=== PATIENT | female | born 1930 | race Caucasian/White ===

== ENCOUNTER 2019-05-14 11:50 | Inpatient (IN) ==
--- OUTSIDE RECORDS SUMMARY | 2019-05-14 11:54 | External Medical Summary | Continuity of Care Document ---
:1930 Author Name Mary Padilla Address Unavailable Unavailable , Care Team Providers Name Role Phone Unavailable Unavailable Unavailable Seema MORRIS Unavailable [email or web address] Unavailable Unavailable Unavailable Unavailable Unavailable Problems Multiple sclerosis (340) (G35) Postmenopausal bleeding (627.1) (N95.0) Folliculitis (704.8) (L73.9) Allergies and Adverse Reactions Penicillins (Allergy) Medications Vitamin D TABS , M.D. Refills: 0 Azithromycin 250 MG Oral Tablet; TAKE 2 TABLETS ON DAY 1 THEN TAKE 1 TABLET A DAY FOR 4 DAYS. ALEXANDRA Stephenson Start: 25-Jan-2013 Quantity: 1 6 EA Disp Pack Refills: 0 Multi-Vitamin TABS , M.D. Refills: 0 Baclofen 20 MG Oral Tablet; Take 1 tablet twice daily , M.D. Refills: 0 Amantadine HCl - 100 MG Oral Capsule; TAKE 1 CAPSULE DAILY. , M.D. Quantity: 90 Refills: 3 CeleBREX 50 MG Oral Capsule , M.D. Refills: 0 Procedures History of Tubal Ligation Status: Comple ana laura History of Cataract Surgery Status: Comp leted History of Oral Surgery Tooth Extraction Status: Completed Immunizations Influenza On: 18-May-2003 0:00 Pneumo On: 30-Jun-2011 Social History - Smoking Status Never smoker Plan of Treatment Planned Observations Planned Goals not documented Results No Known Results Results not documented
[2019-05-14 12:49] LABS: Basophils # (auto) 0.05 K/uL (0-0.2); Basophils % (auto) 0.4 %; Eosinophils # (auto) 1.29 K/uL (0-0.5); Eosinophils % (auto) 9.7 %; Hematocrit (blood only) 37.3 % (37-47); Hemoglobin 11.8 g/dL (12.0-16.0); Immature Granulocytes # (auto) 0.04 K/uL (0.00-0.02); Immature Granulocytes % (auto) 0.3 %; Lymphocytes # (auto) 4.13 K/uL (1.2-3.4); Lymphocytes % (auto) 31.1 %; Mean Corpuscular Hemoglobin 27.8 pg (25-34); Mean Corpuscular Hgb Conc 31.6 g/dL (32-36); Mean Corpuscular Volume 87.8 fL (80-100); Mean Platelet Volume 10.3 fL (7.4-10.4); Monocytes % (auto) 7.5 %; Neutrophils # (auto) 6.77 K/uL (1.4-6.5); Platelet Count 234 K/uL (130-400); RDW Standard Deviation 51.6 fL (36.4-46.3); Red Blood Count 4.25 M/uL (4.2-5.4); White Blood Count 13.28 K/uL (4.8-10.8)
[2019-05-14 13:02] LABS: Partial Thromboplastin Ratio 0.9; Partial Thromboplastin Time 23.9 Seconds (21.0-31.0); Prothrombin Time 10.5 Seconds (9.0-12.0)
[2019-05-14 13:07] LABS: Albumin Level 2.8 gm/dl (3.4-5.0); BUN Creatinine Ratio 35.2 (10-20); Calcium 8.8 mg/dl (8.5-10.1); Creatinine Clr Calc Pharmacy 62.2 ml/min; Est GFR (African American) 94.5; Est GFR (Non-African American) 81.5; Potassium 3.8 mmol/L (3.5-5.1)
[2019-05-14 13:09] LABS: Albumin Globulin Ratio 0.8 (0.9-2); Bilirubin,Total 0.3 mg/dl (0.2-1); Globulin 3.7 gm/dl (2.5-4.0); Total Protein 6.5 gm/dl (6.4-8.2)
[2019-05-14] MEDS ORDERED: IOVERSOL 100ml IV PRN (13:59)
--- NOTE | 2019-05-14 14:13 | CT Scan Report ---
CT SCAN OF THE ABDOMEN AND PELVIS WITH IV CONTRAST CLINICAL HISTORY: Right lower quadrant abdominal pain. Rectal bleeding. COMPARISON STUDY: Chest CT dated 08/05/2012. Renal ultrasound dated 11/30/2013. TECHNIQUE: Following the IV administration of 93 cc of Optiray 320, CT scan of the abdomen and pelvi s is performed from the lung bases to the proximal femora. Images are reviewed in the axial, sagittal , and coronal planes. IV contrast was administered without complication. A dose lowering technique wa s utilized adhering to the principles of ALARA. The examination is degraded by motion artifact. CT DOSE: 468.29 mGy.cm FINDINGS: Lung bases: The heart is enlarged and without pericardial effusion. The coronary arteries are densely calcified. There is bibasilar scarring/atelectasis. No airspace consolidation or pleural effusion is seen at the lung bases. A left paramediastinal mass lesion is partially visualized along the left he art border. This was also seen in 2011. Liver: The contrast-enhanced liver is normal in size, contour, and attenuation. There is no intrahepa tic biliary ductal dilatation. The hepatic veins and portal veins are patent. Gallbladder: Unremarkable. Spleen: Normal in size and attenuation. Pancreas: Moderately atrophic and grossly unremarkable. Adrenal glands: Unremarkable. Kidneys: The contrast enhanced kidneys demonstrate cortical atrophy and are without hydronephrosis. T he kidneys enhance symmetrically. A 1.7 cm cyst is noted in the right kidney. Additional subcentimete r cortical hypodensities also likely represent cysts but are too small for definitive characterizatio n. Abdominal vasculature: The abdominal aorta is normal in course and caliber noting moderate to advance d atherosclerotic calcification. Bowel: There is advanced colonic diverticulosis without CT evidence of acute diverticulitis. No bowel obstruction is seen. Moderate constipation is observed. There are duodenal diverticula. The appendix is not visualized. The rectal wall appears mildly thickened and hyperemic and there is perirectal s tranding. Peritoneum: There is no intraperitoneal free air or abdominal ascites. There is a small fat-containin g umbilical hernia. Lymphadenopathy: None. Pelvic viscera: The bladder wall is mildly thickened and trabeculated. Numerous bladder diverticula a re identified. The uterus is normal as imaged. No adnexal lesion is seen. Skeletal structures: The skeletal structures are osteopenic. Moderate to advanced lumbosacral spondyl osis is observed. A moderate compression deformity is noted in L2. Advanced arthritic change is seen in the hips. Sclerotic change is noted in the sacroiliac joints. No lytic or blastic lesions are seen . IMPRESSION: 1. Findings suggest a mild proctitis. Clinical correlation will be required. 2. Advanced colonic diverticulosis without clear CT evidence of acute diverticulitis. 3. 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 This has been prese nt dating back to at least 2011 and remains pathologically indeterminant. 4. Cardiomegaly. 5. Moderate constipation. No bowel obstruction is seen. 6. There are numerous bladder diverticula. 7. Additional findings as above. Electronically signed by: Ramón Villareal M.D. 05/14/2019 2:12 PM
--- NOTE | 2019-05-14 16:41 | Emergency Department Note ---
Entered by Jeannine Kohler acting as a scribe for History of Present Illness General Chief complaint: Rectal Bleed Stated complaint: RECTAL BLEEDING Source: patient and family ( ) History of Present Illness Onset (ago): day(s) 3 Location: abdomen Pain Consistency: + intermittent Quality: + other (rectal bleeding) Associated symptoms: + other (negative abdominal pain; negative lighthead edness); no shortness of breath The patient is a 88 year old female with a PMHx of multiple sclerosis, TIA, CVA, and Afib with RVR who presents to the Emergency Room with complaints of intermittent rectal bleeding that began about 3 days prior to arrival, per the patient's . The patient's states that this has been bright red blood, but states that he does not know if the patient has had any black stool. The patient's reports that they have been performing tests on the patient at [facility], and states that these have shown the patient's hemoglobin decreasing and her white blood cell count increasing. The patient denies abdominal pain, shortness of breath, and lightheadedness. Per the patient's , the patient is on aspirin, but states that this was stopped after the patient's first episode of bloody stool. The patient's reports that the patient has a history of dementia, and has left-sided weakness from a previous stroke. Home Medications Home Medications Medication Instructions Recorded Confirmed Type amiodarone [Pacerone] 200 mg PO DAILY 05/14/19 05/14/19 History atorvastatin [Lipitor] 40 mg PO DAILY 05/14/19 05/14/19 History clobetasol-emollient 1 applic TOPICAL BID 05/14/19 05/14/19 History levetiracetam [Keppra] 750 mg PO BID 05/14/19 05/14/19 History levothyroxine [Synthroid] 125 mcg PO DAILY 05/14/19 05/14/19 History metoprolol tartrate 12.5 mg PO BID 05/14/19 05/14/19 History omeprazole 40 mg PO BID 05/14/19 05/14/19 History sennosides-docusate sodium 2 tab PO BID 05/14/19 05/14/19 History [Senna-S] Allergies Allergy/AdvReac Type Severity Reaction Status Date / Time Penicillins Allergy Mild RASH Verified 05/14/19 13:59 Past Med/Surg History Medical History Multiple sclerosis (Chronic) TIA (transient ischemic attack) (Chronic) Cerebral vascular disease (Chronic) Chest mass (Chronic) CVA (cerebral vascular accident) (Acute) Atrial fibrillation with RVR (Acute 11/25/13) CVA (cerebral vascular accident) (Acute) Surgical History History of dilation and curettage (Resolved) History of hysterectomy (Resolved) History of tubal ligation (Resolved) Family History Other No pertinent family history in first degree relatives Social History Preferred Language: Romanian marital status: Current Living Situation: [facility] Feels Safe at Home: Yes Smoking Status: Never smoker Review of Systems See HPI for pertinent positives & negatives. and A total of 10 systems reviewed and were otherwise negative Physical Exam Vital Signs Vital Signs - 24 hr 05/14/19 11:50 05/14/19 13:47 05/14/19 15:52 Temperature 36.4 C L Temperature Source Axillary Sepsis Recent Fever Within 48 Hours No Sepsis New/Unexplained Change in Mental Status No Sepsis Action Taken by Nursing No Action Required Pulse Rate 58 L Pulse Rate [Radial] 61 64 Pulse Rhythm [Radial] Regular Regular Respiratory Rate 18 20 20 Respiratory Effort / Characteristics Non-Labored Non-Labored Respiratory Depth Normal Normal Normal Respiratory Pattern Regular Regular Blood Pressure 150/90 H Blood Pressure [Right Arm] 168/82 H 181/82 H Blood Pressure Mean 110 Blood Pressure Mean [Right Arm] 110 115 Pulse Oximetry 96 93 95 Oxygen Delivery Method Room Air Room Air Room Air Constitutional: Vital signs reviewed. Eyes: Pupils are equal round reactive to light. Conjunctiva are noninjected. ENT: Pharynx is clear without erythema or exudate. Mucous membranes are moist. Neck supple without meningeal signs. Respiratory: Clear to auscultation bilaterally. Breath sounds are equal bilaterally. Cardiovascular: Regular rate and rhythm. No rubs or gallops. GI: Soft, nondistended and nontender. Bowel sounds are present. Rectal: Maroon colored stool. Guaiac positive. Musculoskeletal: No peripheral edema. No lower extremity tenderness. Integumentary: No cyanosis. Neurological: The patient is awake and alert. Left-sided weakness. Psychiatric: Normal affect. Course 1202: Past medical records reviewed. The patient was evaluated in room C12B. A complete history and physical exam was performed. Per the patient's [facility] records, three days ago the patient had two bloody soft bowel movements, had no blood bowel movements yesterday, and then had two bloody bowel movements today. Per the patient's records, the patient's stools are finesse in color and clotted blood was noted. The patient's records state that her hemoglobin was 12.3 two days ago, but was found to be 11.4 today. 1432: I talked to the patient and her about the test results. [facility] evaluation. Consultations Consultation #1: I [facility] for further evaluation. Time: 14:32 Administered Medications Ioversol (Optiray 320 100ml) 93 ml IV ONCE PRN PRN Reason: Interaction Checking Stop: 05/18/19 13:58 Last Admin: 05/14/19 14:00 Dose: 93 ml Documented by: [id number] Medical Decision Making Differential Diagnosis Differential diagnoses include GI bleed, external hemorrhoid, internal hemorrhoid, AV fistula, diverticulosis, anemia, and others were considered. Medical Records Attestation: I reviewed the patient's medical records. I did perform a limited focused review of portions of the patient's old chart on the electronic medical record. The patient has had no recent pertinent visits to this hospital. Home Medications Current Medication List: was personally reviewed by me Laboratory Data Attestation: I reviewed the patient's lab results. Result diagrams: 05/14/19 12:29 05/14/19 12:29 Lab Results 05/14/19 05/14/19 05/14/19 Range/Units 12:29 12:29 12:29 WBC 13.28 H (4.8-10.8) K/uL RBC 4.25 (4.2-5.4) M/uL Hgb 11.8 L (12.0-16.0) g/dL Hct 37.3 (37-47) % MCV 87.8 (80-100) fL MCH 27.8 (25-34) pg MCHC 31.6 L (32-36) g/dL RDW Std Deviation 51.6 H (36.4-46.3) fL RDW Coeff of Jessy 16.0 H (11.5-14.5) % Plt Count 234 (130-400) K/uL MPV 10.3 (7.4-10.4) fL Immature Gran % (Auto) 0.3 % Neut % (Auto) 51.0 % Lymph % (Auto) 31.1 % [place] % (Auto) 7.5 % Eos % (Auto) 9.7 % Baso % (Auto) 0.4 % Immature Gran # (Auto) 0.04 H (0.00-0.02) K/uL Neut # (Auto) 6.77 H (1.4-6.5) K/uL Lymph # (Auto) 4.13 H (1.2-3.4) K/uL [place] # (Auto) 1.00 H (0.11-0.59) K/uL Eos # (Auto) 1.29 H (0-0.5) K/uL Baso # (Auto) 0.05 (0-0.2) K/uL PT 10.5 (9.0-12.0) Seconds INR 1.0 (0.9-1.1) APTT 23.9 (21.0-31.0) Seconds PTT Ratio 0.9 Sodium 145 (136-145) mmol/L Potassium 3.8 (3.5-5.1) mmol/L Chloride 113 H (98-107) mmol/L Carbon Dioxide 25 (21-32) mmol/L Anion Gap 7.0 (3-11) BUN 21 H (7-18) mg/dl Creatinine 0.61 (0.6-1.2) mg/dl Est Cr Clr Drug Dosing 62.2 ml/min Est GFR ( Amer) 94.5 Est GFR (Non-Af Amer) 81.5 BUN/Creatinine Ratio 35.2 H (10-20) Glucose 88 (70-99) mg/dl Calcium 8.8 (8.5-10.1) mg/dl Total Bilirubin 0.3 (0.2-1) mg/dl AST 11 L (15-37) U/L ALT 13 (12-78) U/L Alkaline Phosphatase 146 H (45-117) U/L Total Protein 6.5 (6.4-8.2) gm/dl Albumin 2.8 L (3.4-5.0) gm/dl Globulin 3.7 (2.5-4.0) gm/dl Albumin/Globulin Ratio 0.8 L (0.9-2) Blood Type Antibody Screen 05/14/19 Range/Units 12:29 WBC (4.8-10.8) K/uL RBC (4.2-5.4) M/uL Hgb (12.0-16.0) g/dL Hct (37-47) % MCV (80-100) fL MCH (25-34) pg MCHC (32-36) g/dL RDW Std Deviation (36.4-46.3) fL RDW Coeff of Jessy (11.5-14.5) % Plt Count (130-400) K/uL MPV (7.4-10.4) fL Immature Gran % (Auto) % Neut % (Auto) % Lymph % (Auto) % [place] % (Auto) % Eos % (Auto) % Baso % (Auto) % Immature Gran # (Auto) (0.00-0.02) K/uL Neut # (Auto) (1.4-6.5) K/uL Lymph # (Auto) (1.2-3.4) K/uL [place] # (Auto) (0.11-0.59) K/uL Eos # (Auto) (0-0.5) K/uL Baso # (Auto) (0-0.2) K/uL PT (9.0-12.0) Seconds INR (0.9-1.1) APTT (21.0-31.0) Seconds PTT Ratio Sodium (136-145) mmol/L Potassium (3.5-5.1) mmol/L Chloride (98-107) mmol/L Carbon Dioxide (21-32) mmol/L Anion Gap (3-11) BUN (7-18) mg/dl Creatinine (0.6-1.2) mg/dl Est Cr Clr Drug Dosing ml/min Est GFR ( Amer) Est GFR (Non-Af Amer) BUN/Creatinine Ratio (10-20) Glucose (70-99) mg/dl Calcium (8.5-10.1) mg/dl Total Bilirubin (0.2-1) mg/dl AST (15-37) U/L ALT (12-78) U/L Alkaline Phosphatase (45-117) U/L Total Protein (6.4-8.2) gm/dl Albumin (3.4-5.0) gm/dl Globulin (2.5-4.0) gm/dl Albumin/Globulin Ratio (0.9-2) Blood Type O Negative Antibody Screen NEGATIVE Imaging Data Radiologist's Impression: Radiology results as stated below per my review and the radiologist's interpretation: CT SCAN OF THE ABDOMEN AND PELVIS WITH IV CONTRAST CLINICAL HISTORY: Right lower quadrant abdominal pain. Rectal bleeding. COMPARISON STUDY: Chest CT dated 08/05/2012. Renal ultrasound dated 11/30/2013. TECHNIQUE: Following the IV administration of 93 cc of Optiray 320, CT scan of the abdomen and pelvis is performed from the lung bases to the proximal femora. Images are reviewed in the axial, sagittal, and coronal planes. IV contrast was administered without complication. A dose lowering technique was utilized adhering to the principles of ALARA. The examination is degraded by motion artifact. CT DOSE: 468.29 mGy.cm FINDINGS: Lung bases: The heart is enlarged and without pericardial effusion. The coronary arteries are densely calcified. There is bibasilar scarring/atelectasis. No airspace consolidation or pleural effusion is seen at the lung bases. A left paramediastinal mass lesion is partially visualized along the left heart border. This was also seen in 2012. Liver: The contrast-enhanced liver is normal in size, contour, and attenuation. There is no intrahepatic biliary ductal dilatation. The hepatic veins and portal veins are patent. Gallbladder: Unremarkable. Spleen: Normal in size and attenuation. Pancreas: Moderately atrophic and grossly unremarkable. Adrenal glands: Unremarkable. Kidneys: The contrast enhanced kidneys demonstrate cortical atrophy and are without hydronephrosis. The kidneys enhance symmetrically. A 1.7 cm cyst is noted in the right kidney. Additional subcentimeter cortical hypodensities also likely represent cysts but are too small for definitive characterization. Abdominal vasculature: The abdominal aorta is normal in course and caliber not ing moderate to advanced atherosclerotic calcification. Bowel: There is advanced colonic diverticulosis without CT evidence of acute diverticulitis. No bowel obstruction is seen. Moderate constipation is observed. There are duodenal diverticula. The appendix is not visualized. The rectal wall appears mildly thickened and hyperemic and there is perirectal stranding. Peritoneum: There is no intraperitoneal free air or abdominal ascites. There is a small fat-containing umbilical hernia. Lymphadenopathy: None. Pelvic viscera: The bladder wall is mildly thickened and trabeculated. Numerous bladder diverticula are identified. The uterus is normal as imaged. No adnexal lesion is seen. Skeletal structures: The skeletal structures are osteopenic. Moderate to advanced lumbosacral spondylosis is observed. A moderate compression deformity is noted in L2. Advanced arthritic change is seen in the hips. Sclerotic change is noted in the sacroiliac joints. No lytic or blastic lesions are seen. IMPRESSION: 1. Findings suggest a mild proctitis. Clinical correlation will be required. 2. Advanced colonic diverticulosis without clear CT evidence of acute diverticulitis. 3. 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 This has been present dating back to at least 2011 and remains pathologically indeterminant. 4. Cardiomegaly. 5. Moderate constipation. No bowel obstruction is seen. 6. There are numerous bladder diverticula. 7. Additional findings as above. Electronically signed by: Ramón Villareal M.D. 05/14/2019 2:12 PM Blood Pressure Blood Pressure Findings: Elevated blood pressure Blood Pressure Disposition: further management by hospitalist [facility] Narrative I did evaluate the patient as noted above. Patient is presenting with rectal bleeding. I did examine the patient and she does have maroon stool which is strongly guaiac positive. She denies any abdominal pain but the detention staff stated that she did complain of right-sided pain earlier. IV access was established. The patient was placed on a continuous shelter monitor. She is hemodynamically stable. I did order and review the patient's blood work as noted in the electronic medical record. She is anemic with a hemoglobin of 11.8. Her white count is 13.28. I did order a CT of the abdomen and pelvis. I did review the images myself as well as the radiology report as described above. He has mild proctitis and diverticulosis without diverticulitis. I did discuss the test results with the patient and her . I did recommend hosp italization for further care and evaluation. I did discuss case with the hospitalist and case folder. Impression & Plan Lower GI bleed, Anemia, Diverticulosis, Proctitis Discharge Plan Visit Data Chief Complaint: Rectal Bleed Stated Complaint: RECTAL BLEEDING ED Provider: Kt Tracy Discharge Problem: Lower GI bleed, Anemia, Diverticulosis, Proctitis Patient Disposition: Being Evaluated by Hospitalist Forms Stand Alone Forms: My [facility] Prescriptions Prescriptions: No Action atorvastatin [Lipitor] 40 mg Tablet 40 mg PO DAILY RF: 0 amiodarone [Pacerone] 200 mg Tablet 200 mg PO DAILY RF: 0 sennosides-docusate sodium [Senna-S] 8.6-50 mg Tablet 2 tab PO BID RF: 0 omeprazole 40 mg Capsule,Delayed Release(Dr/Ec) 40 mg PO BID RF: 0 levothyroxine [Synthroid] 125 mcg Tablet 125 mcg PO DAILY RF: 0 clobetasol-emollient 0.05 % cream 1 applic topical BID RF: 0 levetiracetam [Keppra] 100 mg/mL Solution 750 mg PO BID RF: 0 metoprolol tartrate 25 mg Tablet 12.5 mg PO BID RF: 0 Referrals Referrals: Medina Morse [place] [Primary Care Provider] - Discharge Problem: Anemia Qualifiers: Anemia type: unspecified type Qualified Code(s): D64.9 - Anemia, unspecified The scribe's documentation has been prepared under my direction and personally reviewed by me in its entirety. I confirm that the note above accurately reflects all work, treatment, procedures, and medical decision making performed by me.
--- NOTE | 2019-05-14 16:57 | History & Physical Report ---
Date of Service May 14, 2019 Assessment & Plan (1) GI bleed: Admit to PCU on telemetry Vital signs every 4 hours Keep n.p.o. for the procedure EGD Consulted GI Dr. Sinha CBC every 6 hours Monitor CBC CMP Fluid hydration with normal saline 80 cc/h DVT prophylaxis SCDs and LOULOU devinantonieta DNR/DNI Present on Admission?: Yes (2) Diverticulosis: Patient has numerous diverticulosis without diverticulitis and proctitis. We will start empiric therapy for proctitis Cipro and Flagyl until GI give us new recommendations. Present on Admission?: Yes (3) Anemia: At this point is not clear if this is acute or chronic anemia. Will do iron studies and start patient on iron sulfate. Present on Admission?: Yes (4) CVA (cerebral vascular accident): Continue monitoring. EKG pending. 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 Present on Admission?: Yes History of Present Illness Chief Complaint: Blood in the stool Primary Care Provider: Mini [facility] Patient is a 88 years old female with past medical history of hypothyroidism, high hyperlipidemia, constipation, GERD, coronary artery disease, stroke, bedbound states that Mini who was brought to this morning with a concern that she has melena in her diaper for couple of days. Patient is in her usual state of health. 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 In the review of system has been said that patient had a dark stool for several days and that has been ongoing. He said that he did not see it himself but that was reported as small to moderate amount of stool on her diaper. Patient also complains of intermittent itch and lesions that he she has all over her body more on the right side. It does not appear to be in the dermatome distribution. Patient also has some lesions located on her left side and per her it migrates and it was first on her lower extremities and now is pretty much spread all over. Other than that patient denies fever, headache, chest pain, shortness of breath, abdominal pain, frequency, urgency, hemoptysis, hematuria, dysuria. Urine analysis pending. BNP pending. Labs are reviewed: WBC 13.28, hemoglobin 11.8, hematocrit 37.3, platelets 234, PT 10.5, INR 1 APTT 23.9. Sodium 145 potassium 3.8, chloride 113, BUN 21 creatinine 0.61, GFR 81.5, AST 11, ALT 13, alkaline phosphatase 146. CT of the abdomen and pelvis shows a mild proctitis. Advanced colonic diverticulosis without clear CT evidence of acute diverticulitis. A code and test clerk he has no mass lesion in the left upper chest is partially visualized. This was dating back in 2011 and remains pathologically indeterminant. Cardiomegaly. Moderate constipation no bowel obstruction is seen. There are numerous bladder diverticula. Decision was made to admit patient to PCU on telemetry for GI bleed Dr. Sinha lodging facilities manager is going to see the patient in the morning. Allergies Allergy/AdvReac Type Severity Reaction Status Date / Time Penicillins Allergy Mild RASH Verified 05/14/19 13:59 Home Medications Home Medications Medication Instructions Recorded Confirmed Type amiodarone [Pacerone] 200 mg PO DAILY 05/14/19 05/14/19 History atorvastatin [Lipitor] 40 mg PO DAILY 05/14/19 05/14/19 History clobetasol-emollient 1 applic TOPICAL BID 05/14/19 05/14/19 History levetiracetam [Keppra] 750 mg PO BID 05/14/19 05/14/19 History levothyroxine [Synthroid] 125 mcg PO DAILY 05/14/19 05/14/19 History metoprolol tartrate 12.5 mg PO BID 05/14/19 05/14/19 History omeprazole 40 mg PO BID 05/14/19 05/14/19 History sennosides-docusate sodium 2 tab PO BID 05/14/19 05/14/19 History [Senna-S] Past Med/Surg History Medical History Multiple sclerosis (Chronic) TIA (transient ischemic attack) (Chronic) Cerebral vascular disease (Chronic) Chest mass (Chronic) CVA (cerebral vascular accident) (Acute) Atrial fibrillation with RVR (Acute 11/25/13) CVA (cerebral vascular accident) (Acute) Surgical History History of dilation and curettage (Resolved) History of hysterectomy (Resolved) History of tubal ligation (Resolved) Family History Other No pertinent family history in first degree relatives Social History Preferred Language: Luxembourgish marital status: Current Living Situation: Long-Term Feels Safe at Home: Yes Smoking Status: Never smoker Review of Systems Review of Systems: All systems reviewed & are unremarkable except as noted in HPI & below Physical Exam Constitutional: WD/WN, vitals as above well developed and + frail appearing Eyes: PERRL, conjunctivae normal, anicteric sclerae ENMT: external ear and nose normal, oropharynx normal Neck: trachea midline, no thyromegaly Respiratory: normal respiratory effort, lungs clear to auscultation Cardiovascular: RRR, no murmur, no edema Vessels: dorsalis pedis pulses present Extremities: + pedal edema Gastrointestinal (Abdomen): normal bowel sounds, soft, nontender, no hepato splenomegaly Musculoskeletal: no cyanosis or clubbing, extremities motor strength 5/5 Left-sided weakness and face droop. Skin: Numerous skin lesions, papule as in different stages of healing very itchy. It could be either insect bite or scabies, fleabites. Neurologic: Left-sided weakness due to the stroke and paralysis Psychiatric: A+Ox3, euthymic affect Lymphatic: no cervical or axillary lymphadenopathy Results & Data Vital Signs (Past 12 Hours) Vital Signs Temp Pulse Pulse Resp BP BP Pulse Ox 05/14/19 15:52 64 20 181/82 H 95 05/14/19 13:47 61 20 168/82 H 93 05/14/19 11:50 36.4 C L 58 L 18 150/90 H 96 Code Status & VTE Plan Code Status DNR/DNI per her POA. Patient is dysarthric poor historian. VTE Prophylaxis Plan VTE Prophylaxis will be ordered: No PG Care Time/CCT Total # of Minutes Spent Total Time Spent with Patient: Total time spent is greater than 50% in coordination of care (as documented) at patient's floor/unit and/or counseling patient: (1) Anemia Anemia type: unspecified type Qualified Code(s): D64.9 - Anemia, unspecified
[2019-05-14] MEDS ORDERED: HydrALAZINE 10 MG TAB PO PRN (18:37)
[2019-05-14] MEDS ORDERED: hydrOXYzine HCl 10 MG TAB PO PRN (18:37)
[2019-05-14] MEDS ORDERED: PERMETHRIN 5% CR 60 GM TUBE EXT ONE ×2 (18:37→20:00)
[2019-05-14] MEDS ORDERED: ACETAMINOPHEN 325 MG TAB PO PRN (18:37)
[2019-05-14] MEDS ORDERED: LAVAGE SOLUTION 4000ML PO SCH (18:37)
[2019-05-14] MEDS ORDERED: ALUMINUM/MAGNESIUM SUSP 30 ML UDC PO PRN (18:37)
[2019-05-14] MEDS ORDERED: MAGNESIUM HYDROXIDE SUSP 30 ML UDC PO PRN (18:37)
[2019-05-14] MEDS ORDERED: ZOLPIDEM TARTRATE 5 MG TAB PO PRN (18:37)
[2019-05-14 19:01] LABS: Hematocrit (blood only) 39.7 % (37-47); Hemoglobin 12.4 g/dL (12.0-16.0); Mean Corpuscular Hemoglobin 27.4 pg (25-34); Mean Corpuscular Hgb Conc 31.2 g/dL (32-36); Mean Corpuscular Volume 87.6 fL (80-100); Mean Platelet Volume 9.3 fL (7.4-10.4); Platelet Count 235 K/uL (130-400); RDW Coefficient of Variation 15.8 % (11.5-14.5); RDW Standard Deviation 50.6 fL (36.4-46.3); Red Blood Count 4.53 M/uL (4.2-5.4); White Blood Count 11.97 K/uL (4.8-10.8)
[2019-05-14] MEDS: SODIUM CHLORIDE 0.9% 1000ML 1,000 ML IV SCH (20:19)
[2019-05-14] MEDS: levETIRAcetam ORAL SOLN 100MG/ML PO SCH (20:23)
[2019-05-14] MEDS: METOPROLOL TARTRATE 25 MG TAB PO SCH (20:25)
[2019-05-14] MEDS: PANTOprazole 40 MG TAB PO SCH (20:26)
[2019-05-14] MEDS: DOCUSATE SODIUM/SENNA 50/8.6MG TAB PO SCH (20:27)
[2019-05-14] MEDS: metroNIDAZOLE 500 MG/100 ML BAG IV SCH (20:28)
[2019-05-14] MEDS ORDERED: NON-FORMULARY MEDICATION (Omeprazole 40 MG) PO SCH (21:00)
[2019-05-14] MEDS: POLYETHYLENE (MIRALAX) 17 GM PACK PO SCH (21:53)
[2019-05-14] MEDS: cefTRIAXone SODIUM 1,000 MG in DEXTROSE 5% 50 ML IV SCH (21:54)
[2019-05-14] MEDS: EMBELINE E CREAM 0.05% 15 GM EXT SCH (21:55)
[2019-05-15 02:46] LABS: Appearance Urine Cloudy (Clear); Bacteria Urine Automated 3+ (Negative); Bilirubin Urine Negative (Negative); Blood Urine Trace (Negative); Color Urine Yellow; Epithelial Cell Urine Auto >30 /lpf (0-5); Glucose Urine UA Negative (Negative); Ketones Urine Negative (Negative); Leukocyte Esterase Urine 2+ (Negative); Nitrite Urine Negative (Negative); Protein Urine Negative (Negative); Specific Gravity Urine > 1.045 (1.000-1.030); Urobilinogen Urine Negative (Negative); WBC Urine Automated >30 /hpf (0-5)
[2019-05-15] MEDS: metroNIDAZOLE 500 MG/100 ML BAG IV SCH ×2 (04:01→11:39)
[2019-05-15] MEDS: LEVOTHYROXINE SODIUM 125 MCG TABLET PO SCH (05:31)
[2019-05-15 06:27] LABS: Basophils # (auto) 0.03 K/uL (0-0.2); Basophils % (auto) 0.3 %; Eosinophils # (auto) 1.14 K/uL (0-0.5); Eosinophils % (auto) 9.6 %; Hematocrit (blood only) 37.2 % (37-47); Hemoglobin 11.6 g/dL (12.0-16.0); Immature Granulocytes # (auto) 0.03 K/uL (0.00-0.02); Immature Granulocytes % (auto) 0.3 %; Lymphocytes % (auto) 26.9 %; Mean Corpuscular Hemoglobin 27.2 pg (25-34); Mean Corpuscular Hgb Conc 31.2 g/dL (32-36); Mean Corpuscular Volume 87.1 fL (80-100); Mean Platelet Volume 9.3 fL (7.4-10.4); Monocytes # (auto) 0.71 K/uL (0.11-0.59); Neutrophils # (auto) 6.79 K/uL (1.4-6.5); Neutrophils % (auto) 56.9 %; Platelet Count 223 K/uL (130-400); RDW Coefficient of Variation 15.7 % (11.5-14.5); RDW Standard Deviation 50.2 fL (36.4-46.3); Red Blood Count 4.27 M/uL (4.2-5.4); Reticulocyte % 2.3 % (0.5-2.0)
[2019-05-15 07:04] LABS: Calcium 8.6 mg/dl (8.5-10.1); Creatinine Clr Calc Pharmacy 67.1 ml/min; Est GFR (African American) 98.3; Est GFR (Non-African American) 84.8; Potassium 3.5 mmol/L (3.5-5.1)
[2019-05-15 07:07] LABS: Albumin Globulin Ratio 0.8 (0.9-2); Bilirubin,Total 0.5 mg/dl (0.2-1); Globulin 3.6 gm/dl (2.5-4.0); Total Protein 6.6 gm/dl (6.4-8.2)
[2019-05-15 07:33] LABS: Estimated Average Glucose 108 mg/dl; Hemoglobin A1C 5.4 % (4.5-5.6)
[2019-05-15 09:00] LABS: Folate (Folic Acid) 16.59 ng/ml (>5.38)
[2019-05-15] MEDS: SODIUM CHLORIDE 0.9% 1000ML 1,000 ML IV SCH (09:32)
[2019-05-15] MEDS: cefTRIAXone SODIUM 1,000 MG in DEXTROSE 5% 50 ML IV SCH ×2 (09:32→20:54)
[2019-05-15] MEDS: ATORVASTATIN 40 MG TAB PO SCH (11:40)
[2019-05-15] MEDS: PANTOprazole 40 MG TAB PO SCH (11:40)
[2019-05-15] MEDS: levETIRAcetam ORAL SOLN 100MG/ML PO SCH ×2 (11:40→20:55)
[2019-05-15] MEDS: AMIODARONE 200 MG TAB PO SCH (11:40)
[2019-05-15] MEDS: METOPROLOL TARTRATE 25 MG TAB PO SCH ×2 (11:40→20:52)
[2019-05-15] MEDS: POLYETHYLENE (MIRALAX) 17 GM PACK PO SCH (11:40)
[2019-05-15] MEDS: EMBELINE E CREAM 0.05% 15 GM EXT SCH (11:41)
[2019-05-15] MEDS: DOCUSATE SODIUM/SENNA 50/8.6MG TAB PO SCH ×2 (11:41→20:53)
--- NOTE | 2019-05-15 14:17 | Hospitalist Progress Note ---
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 no new findings (4) Proctitis: seen on CT continue on Flagyl, Rocephin (5) UTI (urinary tract infection): possible UTI with > 30 WBC on UA will continue on Rocephin follow up urine culture Subjective patient is pleasantly demented, cannot answer any questions at the bedside he says that she has had some dark stools in diaper past few days no abdominal pain, no vomiting to his knowledge, she has not appeared to be in distress Hb has been stable, 11.8 on admission, 11.6 today in the morning BMP at baseline UA showed possible UTI with > [address] with some proctitis, no diverticulitis, no other acute findings patient was NPO after midnight, will allow her to eat as there is no need for emergent scope Review of Systems Review of Systems: Unobtainable due to cognitive status (dementia) Physical Exam Constitutional: WD/WN, vitals as above Eyes: PERRL, conjunctivae normal, anicteric sclerae ENMT: external ear and nose normal, oropharynx normal Neck: trachea midline, no thyromegaly Respiratory: normal respiratory effort, lungs clear to auscultation Cardiovascular: RRR, no murmur, no edema Gastrointestinal (Abdomen): normal bowel sounds, soft, nontender, no hepatosplenomegaly Musculoskeletal: no cyanosis or clubbing, extremities motor strength 5/5 Skin: no rashes, warm and dry Neurologic: patellar DTR's 2+ bilat, sensation intact and PERRL, EOMI, acco mmodation nl, no face palsy, no dysarthria Psychiatric: Orientation: alert, oriented to person and cooperative; + not oriented to place and + not oriented to time Lymphatic: no cervical or axillary lymphadenopathy Results & Data Vital Signs (Past 12 Hours) Vital Signs Temp Pulse Pulse Resp BP BP Pulse Ox 05/15/19 12:15 65 05/15/19 12:01 36.6 C 79 18 162/71 H 94 05/15/19 07:03 36.5 C 68 18 140/95 93 05/15/19 03:05 36.4 C L 70 18 170/87 H 93 Laboratory Results Laboratory Results - last 24 hr 05/14/19 05/14/19 05/14/19 18:47 18:47 20:27 WBC 11.97 H RBC 4.53 Hgb 12.4 Hct 39.7 MCV 87.6 MCH 27.4 MCHC 31.2 L RDW Std Deviation 50.6 H RDW Coeff of Jessy 15.8 H Plt Count 235 MPV 9.3 Immature Gran % (Auto) Neut % (Auto) Lymph % (Auto) [place] % (Auto) Eos % (Auto) Baso % (Auto) Reticulocyte % (Auto) Immature Gran # (Auto) Neut # (Auto) Lymph # (Auto) [place] # (Auto) Eos # (Auto) Baso # (Auto) Reticulocyte # Sodium Potassium Chloride Carbon Dioxide Anion Gap BUN Creatinine Est Cr Clr Drug Dosing Est GFR ( Amer) Est GFR (Non-Af Amer) BUN/Creatinine Ratio Glucose Estimat Average Glucose Hemoglobin A1c Calcium Iron TIBC Total Bilirubin AST ALT Alkaline Phosphatase NT-Pro-B Natriuret Pep 461 Total Protein Albumin Globulin Albumin/Globulin Ratio Triglycerides Cholesterol LDL Cholesterol, Calc VLDL Cholesterol, Calc HDL Cholesterol Cholesterol/HDL Ratio Vitamin B12 Folate Urine Color Urine Appearance Urine pH Ur Specific [place] Urine Protein Urine Glucose (UA) Urine Ketones Urine Blood Urine Nitrite Urine Bilirubin Urine Urobilinogen Ur Leukocyte Esterase Urine WBC (Auto) Urine RBC (Auto) U Hyaline Cast (Auto) U Epithel Cells (Auto) Urine Bacteria (Auto) Nasal Screen MRSA (PCR) Negative 05/15/19 05/15/19 05/15/19 02:40 06:09 06:09 WBC 11.90 H RBC 4.27 Hgb 11.6 L Hct 37.2 MCV 87.1 MCH 27.2 MCHC 31.2 L RDW Std Deviation 50.2 H RDW Coeff of Jessy 15.7 H Plt Count 223 MPV 9.3 Immature Gran % (Auto) 0.3 Neut % (Auto) 56.9 Lymph % (Auto) 26.9 [place] % (Auto) 6.0 Eos % (Auto) 9.6 Baso % (Auto) 0.3 Reticulocyte % (Auto) 2.3 H Immature Gran # (Auto) 0.03 H Neut # (Auto) 6.79 H Lymph # (Auto) 3.20 Canyon # (Auto) 0.71 H Eos # (Auto) 1.14 H Baso # (Auto) 0.03 Reticulocyte # 0.10 Sodium 143 Potassium 3.5 Chloride 113 H Carbon Dioxide 22 Anion Gap 8.0 BUN 15 Creatinine 0.54 L Est Cr Clr Drug Dosing 67.1 Est GFR ( Amer) 98.3 Est GFR (Non-Af Amer) 84.8 BUN/Creatinine Ratio 27.0 H Glucose 83 Estimat Average Glucose Hemoglobin A1c Calcium 8.6 Iron 45 TIBC 285 Total Bilirubin 0.5 AST 12 L ALT 11 L Alkaline Phosphatase 144 H NT-Pro-B Natriuret Pep Total Protein 6.6 Albumin 3.0 L Globulin 3.6 Albumin/Globulin Ratio 0.8 L Triglycerides 78 Cholesterol 130 LDL Cholesterol, Calc 68 VLDL Cholesterol, Calc 16 HDL Cholesterol 46 Cholesterol/HDL Ratio 3 Vitamin B12 Folate Urine Color Yellow Urine Appearance Cloudy A Urine pH 6.0 Ur Specific [place] > 1.045 H Urine Protein Negative Urine Glucose (UA) Negative Urine Ketones Negative Urine Blood Trace H Urine Nitrite Negative Urine Bilirubin Negative Urine Urobilinogen Negative Ur Leukocyte Esterase 2+ H Urine WBC (Auto) >30 H Urine RBC (Auto) 5-10 H U Hyaline Cast (Auto) 1-5 U Epithel Cells (Auto) >30 H Urine Bacteria (Auto) 3+ H Nasal Screen MRSA (PCR) 05/15/19 05/15/19 06:09 06:09 WBC RBC Hgb Hct MCV MCH MCHC RDW Std Deviation RDW Coeff of Jessy Plt Count MPV Immature Gran % (Auto) Neut % (Auto) Lymph % (Auto) Canyon % (Auto) Eos % (Auto) Baso % (Auto) Reticulocyte % (Auto) Immature Gran # (Auto) Neut # (Auto) Lymph # (Auto) [place] # (Auto) Eos # (Auto) Baso # (Auto) Reticulocyte # Sodium Potassium Chloride Carbon Dioxide Anion Gap BUN Creatinine Est Cr Clr Drug Dosing Est GFR ( Amer) Est GFR (Non-Af Amer) BUN/Creatinine Ratio Glucose Estimat Average Glucose 108 Hemoglobin A1c 5.4 Calcium Iron TIBC Total Bilirubin AST ALT Alkaline Phosphatase NT-Pro-B Natriuret Pep Total Protein Albumin Globulin Albumin/Globulin Ratio Triglycerides Cholesterol LDL Cholesterol, Calc VLDL Cholesterol, Calc HDL Cholesterol Cholesterol/HDL Ratio Vitamin B12 320 Folate 16.59 Urine Color Urine Appearance Urine pH Ur Specific [place] Urine Protein Urine Glucose (UA) Urine Ketones Urine Blood Urine Nitrite Urine Bilirubin Urine Urobilinogen Ur Leukocyte Esterase Urine WBC (Auto) Urine RBC (Auto) U Hyaline Cast (Auto) U Epithel Cells (Auto) Urine Bacteria (Auto) Nasal Screen MRSA (PCR) Diagnostic Findings CT abdomen/pelvis IMPRESSION: 1. Findings suggest a mild proctitis. Clinical correlation will be required. 2. Advanced colonic diverticulosis without clear CT evidence of acute diverti culitis. 3. 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 This has been present dating back to at least 2011 and remains pathologically indeterminant. 4. Cardiomegaly. 5. Moderate constipation. No bowel obstruction is seen. 6. There are numerous bladder diverticula. 7. Additional findings as above. Medications Administered Current Inpatient Medications Acetaminophen (Tylenol) 650 mg PO Q4H PRN PRN Reason: Pain or Fever Stop: 06/13/19 18:36 Al Hydrox/Mg Hydrox/Simethicone (Maalox) 15 ml PO Q4H PRN PRN Reason: Dyspepsia Stop: 06/13/19 18:36 Amiodarone HCl (Cordarone) 200 mg PO DAILY [facility] Stop: 06/14/19 08:59 Last Admin: 05/15/19 11:40 Dose: 200 mg Documented by: Atorvastatin Calcium (Lipitor) 40 mg PO DAILY [facility] Stop: 06/14/19 08:59 Last Admin: 05/15/19 11:40 Dose: 40 mg Documented by: Clobetasol Propionate (Embeline E 0.05%) 1 appln EXT BID [facility] Stop: 06/13/19 20:59 Last Admin: 05/15/19 11:41 Dose: Not Given Documented by: Hydralazine HCl (Apresoline) 10 mg PO TID PRN PRN Reason: Blood Pressure - High Stop: 06/13/19 18:36 Last Admin: 05/15/19 11:40 Dose: 10 mg Documented by: Ceftriaxone Sodium 1,000 mg/ (Dextrose) 60 mls @ 120 mls/hr IV Q12H [facility]; Protocol Stop: 05/24/19 20:59 Last Infusion: 05/15/19 10:02 Dose: Infused Documented by: Metronidazole (Flagyl) 500 mg in 100 mls @ 100 mls/hr IV Q8H [facility]; Protocol Stop: 05/24/19 19:59 Last Infusion: 05/15/19 12:39 Dose: Infused Documented by: Levetiracetam (Keppra) 750 mg PO BID [facility] Stop: 06/13/19 20:59 Last Admin: 05/15/19 11:40 Dose: 750 mg Documented by: Levothyroxine Sodium (Synthroid) 125 mcg PO DAILYBB [facility] Stop: 06/14/19 06:29 Last Admin: 05/15/19 05:31 Dose: Not Given Documented by: Magnesium Hydroxide (Milk Of Magnesia) 30 ml PO Q12H PRN PRN Reason: Constipation Stop: 06/13/19 18:36 Metoprolol Tartrate (Lopressor) 12.5 mg PO BID [facility] Stop: 06/13/19 20:59 Last Admin: 05/15/19 11:40 Dose: 12.5 mg Documented by: Pantoprazole Sodium (Protonix) 40 mg PO BID [facility] Stop: 06/13/19 20:59 Last Admin: 05/15/19 11:40 Dose: 40 mg Documented by: Polyethylene Glycol (Miralax Powder Packet) 17 gm PO DAILY [facility]; Protocol Stop: 06/13/19 20:59 Last Admin: 05/15/19 11:40 Dose: 17 gm Documented by: Senna/Docusate Sodium (Senokot S) 2 tab PO BID [facility] Stop: 06/13/19 20:59 Last Admin: 05/15/19 11:41 Dose: 2 tab Documented by: Zolpidem Tartrate (Ambien) 2.5 mg PO HS PRN PRN Reason: Sleep Stop: 06/13/19 18:36 Last Admin: 05/14/19 23:43 Dose: 2.5 mg Documented by: PG Care Time/CCT Total # of Minutes Spent Total Time Spent with Patient: Total time spent is greater than 50% in coordination of care (as documented) at patient's floor/unit and/or counseling patient: (1) Anemia Anemia type: unspecified type Qualified Code(s): D64.9 - Anemia, unspecified
--- NOTE | 2019-05-15 17:25 | Gastrointestinal Consultation ---
Date of Consultation May 15, 2019 History of Present Illness Attending Physician: Randal Meraz DO HPI : 88 yo female with h/o CVA NH resident, needs assistace with ADL's now admit after having been found to have blood staining diaper for 3 days. On presentation to hospital, BP stable, hgb stable, no rise in BUN. Underwent CT which showed proctitis. Currently without symptoms, maria PO. PE: BP normal. HEENT: OC clear CV: RRR Abd: soft A/P: LGIB, CT suggestive of stercoral colitis. - No evidence of clin sig GIB. Would defer endoscopy/colonoscopy per pt preference. Diet as tolerated. Please begin bowel regimen. No need for BID PPI or Flagyl. OK for d/c home in am if hgb stable. Please call with questions. Allergies Allergy/AdvReac Type Severity Reaction Status Date / Time Penicillins Allergy Mild RASH Verified 05/14/19 13:59 Home Medications Home Medications Medication Instructions Recorded Confirmed Type amiodarone [Pacerone] 200 mg PO DAILY 05/14/19 05/14/19 History atorvastatin [Lipitor] 40 mg PO DAILY 05/14/19 05/14/19 History clobetasol-emollient 1 applic TOPICAL BID 05/14/19 05/14/19 History levetiracetam [Keppra] 750 mg PO BID 05/14/19 05/14/19 History levothyroxine [Synthroid] 125 mcg PO DAILY 05/14/19 05/14/19 History metoprolol tartrate 12.5 mg PO BID 05/14/19 05/14/19 History omeprazole 40 mg PO BID 05/14/19 05/14/19 History sennosides-docusate sodium 2 tab PO BID 05/14/19 05/14/19 History [Senna-S] Patient History Medical History Multiple sclerosis (Chronic) TIA (transient ischemic attack) (Chronic) Cerebral vascular disease (Chronic) Chest mass (Chronic) CVA (cerebral vascular accident) (Acute) Atrial fibrillation with RVR (Acute 11/25/13) CVA (cerebral vascular accident) (Acute) Surgical History History of dilation and curettage (Resolved) History of hysterectomy (Resolved) History of tubal ligation (Resolved) Family History Other No pertinent family history in first degree relatives Social History Preferred Language: [place] Communication Ability: Effective Hospital Housekeeper Required: No Beliefs That Will Affect Care: None marital status: Current Living Situation: Snf Feels Safe at Home: Yes Smoking Status: Never smoker Second Hand Exposure: No ; Hx Alcohol Use: No Hx Substance Use: No Results & Data Vital Signs (Past 12 Hours) Vital Signs Temp Pulse Pulse Resp BP BP Pulse Ox 05/15/19 16:32 36.4 C L 64 18 148/78 H 96 05/15/19 15:08 36.5 C 68 18 140/92 91 05/15/19 12:15 65 05/15/19 12:01 36.6 C 79 18 162/71 H 94 05/15/19 07:03 36.5 C 68 18 140/95 93
[2019-05-16 05:45] LABS: Basophils # (auto) 0.04 K/uL (0-0.2); Basophils % (auto) 0.3 %; Eosinophils % (auto) 9.7 %; Hematocrit (blood only) 37.7 % (37-47); Hemoglobin 12.2 g/dL (12.0-16.0); Immature Granulocytes # (auto) 0.03 K/uL (0.00-0.02); Immature Granulocytes % (auto) 0.2 %; Lymphocytes # (auto) 3.34 K/uL (1.2-3.4); Lymphocytes % (auto) 26.9 %; Mean Corpuscular Hemoglobin 27.9 pg (25-34); Mean Corpuscular Hgb Conc 32.4 g/dL (32-36); Mean Corpuscular Volume 86.1 fL (80-100); Mean Platelet Volume 9.3 fL (7.4-10.4); Monocytes # (auto) 0.84 K/uL (0.11-0.59); Monocytes % (auto) 6.8 %; Neutrophils # (auto) 6.95 K/uL (1.4-6.5); Neutrophils % (auto) 56.1 %; Platelet Count 237 K/uL (130-400); RDW Coefficient of Variation 15.8 % (11.5-14.5); RDW Standard Deviation 50.2 fL (36.4-46.3); Red Blood Count 4.38 M/uL (4.2-5.4)
[2019-05-16] MEDS: LEVOTHYROXINE SODIUM 125 MCG TABLET PO SCH (05:54)
[2019-05-16 06:20] LABS: Albumin Level 2.9 gm/dl (3.4-5.0); BUN Creatinine Ratio 19.2 (10-20); Calcium 8.5 mg/dl (8.5-10.1); Creatinine Clr Calc Pharmacy 54.9 ml/min; Est GFR (African American) 92.1; Est GFR (Non-African American) 79.4; Potassium 3.6 mmol/L (3.5-5.1)
[2019-05-16 06:23] LABS: Albumin Globulin Ratio 0.8 (0.9-2); Bilirubin,Total 0.5 mg/dl (0.2-1); Globulin 3.7 gm/dl (2.5-4.0); Total Protein 6.6 gm/dl (6.4-8.2)
[2019-05-16] MEDS: DOCUSATE SODIUM/SENNA 50/8.6MG TAB PO SCH ×2 (08:03→22:02)
[2019-05-16] MEDS: METOPROLOL TARTRATE 25 MG TAB PO SCH ×2 (08:04→21:49)
[2019-05-16] MEDS: ATORVASTATIN 40 MG TAB PO SCH (08:06)
[2019-05-16] MEDS: AMIODARONE 200 MG TAB PO SCH (08:08)
[2019-05-16] MEDS: levETIRAcetam ORAL SOLN 100MG/ML PO SCH ×2 (08:08→21:48)
[2019-05-16] MEDS: PANTOprazole 40 MG TAB PO SCH (08:09)
[2019-05-16] MEDS: POLYETHYLENE (MIRALAX) 17 GM PACK PO SCH (08:10)
[2019-05-16] MEDS: cefTRIAXone SODIUM 1,000 MG in DEXTROSE 5% 50 ML IV SCH (08:21)
[2019-05-16] MEDS ORDERED: EMBELINE E CREAM 0.05% 15 GM EXT SCH (09:00)
--- NOTE | 2019-05-16 11:51 | Hospitalist Progress Note ---
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 no new findings (4) Proctitis: seen on CT no need for flagyl at this time, stopped plan for flex sigmoidoscopy tomorrow (5) UTI (urinary tract infection): > 30 WBC on UA urine culture growing enterococcus will continue on Rocephin for time being, follow up on sensitivities tomorrow Subjective patient stable today, she is sleepy, won't take her medications did not want to eat this morning at the bedside, he says that she often refuses food and medications at [facility] reviewed labs, Hb stable, actually up to 12 WBC is 12, urine culture growing Enterococcus, sensitivities pending reviewed GI note, plan for flex sigmoidoscopy tomorrow will likely not tolerate PO prep, may just need an enema updated family at the bedside Review of Systems Review of Systems: Unobtainable due to cognitive status Physical Exam Constitutional: WD/WN, vitals as above Eyes: PERRL, conjunctivae normal, anicteric sclerae ENMT: external ear and nose normal, oropharynx normal Neck: trachea midline, no thyromegaly Respiratory: normal respiratory effort, lungs clear to auscultation Cardiovascular: RRR, no murmur, no edema Gastrointestinal (Abdomen): normal bowel sounds, soft, nontender, no hepatosplenomegaly Musculoskeletal: no cyanosis or clubbing, extremities motor strength 5/5 Skin: no rashes, warm and dry Neurologic: patellar DTR's 2+ bilat, sensation intact and PERRL, EOMI, accommodation nl, no face palsy, no dysarthria Psychiatric: Orientation: alert, oriented to person and cooperative; + not oriented to place and + not oriented to time Lymphatic: no cervical or axillary lymphadenopathy Results & Data Vital Signs (Past 12 Hours) Vital Signs Temp Pulse Resp BP BP Pulse Ox 05/16/19 06:53 36.4 C L 68 18 128/73 91 05/16/19 05:00 72 169/73 H Laboratory Results Laboratory Results - last 24 hr 05/16/19 05/16/19 05:31 05:31 WBC 12.40 H RBC 4.38 Hgb 12.2 Hct 37.7 MCV 86.1 MCH 27.9 MCHC 32.4 RDW Std Deviation 50.2 H RDW Coeff of Jessy 15.8 H Plt Count 237 MPV 9.3 Immature Gran % (Auto) 0.2 Neut % (Auto) 56.1 Lymph % (Auto) 26.9 [place] % (Auto) 6.8 Eos % (Auto) 9.7 Baso % (Auto) 0.3 Immature Gran # (Auto) 0.03 H Neut # (Auto) 6.95 H Lymph # (Auto) 3.34 [place] # (Auto) 0.84 H Eos # (Auto) 1.20 H Baso # (Auto) 0.04 Sodium 142 Potassium 3.6 Chloride 112 H Carbon Dioxide 22 Anion Gap 8.0 BUN 13 Creatinine 0.66 Est Cr Clr Drug Dosing 54.9 Est GFR ( Amer) 92.1 Est GFR (Non-Af Amer) 79.4 BUN/Creatinine Ratio 19.2 Glucose 87 Calcium 8.5 Total Bilirubin 0.5 AST 20 ALT 15 Alkaline Phosphatase 141 H Total Protein 6.6 Albumin 2.9 L Globulin 3.7 Albumin/Globulin Ratio 0.8 L Microbiology 05/15/19 02:40 Urine,Clean Catch Urine Culture - Preliminary Enterococcus species Medications Administered Current Inpatient Medications Acetaminophen (Tylenol) 650 mg PO Q4H PRN PRN Reason: Pain or Fever Stop: 06/13/19 18:36 Al Hydrox/Mg Hydrox/Simethicone (Maalox) 15 ml PO Q4H PRN PRN Reason: Dyspepsia Stop: 06/13/19 18:36 Amiodarone HCl (Cordarone) 200 mg PO DAILY [facility] Stop: 06/14/19 08:59 Last Admin: 05/16/19 08:08 Dose: 200 mg Documented by: Atorvastatin Calcium (Lipitor) 40 mg PO DAILY [facility] Stop: 06/14/19 08:59 Last Admin: 05/16/19 08:06 Dose: 40 mg Documented by: Clobetasol Propionate (Clobetasol Propionate Oint) 1 appln EXT BID [facility] Stop: 06/15/19 08:59 Ceftriaxone Sodium 1,000 mg/ (Dextrose) 60 mls @ 120 mls/hr IV Q12H [facility]; Protocol Stop: 05/24/19 20:59 Last Infusion: 05/16/19 10:18 Dose: Infused Documented by: Levetiracetam (Keppra) 750 mg PO BID [facility] Stop: 06/13/19 20:59 Last Admin: 05/16/19 08:08 Dose: 750 mg Documented by: Levothyroxine Sodium (Synthroid) 125 mcg PO DAILYBB [facility] Stop: 06/14/19 06:29 Last Admin: 05/16/19 05:54 Dose: 125 mcg Documented by: Magnesium Hydroxide (Milk Of Magnesia) 30 ml PO Q12H PRN PRN Reason: Constipation Stop: 06/13/19 18:36 Metoprolol Tartrate (Lopressor) 12.5 mg PO BID [facility] Stop: 06/13/19 20:59 Last Admin: 05/16/19 08:04 Dose: 12.5 mg Documented by: Pantoprazole Sodium (Protonix) 40 mg PO QAM [facility] Stop: 06/15/19 08:59 Last Admin: 05/16/19 08:09 Dose: 40 mg Documented by: Polyethylene Glycol (Miralax Powder Packet) 17 gm PO DAILY [facility]; Protocol Stop: 06/13/19 20:59 Last Admin: 05/16/19 08:10 Dose: 17 gm Documented by: Senna/Docusate Sodium (Senokot S) 2 tab PO BID [facility] Stop: 06/13/19 20:59 Last Admin: 05/16/19 08:03 Dose: 2 tab Documented by: PG Care Time/CCT Total # of Minutes Spent Total Time Spent with Patient: Total time spent is greater than 50% in coordination of care (as documented) at patient's floor/unit and/or counseling patient: (1) Anemia Anemia type: unspecified type Qualified Code(s): D64.9 - Anemia, unspecified
[2019-05-16] MEDS: CLOBETASOL PROPIONATE 0.05% OINT 15 GM TUBE EXT SCH ×2 (12:53→21:47)
--- NOTE | 2019-05-16 12:58 | Gastroenterology Progress Note ---
Date of Service May 16, 2019 Subjective Events noted - pt without further bleeding, refusing meds. Sleeping, appears comfortable Abd: soft Labs show stable hgb A/P: Rectal bleeding, proctitis on CT - DDX = stercoral colitis, outlet bleeding, neoplasia. I had long d/w pt and son yesterday regarding the likelihood that bleeding will be self limited and possible causes of bleeding. wishes to proceed with sigmoidoscopy if possible to try to r/o neoplasia. and son understand that prep may be difficult and poor, that visualization may be incomplete, and that treatment options may be limited if advanced neoplasia is found; however, requests that an attempt be made. Will plan sigmoidoscopy tomorrow. As Dr. Meraz mentioned, pt not likely to tolerate oral prep; will have pt remain on clears today, give dulcolax x1 this afternoon, tap water enema this evening and again in am. If this is not successful, then would not pursue further attempts at csocpy. Results & Data Vital Signs (Past 12 Hours) Vital Signs Temp Pulse Resp BP BP Pulse Ox 05/16/19 06:53 36.4 C L 68 18 128/73 91 05/16/19 05:00 72 169/73 H
[2019-05-16] MEDS ORDERED: bisacodyL 5 MG TABEC PO ONE (13:01)
[2019-05-16] MEDS: NITROFURANTOIN MONOHYDRATE 100 MG CAP PO SCH ×2 (14:21→22:03)
[2019-05-16] MEDS: EMBELINE E CREAM 0.05% 15 GM EXT SCH (22:38)
[2019-05-17] MEDS: LEVOTHYROXINE SODIUM 125 MCG TABLET PO SCH (05:53)
[2019-05-17 06:34] LABS: Basophils # (auto) 0.02 K/uL (0-0.2); Basophils % (auto) 0.2 %; Eosinophils # (auto) 1.21 K/uL (0-0.5); Eosinophils % (auto) 10.6 %; Hemoglobin 12.6 g/dL (12.0-16.0); Immature Granulocytes # (auto) 0.04 K/uL (0.00-0.02); Immature Granulocytes % (auto) 0.4 %; Lymphocytes # (auto) 3.11 K/uL (1.2-3.4); Lymphocytes % (auto) 27.3 %; Mean Corpuscular Hemoglobin 27.6 pg (25-34); Mean Corpuscular Hgb Conc 31.5 g/dL (32-36); Mean Corpuscular Volume 87.5 fL (80-100); Mean Platelet Volume 9.4 fL (7.4-10.4); Monocytes # (auto) 0.81 K/uL (0.11-0.59); Monocytes % (auto) 7.1 %; Neutrophils # (auto) 6.21 K/uL (1.4-6.5); Neutrophils % (auto) 54.4 %; Platelet Count 242 K/uL (130-400); RDW Coefficient of Variation 16.2 % (11.5-14.5); RDW Standard Deviation 51.6 fL (36.4-46.3); Red Blood Count 4.57 M/uL (4.2-5.4)
[2019-05-17 07:09] LABS: BUN Creatinine Ratio 21.6 (10-20); Calcium 8.8 mg/dl (8.5-10.1); Creatinine Clr Calc Pharmacy 59.4 ml/min; Est GFR (African American) 94.5; Est GFR (Non-African American) 81.5; Potassium 3.6 mmol/L (3.5-5.1)
[2019-05-17 07:12] LABS: Albumin Globulin Ratio 0.8 (0.9-2); Bilirubin,Total 0.4 mg/dl (0.2-1); Globulin 3.7 gm/dl (2.5-4.0); Total Protein 6.7 gm/dl (6.4-8.2)
[2019-05-17] MEDS: levETIRAcetam ORAL SOLN 100MG/ML PO SCH ×2 (08:05→20:22)
[2019-05-17] MEDS: CLOBETASOL PROPIONATE 0.05% OINT 15 GM TUBE EXT SCH ×2 (08:05→20:24)
[2019-05-17] MEDS: METOPROLOL TARTRATE 25 MG TAB PO SCH ×2 (08:05→20:20)
--- NOTE | 2019-05-17 08:09 | Gastroenterology Progress Note ---
Date of Service May 17, 2019 Assessment & Plan (1) GI bleed: 88 year old female w/ history of dyslipidemia, constipation, GERD, CAD, prior stroke, bedbound at baseline who presents w/ concern for lower GI bleed from home w/ proctitis on CT, NPO for flex-sig this AM NPO Flex-Sig Thank you for allowing us to participate in the care of this patient. Please call with any acute changes, questions or concerns. Please see addendum below with additional recommendation from my supervising physician. Present on Admission?: Yes Subjective Pt was seen and evaluated, chart reviewed. Nursing at bedside No family at bedside She has just received enema this AM Return was liquid, brown stool. No abd pain No CP, SOB Review of Systems Constitutional: no fever and no chills Respiratory: no dyspnea Cardiovascular: no chest pain Gastrointestinal: + change in bowel habits and + diarrhea/loose stools; no abdominal pain and no vomiting Physical Exam Constitutional: no acute distress Respiratory: normal respiratory effort Cardiovascular: Rate/Rhythm: regular rate Gastrointestinal (Abdomen): Inspection/Auscultation: normal bowel sounds Percussion/Palpation: abdomen soft Results & Data Vital Signs (Past 12 Hours) Vital Signs Temp Pulse Resp BP Pulse Ox 05/17/19 07:26 36.9 C 71 18 197/63 H 96 05/16/19 22:57 36.3 C L 81 94 05/16/19 21:56 70 153/82 H
[2019-05-17] MEDS ORDERED: LIDOCAINE HCL 2% 2 ML VIAL/AMP(20MG/ML) INFIL ONE (09:53)
[2019-05-17] MEDS ORDERED: PROPOFOL IV EMULSION 10 MG/ML 20 ML VIAL IV ONE (09:53)
--- NOTE | 2019-05-17 10:25 | Anesthesiology Consultation ---
Date of Service May 17, 2019 Assessment & Plan (1) Encounter for pre-operative examination: Chart Review Chart Review: Acceptable Risk for Surgery and Patient NOT seen in Pre Admission Testing Consults Requested none ASA ASA3 Proposed Anesthesia Anesthesia Type: MAC History Surgery Operation Date: 05/17/19 08:30 Proposed Procedures p Colonoscopy Dr. Evonne Douglass M.D. Height/Weight Height: 5 ft 3 in Weight: 66.1 kg Allergies Allergy/AdvReac Type Severity Reaction Status Date / Time Penicillins Allergy Mild RASH Verified 05/14/19 13:59 Medications Home Medications Medication Instructions Recorded Confirmed Last Taken amiodarone [Pacerone] 200 mg PO DAILY 05/14/19 05/14/19 Unknown atorvastatin [Lipitor] 40 mg PO DAILY 05/14/19 05/14/19 Unknown clobetasol-emollient 1 applic TOPICAL BID 05/14/19 05/14/19 Unknown levetiracetam [Keppra] 750 mg PO BID 05/14/19 05/14/19 Unknown levothyroxine [Synthroid] 125 mcg PO DAILY 05/14/19 05/14/19 Unknown metoprolol tartrate 12.5 mg PO BID 05/14/19 05/14/19 Unknown omeprazole 40 mg PO BID 05/14/19 05/14/19 Unknown sennosides-docusate sodium 2 tab PO BID 05/14/19 05/14/19 Unknown [Senna-S] Active Medications Generic Name Dose Route Start Last Admin Trade Name Freq PRN Reason Stop Dose Admin Amiodarone HCl 200 mg 05/15/19 09:00 05/16/19 08:08 Cordarone PO 06/14/19 08:59 200 mg DAILY JAMEL Administration Atorvastatin Calcium 40 mg 05/15/19 09:00 05/16/19 08:06 Lipitor PO 06/14/19 08:59 40 mg DAILY JAMEL Administration Clobetasol Propionate 1 appln 05/16/19 11:00 05/17/19 08:05 Clobetasol Propionate Oint EXT 06/15/19 08:59 1 appln BID JAMEL Administration Levetiracetam 750 mg 05/14/19 21:00 05/17/19 08:05 Keppra PO 06/13/19 20:59 750 mg BID JAMEL Administration Levothyroxine Sodium 125 mcg 05/15/19 06:30 05/17/19 05:53 Synthroid PO 06/14/19 06:29 125 mcg DAILYBB JAMEL Administration Metoprolol Tartrate 12.5 mg 05/14/19 21:00 05/17/19 08:05 Lopressor PO 06/13/19 20:59 12.5 mg BID JAMEL Administration Nitrofurantoin Macrocrystals 100 mg 05/16/19 12:30 05/16/19 22:03 Macrobid PO 05/21/19 12:29 100 mg BID JAMEL Administration Protocol Pantoprazole Sodium 40 mg 05/16/19 09:00 05/16/19 08:09 Protonix PO 06/15/19 08:59 40 mg QAM JAMEL Administration Polyethylene Glycol 17 gm 05/14/19 21:00 05/16/19 08:10 Miralax Powder Packet PO 06/13/19 20:59 17 gm DAILY JAMEL Administration Protocol Senna/Docusate Sodium 2 tab 05/14/19 21:00 05/16/19 22:02 Senokot S PO 06/13/19 20:59 2 tab BID JAMEL Administration NPO Date Last Intake of Fluids: 05/17/19 Time Last Intake of Fluids: 00:00 Last Intake of Fluids Comment: NPO at midnight Last Intake of Solids Comment: Unknown, per floor nurse pt has been NPO Past Medical History Medical History Multiple sclerosis (Chronic) TIA (transient ischemic attack) (Chronic) Cerebral vascular disease (Chronic) Chest mass (Chronic) CVA (cerebral vascular accident) (Acute) Atrial fibrillation with RVR (Acute 11/25/13) CVA (cerebral vascular accident) (Acute) Past Family History Family History Other No pertinent family history in first degree relatives Past Surgical History Surgical History History of dilation and curettage (Resolved) History of hysterectomy (Resolved) History of tubal ligation (Resolved) Social History Smoking Status: Never smoker Do You Dip or Chew Tobacco: No Hx Alcohol Use: No Hx Substance Use: No Physical Exam Vital Signs Last Vital Signs Temp 36.4 C L 05/17/19 09:56 Pulse 59 L 05/17/19 09:56 Resp 16 05/17/19 09:56 BP 165/69 H 05/17/19 09:56 Pulse Ox 99 05/17/19 09:56 Testing Laboratory Results 05/17/19 06:13 05/17/19 06:13 PT 10.5 Seconds (9.0-12.0) 05/14/19 12:29 INR 1.0 (0.9-1.1) 05/14/19 12:29 APTT 23.9 Seconds (21.0-31.0) 05/14/19 12:29 Hemoglobin A1c 5.4 % (4.5-5.6) 05/15/19 06:09 Urine Color Yellow 05/15/19 02:40 Urine Appearance Cloudy (Clear) A 05/15/19 02:40 Urine pH 6.0 (4.5-7.5) 05/15/19 02:40 Ur Specific [place] > 1.045 (1.000-1.030) H 05/15/19 02:40 Urine Protein Negative (Negative) 05/15/19 02:40 Urine Glucose (UA) Negative (Negative) 05/15/19 02:40 Urine Ketones Negative (Negative) 05/15/19 02:40 Urine Nitrite Negative (Negative) 05/15/19 02:40 Ur Leukocyte Esterase 2+ (Negative) H 05/15/19 02:40 Urine WBC (Auto) >30 /hpf (0-5) H 05/15/19 02:40 Urine RBC (Auto) 5-10 /hpf (0-4) H 05/15/19 02:40 U Hyaline Cast (Auto) 1-5 /lpf (0-5) 05/15/19 02:40 U Epithel Cells (Auto) >30 /lpf (0-5) H 05/15/19 02:40 Urine Bacteria (Auto) 3+ (Negative) H 05/15/19 02:40 Blood Type O Negative 05/14/19 12:29 Antibody Screen NEGATIVE 05/14/19 12:29 05/15/19 02:40 Urine Culture - Preliminary Urine,Clean Catch Enterococcus faecalis
--- NOTE | 2019-05-17 10:38 | GI REPORT ---
Patient Name: Kirtsin Schmid Procedure Date: 05/17/2019 10:17 AM Date of : 1930 Admit Type: Inpatient Age: 88 Gender: Female Attending MD: Pascale Douglass M.d. Procedure: Flexible Sigmoidoscopy Providers: Pascale Douglass M.d. Referring MD: Garret Ansari M.d. Indications: Hematochezia Medicines: Medications per anesthesia record Complications: No immediate complications. Estimated Blood Loss: Estimated blood loss was minimal. Procedure: Pre-Anesthesia Assessment: - Patient identification and proposed procedure were verified prior to the procedure by the physician, the nurse and the anesthesiologist. The procedure was verified in the pre-procedure area. - Prior to the procedure, a History and Physical was performed, and patient medications, allergies and sensitivities were reviewed. The patient's tolerance of previous anesthesia was reviewed. - The risks and benefits of the procedure and the sedation options and risks were discussed with the patient. All questions were answered and informed consent was obtained. After obtaining informed consent, the endoscope was passed under direct vision. Throughout the procedure, the patient's blood pressure, pulse, and oxygen saturations were monitored continuously. The Endoscope was introduced through the anus and advanced to the descending colon. The flexible sigmoidoscopy was accomplished without difficulty. The patient tolerated the procedure well. The quality of the bowel preparation was poor. Findings: The perianal and digital rectal examinations were normal. The examined colon appeared normal - this was to the distal descending colon. Impression: - Preparation of the colon was poor - solid stool was noted. - The examined colon appeared normal to the distal descending colon. Recommendation: - Return to floor when ready. Valerie Aguilar M.d. 05/17/2019 10:37:52 AM This report has been signed electronically. Note Initiated On: 05/17/2019 10:17 AM Number of Addenda: 0 I attest to the content of the Intraoperative Record and orders documented therein, exceptions below {[id number]}
[2019-05-17] MEDS ORDERED: ePHEDrine sulfate 50 MG/ML SYR ONE (10:39)
[2019-05-17] MEDS: POLYETHYLENE (MIRALAX) 17 GM PACK PO SCH (11:21)
[2019-05-17] MEDS: DOCUSATE SODIUM/SENNA 50/8.6MG TAB PO SCH ×2 (11:21→20:27)
[2019-05-17] MEDS ORDERED: hydrOXYzine HCl 10 MG TAB PO PRN (12:06)
[2019-05-17] MEDS: AMIODARONE 200 MG TAB PO SCH (12:43)
[2019-05-17] MEDS: PANTOprazole 40 MG TAB PO SCH (12:44)
[2019-05-17] MEDS: NITROFURANTOIN MONOHYDRATE 100 MG CAP PO SCH ×2 (12:44→20:21)
[2019-05-17] MEDS: ATORVASTATIN 40 MG TAB PO SCH (12:44)
--- NOTE | 2019-05-17 12:59 | Hospitalist Progress Note ---
Date of Service May 17, 2019 Assessment & Plan (1) GI bleed: - Concern for GI bleed in setting of hematochezia. - H/H has remained stable, will monitor daily. - GI consulted, appreciate input. S/p flex sig today, has sigmoid diverticulitis and proctitis noted. - CLD, advance as tolerated. - Pt. is not a candidate for colonoscopy due to multiple co-morbidities. (2) Anemia: - H/H has remained stable. - Monitor daily. (3) Proctitis: - Noted on CT scan and flex sigmoidoscopy. - No indication for abx coverage at this time. - Senna S BID with Miralax daily scheduled. (4) Rash: - Has had erythematous maculopapular rash under both breasts, on both arms (R>L) -- is very pruritic, possibly related to scabies. No evidence of secondary bacterial cellulitis on exam. - Did not respond to topical steroid treatment at [facility]. - S/p Permethrin on 05/14; likely has post scabies pruritus, may last up to 2-4 weeks. - Symptomatic treatment: Nafisa 60 mg BID; Vistaril 10 mg q6hr prn. - Clobetasol ointment BID scheduled. - Contact precautions in setting of presumed scabies. (5) UTI (urinary tract infection): - UC positive for E. faecalis and Gamma strep. - Started Macrobid per sensitivities. (6) Atrial fibrillation with RVR: - Paroxysmal; in sinus rhythm on admission EKG. - Continue Amiodarone 200 mg daily and Metoprolol 12.5 mg BID. - Not currently on anticoagulation therapy. (7) CVA (cerebral vascular accident): - Residual left sided weakness; is bed bound. - Continue statin as prescribed. (8) HLD (hyperlipidemia): - Continue statin as prescribed. (9) CAD (coronary artery disease): - Continue beta vanessa, statin as prescribed. - No cardiac symptoms present at this time. (10) Hypothyroidism: - Continue Levothyroxine 125 mcg daily. - Will order TSH in the morning. (11) GERD (gastroesophageal reflux disease): - PPI daily. Dispo: Med/surg; discharge to [facility] on 05/18 pending improvement in pruritus. Subjective Pt. is at baseline -- she was lethargic this morning but woke up following flex sig procedure. Her was present at bedside, updated with plan of care and procedure results. Pt. has a rash under both breasts, on right arm/under arm and inner left arm. Rash has been very itchy, persisted over last few weeks. Did not respond to topical steroids at [facility]. Pt. did receive Permethrin treatment on 05/14/19 following admission, has not had any improvement in itching -- may be persistent symptoms following treatment. Plan for discharge tomorrow pending improvement in itching/symptoms. Had brown stool this morning, did have slight amount of blood noted but improving overall. Review of Systems Review of Systems: All systems reviewed & are unremarkable except as noted in HPI & below Constitutional: + fatigue and + weakness; no fever, no chills and no anorexia Respiratory: no cough, no dyspnea and no dyspnea on exertion Cardiovascular: no chest pain, no palpitations and no edema Gastrointestinal: no abdominal pain, no nausea, no constipation, no blood in stools and no melena Genitourinary: no difficulty urinating Musculoskeletal: no back pain and no joint pain Integumentary: + rash and + pruritus Physical Exam Physical Exam: General: Resting comfortably HEENT: NC/AT; PERRLA with EOMI; [place] conjunctiva, MMM. No erythema of posterior pharynx Neck: Supple and nontender Cardiac: RRR Lungs: CTA bilaterally Abdomen: Bowel normoactive X 4; Nontender to palpation Extremities: Warm. No edema present Neuro: No focal weakness; baseline dementia, is not alert and oriented to person or place. Skin: Erythematous maculopapular rash noted underneath breasts, inner left arm and right arm -- excorations noted from pruritus. Results & Data Vital Signs (Past 12 Hours) Vital Signs Temp Pulse Resp BP Pulse Ox 05/17/19 11:02 61 16 150/63 H 96 05/17/19 10:52 62 18 135/66 95 05/17/19 10:37 59 L 18 112/83 99 05/17/19 09:56 36.4 C L 59 L 16 165/69 H 99 05/17/19 07:26 36.9 C 71 18 197/63 H 96 Laboratory Results 05/17/19 05/17/19 Range/Units 06:13 06:13 WBC 11.40 H (4.8-10.8) K/uL RBC 4.57 (4.2-5.4) M/uL Hgb 12.6 (12.0-16.0) g/dL Hct 40.0 (37-47) % MCV 87.5 (80-100) fL MCH 27.6 (25-34) pg MCHC 31.5 L (32-36) g/dL RDW Std Deviation 51.6 H (36.4-46.3) fL RDW Coeff of Jessy 16.2 H (11.5-14.5) % Plt Count 242 (130-400) K/uL MPV 9.4 (7.4-10.4) fL Immature Gran % (Auto) 0.4 % Neut % (Auto) 54.4 % Lymph % (Auto) 27.3 % [place] % (Auto) 7.1 % Eos % (Auto) 10.6 % Baso % (Auto) 0.2 % Immature Gran # (Auto) 0.04 H (0.00-0.02) K/uL Neut # (Auto) 6.21 (1.4-6.5) K/uL Lymph # (Auto) 3.11 (1.2-3.4) K/uL [place] # (Auto) 0.81 H (0.11-0.59) K/uL Eos # (Auto) 1.21 H (0-0.5) K/uL Baso # (Auto) 0.02 (0-0.2) K/uL Sodium 145 (136-145) mmol/L Potassium 3.6 (3.5-5.1) mmol/L Chloride 113 H (98-107) mmol/L Carbon Dioxide 25 (21-32) mmol/L Anion Gap 7.0 (3-11) BUN 13 (7-18) mg/dl Creatinine 0.61 (0.6-1.2) mg/dl Est Cr Clr Drug Dosing 59.4 ml/min Est GFR ( Amer) 94.5 Est GFR (Non-Af Amer) 81.5 BUN/Creatinine Ratio 21.6 H (10-20) Glucose 77 (70-99) mg/dl Calcium 8.8 (8.5-10.1) mg/dl Total Bilirubin 0.4 (0.2-1) mg/dl AST 31 (15-37) U/L ALT 22 (12-78) U/L Alkaline Phosphatase 140 H (45-117) U/L Total Protein 6.7 (6.4-8.2) gm/dl Albumin 3.0 L (3.4-5.0) gm/dl Globulin 3.7 (2.5-4.0) gm/dl Albumin/Globulin Ratio 0.8 L (0.9-2) PG Care Time/CCT Total # of Minutes Spent Total Time Spent with Patient: Total time spent is greater than 50% in coordination of care (as documented) at patient's floor/unit and/or counseling patient: (1) Anemia Anemia type: unspecified type Qualified Code(s): D64.9 - Anemia, unspecified
[2019-05-17] MEDS ORDERED: DOCUSATE SODIUM/SENNA 50/8.6MG TAB PO SCH (13:20)
--- NOTE | 2019-05-17 13:58 | Anesthesiology Progress Note ---
Date of Service May 17, 2019 Anesthesia Post Procedure Vital Signs Vital Signs: Temp Pulse Resp BP BP Pulse Ox 05/17/19 11:02 61 16 150/63 H 96 05/17/19 10:52 62 18 135/66 95 05/17/19 10:37 59 L 18 112/83 99 05/17/19 09:56 36.4 C L 59 L 16 165/69 H 99 05/17/19 07:26 36.9 C 71 18 197/63 H 96 05/16/19 22:57 36.3 C L 81 94 05/16/19 21:56 70 153/82 H 05/16/19 15:12 36.9 C 67 20 112/79 93 Transfer of Care Handoff Completed per policy Notes Mental Status: alert / awake / arousable Patient Amnestic to Procedure: Yes Nausea / Vomiting: adequately controlled Pain: adequately controlled Airway Patency, RR, SpO2: stable & adequate BP & HR: stable & adequate Hydration State: stable & adequate Anesthetic Complications: no major complications apparent and Pt Satisfied with anesthetic care
[2019-05-17] MEDS: FEXOFENADINE 60 MG TAB PO SCH ×2 (15:10→20:22)
[2019-05-18 06:34] LABS: Hematocrit (blood only) 37.4 % (37-47); Hemoglobin 11.9 g/dL (12.0-16.0); Mean Corpuscular Hemoglobin 27.9 pg (25-34); Mean Corpuscular Hgb Conc 31.8 g/dL (32-36); Mean Corpuscular Volume 87.8 fL (80-100); Mean Platelet Volume 9.2 fL (7.4-10.4); Platelet Count 225 K/uL (130-400); RDW Coefficient of Variation 16.1 % (11.5-14.5); RDW Standard Deviation 51.6 fL (36.4-46.3); Red Blood Count 4.26 M/uL (4.2-5.4); White Blood Count 10.65 K/uL (4.8-10.8)
[2019-05-18] MEDS: LEVOTHYROXINE SODIUM 125 MCG TABLET PO SCH (06:49)
[2019-05-18 07:04] LABS: BUN Creatinine Ratio 27.2 (10-20); Calcium 9.1 mg/dl (8.5-10.1); Creatinine Clr Calc Pharmacy 54.9 ml/min; Est GFR (African American) 92.1; Est GFR (Non-African American) 79.4; Potassium 3.3 mmol/L (3.5-5.1)
[2019-05-18 07:15] LABS: Thyroid Stimulating Hormone 2.59 uIu/ml (0.300-4.500)
[2019-05-18] MEDS: FEXOFENADINE 60 MG TAB PO SCH (07:59)
[2019-05-18] MEDS: AMIODARONE 200 MG TAB PO SCH (07:59)
[2019-05-18] MEDS: CLOBETASOL PROPIONATE 0.05% OINT 15 GM TUBE EXT SCH (07:59)
[2019-05-18] MEDS ORDERED: POTASSIUM CHLORIDE 20 MEQ TABCR PO ONE ×2 (08:00→08:30)
[2019-05-18] MEDS: levETIRAcetam ORAL SOLN 100MG/ML PO SCH (08:00)
[2019-05-18] MEDS: ATORVASTATIN 40 MG TAB PO SCH (08:00)
[2019-05-18] MEDS: METOPROLOL TARTRATE 25 MG TAB PO SCH (08:00)
[2019-05-18] MEDS: PANTOprazole 40 MG TAB PO SCH (08:01)
[2019-05-18] MEDS: NITROFURANTOIN MONOHYDRATE 100 MG CAP PO SCH (08:01)
[2019-05-18] MEDS: POLYETHYLENE (MIRALAX) 17 GM PACK PO SCH (08:02)
[2019-05-18] MEDS: DOCUSATE SODIUM/SENNA 50/8.6MG TAB PO SCH (11:37)
--- NOTE | 2019-05-18 13:48 | Discharge Summary ---
Date of Service May 18, 2019 Admission HPI Per Admitting Provider Patient is a 88 years old female with past medical history of hypothyroidism, high hyperlipidemia, constipation, GERD, coronary artery disease, stroke, bedbound states that Mini who was brought to this morning with a concern that she has melena in her diaper for couple of days. Patient is in her usual state of health. 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 In the review of system has been said that patient had a dark stool for several days and that has been ongoing. He said that he did not see it himself but that was reported as small to moderate amount of stool on her diaper. Patient also complains of intermittent itch and lesions that he she has all over her body more on the right side. It does not appear to be in the dermatome distribution. Patient also has some lesions located on her left side and per her it migrates and it was first on her lower extremities and now is pretty much spread all over. Other than that patient denies fever, headache, chest pain, shortness of breath, abdominal pain, frequency, urgency, hemoptysis, hematuria, dysuria. Urine analysis pending. BNP pending. Labs are reviewed: WBC 13.28, hemoglobin 11.8, hematocrit 37.3, platelets 234, PT 10.5, INR 1 APTT 23.9. Sodium 145 potassium 3.8, chloride 113, BUN 21 creatinine 0.61, GFR 81.5, AST 11, ALT 13, alkaline phosphatase 146. CT of the abdomen and pelvis shows a mild proctitis. Advanced colonic diverticulosis without clear CT evidence of acute diverticulitis. 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 This was dating back in 2011 and remains pathologically indeterminant. Cardiomegaly. Moderate constipation no bowel obstruction is seen. There are numerous bladder diverticula. Decision was made to admit patient to PCU on telemetry for GI bleed Dr. Sinha it consultant is going to see the patient in the morning. Admission Exam Per Admitting Provider Constitutional: WD/WN, vitals as above well developed and + frail appearing Eyes: PERRL, conjunctivae normal, anicteric sclerae ENMT: external ear and nose normal, oropharynx normal Neck: trachea midline, no thyromegaly Respiratory: normal respiratory effort, lungs clear to auscultation Cardiovascular: RRR, no murmur, no edema Vessels: dorsalis pedis pulses present Extremities: + pedal edema Gastrointestinal (Abdomen): normal bowel sounds, soft, nontender, no hepatosplenomegaly Musculoskeletal: no cyanosis or clubbing, extremities motor strength 5/5 Left-sided weakness and face droop. Skin: Numerous skin lesions, papule as in different stages of healing very itchy. It could be either insect bite or scabies, fleabites. Neurologic: Left-sided weakness due to the stroke and paralysis Psychiatric: A+Ox3, euthymic affect Lymphatic: no cervical or axillary lymphadenopathy Principal Diagnosis Melena, Rash, UTI Discharge Exam General: Resting comfortably HEENT: NC/AT; PERRLA with EOMI; [place] conjunctiva, MMM. No erythema of posterior pharynx Neck: Supple and nontender Cardiac: RRR Lungs: CTA bilaterally Abdomen: Bowel normoactive X 4; Nontender to palpation Extremities: Warm. No edema present Neuro: No focal weakness; baseline dementia. Skin: Erythematous maculopapular rash noted underneath breasts, inner left arm and right arm - less erythematous on exam, is not pruritic. Discharge Data Allergies Allergy/AdvReac Type Severity Reaction Status Date / Time Penicillins Allergy Mild RASH Verified 05/14/19 13:59 Consultations 05/14/19 14:31 ED Decision to Admit Stat 05/14/19 18:37 Consult Gastroenterology Routine 05/17/19 12:06 Consult Case Management - Discharge Planning Routine Procedures Performed Operation Date: 05/17/19 08:30 Actual Procedures p Flexible Sigmoidoscopy - Pascale Douglass M.D. Ordered Studies 05/14/19 13:07 CT abd pelvis IV con only Stat Hospital Course (1) GI bleed: Concern for GI bleed in setting of hematochezia. H/H has remained stable. GI consulted, appreciate input. S/p flex sig on 05/17, has sigmoid diverticulitis and proctitis noted. Tolerating regular diet prior to discharge. Pt. is not a candidate for colonoscopy due to multiple co-morbidities. (2) Anemia: H/H has remained stable. (3) Proctitis: Noted on CT scan and flex sigmoidoscopy. No indication for abx coverage at this time. Senna S BID with Miralax daily scheduled. (4) Rash: Has erythematous maculopapular rash under both breasts, on both arms (R>L) -- was very pruritic, possibly related to scabies. No evidence of secondary bacterial cellulitis on exam. Did not respond to topical steroid treatment at [facility]. S/p Permethrin on 05/14; likely has post scabies pruritus, may last up to 2-4 weeks. Symptomatic treatment: Nafisa 60 mg BID; Vistaril 10 mg q6hr prn - did have improvement in symptoms after starting Nafisa BID. Recommend continuing this medication. Clobetasol ointment BID scheduled. Contact precautions in setting of presumed scabies. (5) UTI (urinary tract infection): UC positive for E. faecalis and Gamma strep. Will need to complete 5 day course of Macrobid per sensitivities. (6) Atrial fibrillation with RVR: Paroxysmal. Continued Amiodarone 200 mg daily and Metoprolol 12.5 mg BID. Not currently on anticoagulation therapy. 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 Continued statin as prescribed. (8) HLD (hyperlipidemia): Continued statin as prescribed. (9) CAD (coronary artery disease): Continued beta vanessa, statin as prescribed. No cardiac symptoms present at this time. (10) Hypothyroidism: Continued Levothyroxine 125 mcg daily. TSH was 2.59. (11) GERD (gastroesophageal reflux disease): PPI daily. Discharged to [facility] on 05/18/19. Total Time Total Time Spent Total Time Spent (In Minutes): >30 minutes Total Time Includes: Examination of the Patient, Discharge Planning, Medication Reconciliation, Communication With Other Providers and Other Discharge Plan Discharge Items Patient Disposition: Transfer Longterm Fac Reason For Visit: GI BLEED Discharge Diagnosis: Melena, Rash, UTI Activity: As commented below Non-emergency contact: Primary Care Provider Call non-emergency contact if: you have any medication questions, your symptoms worsen, your pain is not controlled, your pain is worsening, your pain is unusual for you, your pain is concerning for you and you have a fever Follow-up/Referrals: Medina Morse at [facility] [Primary Care Provider] - Diet: Heart Healthy Diet Texture: Dental soft (bite-sized) Addtl Attending Provider Instructions: 1. Blood in stools * Flexible sigmoidoscopy was negative for acute bleeding. * Pt. is not a candidate for colonoscopy due to multiple medical co-morbidities. * Please take Protonix 40 mg daily to prevent upper GI bleed. * Please monitor for worsening symptoms; consider hemoglobin/hematocrit if necessary. 2. Urinary Tract Infection * Please continue Macrobid twice daily to complete a 5 day course (end date: 05/21/19 in the morning) 3. Rash * Pt. was treated for scabies on 05/13 with topical permethrin cream. * She continues to have persistent itching post scabies treatment. * Please continue Nafisa twice daily scheduled with Hydroxyzine 10 mg every 6 hours as needed. * Consider repeat treatment for scabies if she does not have improvement in symptoms over the next 1-2 weeks. 4. Please schedule appointment with PCP in 1-2 weeks. Pending Studies at Discharge: No Stand-Alone Forms: My [facility] Medications and DC Order Prescriptions: Continued atorvastatin [Lipitor] 40 mg Tablet 40 mg PO DAILY RF: 0 amiodarone [Pacerone] 200 mg Tablet 200 mg PO DAILY RF: 0 sennosides-docusate sodium [Senna-S] 8.6-50 mg Tablet 2 tab PO BID RF: 0 omeprazole 40 mg Capsule,Delayed Release(Dr/Ec) 40 mg PO BID RF: 0 levothyroxine [Synthroid] 125 mcg Tablet 125 mcg PO DAILY RF: 0 clobetasol-emollient 0.05 % cream 1 applic topical BID RF: 0 levetiracetam [Keppra] 100 mg/mL Solution 750 mg PO BID RF: 0 metoprolol tartrate 25 mg Tablet 12.5 mg PO BID RF: 0 Discharge Orders: Discharge Order (Routine); Ordered 05/18/19 Ordered By: Danisha Hayward Admission Data Admit Date/Time: 05/17/19 09:59 Attending Provider: Garret Ansari Admit Provider: Jeannie Romo Primary Care Provider: Medina Morse [facility] Other Providers: Jeannie Romo ; Omari Sinha Other Interventions: Discharge Summary Assessment (RN) Last Done: 05/18/19 10:49 DC Date/Time DO NOT enter until pt leaves facility: 05/18/19 14:13 Supervising Physician Co-Signing Physician Notes During my face to face encounter, I performed a physical examination and obtained a history of her hospital course. I discussed discharge plan and answered any questions the patient had. I reviewed above note and agree with it. WILL RECOMMEND PATIENT FOLLOWUP WITH PCP And recommend that patient rechecks her hemoglobin at next visit.
--- NOTE | 2019-05-20 16:16 | Coding Query ---
CODING QUERY To promote full compliance with coding requirements relating to patient care, provider participation is requested in all cases of online retailer uncertainty. Please assist us with the question(s) below: Coding Question(s): Patient admitted with melena. Flexible sigmoidoscopy revealed sigmoid diverticulosis and proctitis. Please document, if known or suspected, the etiology of the GI bleed. Thanks for your help! Mp Johnson [facility] Physician's Response(s): Unknown etiology of lower GI bleed. Principal Diagnosis: "that condition established after study, to be chiefly responsible for occasioning the admission of the patient to the hospital for care." Co-Existing Principal Diagnosis: "when two or more diagnoses equally meet the criteria for principal diagnosis as determined by the circumstances of admission, diagnostic work up, and/or therapy provided, and the Alphabetic Index, Tabular List, or another coding guideline does not provide sequencing direction, any one of the diagnoses may be sequenced first." "When the physician has documented what appears to be a current diagnosis in the body of the record, but has not included the diagnosis in the final diagnostic statement, the physician should be asked whether the diagnosis should be added." (Source Coding [facility] 2 QTR90. p3-4) RUMA
== END 2019-05-18 14:13 | DRG 378 ==
LOC: ED 11:50 → 2E 11:50 → SUATTDRO 16:46 → 2E 17:34 → 4W 05-15 14:34

== ENCOUNTER 2020-07-07 12:00 | Inpatient (IN) ==
--- NOTE | 2020-07-07 12:07 | Emergency Department Note ---
Impression & Plan Abscess of buttock, right, Acute UTI, Dehydration ED Provider Note NAME: CLAUDIO NELSON AGE: 89 SEX: F : 1930 ARRIVES VIA: Ambulance INFORMANT: Patient, ED PROVIDER(S): Thiago Blevins MD Chief Complaint: Referral for possible buttock abscess HPI: History is limited due to the patient's nonverbal state. Patient does present from [facility] due to concern for a wound of the right buttock. History is otherwise limited as the patient is nonverbal at baseline. No reported fevers or chills with the patient does have a pending Covid test currently. No other additional reports per the outpatient facility at this time. ROS: Unobtainable secondary to patient's nonverbal state. Past medical history: See below Surgical history: See below Social history: See below Physical Exam: GENERAL: NAD, non-toxic. EYE EXAM: Normal conjunctiva. PERRL, no anisocoria and EOM's grossly intact w/o pain. NECK: Supple, no nuchal rigidity, no adenopathy, non-tender. No signs of meningismus. LUNGS: Clear to auscultation. Normal chest wall mechanics. HEART: NSR, no MRG. ABDOMEN: Abdomen soft, non-tender, normo-active bowel sounds, no masses, no rebound or guarding. BACK: No CVA TTP. SKIN: 5 x 5 area of erythema over the inferior medial portion of right buttock with centralized area of slight fluctuance with purulent drainage. No obvious crepitus. UPPER EXTREMITIES: Upper extremities are grossly normal. LOWER EXTREMITIES: Grossly normal, no edema. NEURO EXAM: A&O x3, cranial nerves II-XII grossly intact, normal speech, moves all 4 extremities on command w/o issue. Differential diagnoses: Sepsis, UTI, pneumonia, metabolic, electrolyte abnormalities, cardiac sources, intracerebral event, toxicologic, neurologic, as well as other pathologies. Course: Patient was seen and evaluated the bedside. Full history physical exam was performed. EKG: Indication: Weakness Imaging Studies: Radiology results as stated below per my review in the radiologist's interpretation: CT pelvis w/IV con only HISTORY: 89 years-old Female R sided buttock abscess patient presents with reported gluteal abscess COMPARISON: CT abdomen and pelvis 05/14/2019 TECHNIQUE: Multiple axial CT images of the pelvis were obtained following the intravenous ministration of 94 mm Optiray 320 A dose lowering technique was used consistent with the principals of ROHINI. FINDINGS: Mixed plaque of the aorta and iliac arteries. No aneurysm. No adenopathy. Extensive colonic diverticulosis without acute diverticulitis. There is mild wall thickening of the rectum and anus with mild perirectal stranding. Unremarkable uterus. Numerous urinary bladder diverticula with urinary bladder trabeculation. There is induration of the perianal tissues and inferior gluteal cleft cyst. Within the left inferomedial gluteal cleft there is a peripherally enhancing 1.2 x 0.8 cm fluid collection, image 202 of series 3. Adjacent subcutaneous emphysema is noted tracking superiorly towards the 5:00 position of the anus. No supralevator extension identified. No drainable fluid collection. Degenerative changes of the spine, pelvis and hips. IMPRESSION: 1. Induration of the perianal tissues and left greater than right inferior glut eal folds with a 1.2 x 0.8 cm perianal abscess of the 5:00 position perianal tissues with minimal subcutaneous emphysema noted extending superiorly towards the anus, possibly reflective of a developing sinus tract. There is associated perirectal and perianal inflammatory changes without supralevator extension of a sinus tract or fluid collection. 2. Extensive colonic diverticulosis without acute diverticulitis. ACT 112: Negative or not required by law. The above report was generated using voice recognition software. It may contain grammatical, syntax or spelling errors. Electronically signed by: Sid Starkey M.D. 07/07/2020 2:25 PM Dictated: 07/07/20 1419Transcribed: 07/07/20 1419 XR chest 1V portable HISTORY: 89 years-old Female SEPSIS . Acute sepsis COMPARISON: CT abdomen pelvis 05/14/2019, chest radiographs 11/28/2013, chest CT 06/05/2012 TECHNIQUE: Portable AP view of the chest cardiac silhouette is mildly enlarged. 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 Calcified plaque the thoracic aorta. No pneumothorax, large pleural effusion or overt pulmonary edema. Mild left lung base linear opacities favor atelectasis/scarring. No airspace consolidation typical for pneumonia. Degenerative changes of the shoulders and spine. IMPRESSION: 1. Mild left lung base opacities favor atelectasis/scarring. 2. 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 This has mildly increased in size from 2014 and has been present dating back to at least 2011. ACT 112: Negative or not required by law. The above report was generated using voice recognition software. It may contain grammatical, syntax or spelling errors. Electronically signed by: Sid Starkey M.D. 07/07/2020 1:11 PM Dictated: 07/07/20 1308Transcribed: 07/07/20 130 Cardiac monitoring: An order was placed for continuous cardiac monitoring. The monitor shows a rate of 68 with sinus rhythm. Procedures: Incision & Drainage performed by Dr. Blevins Indication: Abscess Location: Inferior medial aspect of right buttock Verbal consent was obtained to the who was present at the bedside after the risks and benefits were explained, including but not limited to bleeding, scarring, infection, pain, and bone/joint/nerve damage. At this time, the risks of the procedure are less than the risks of NOT performing the procedure. A time out was taken and the correct patient and site identified. The skin was prepped with betadine and a sterile field set. The abscess cavity was entered with an 18-gauge needle and subsequent manual expression of approximately 5 cc of purul ent drainage with copious irrigation was performed using sterile saline. The wound was explored for foreign bodies and none found. Debridement was not performed. Detailed wound care instructions and signs and symptoms of worsening infection reviewed with the patient. No complications and the patient tolerated the procedure well. MDM: Patient did present with concern for right buttock wound. Blood was obtained along with a culture and additional medications were ordered along with IV fluids. CT of the pelvis with contrast was also ordered given the location of the abscess. Patient does have a white count of 22 with a normal H&H and platelet count. The patient's kidney function does show some prerenal azotemia. The patient did receive IV fluids. The patient does have elevation in liver function testing. Troponin is not detectable. Urinalysis does show the possibility of infection. Patient was already ordered broad-spectrum antibiotics to the concern for the abscess. Patient did have a CT of the pelvis ordered. This did show an abscess with some surrounding stranding but no evidence of a obvious fluid collection. I did express additional fluid with an 18-gauge and manual expression. I did speak the on-call hospitalist. The patient was admitted to the medicine service [facility] under Dr. Rios. Past Med/Surg History Medical History Atrial fibrillation CAD (coronary artery disease) Diverticulosis GERD (gastroesophageal reflux disease) History of CVA with residual deficit HLD (hyperlipidemia) Hypothyroidism Multiple sclerosis TIA (transient ischemic attack) Vascular dementia Surgical History History of dilation and curettage History of hysterectomy History of tubal ligation Family History Mother Stroke Social History Smoking Status: Never smoker Second Hand Exposure: No; Do You Dip or Chew Tobacco: No; Tobacco Cessation Education Requested by Patient: No Hx Alcohol Use: No Hx Substance Use: No ( unknown.) Preferred Language: Luxembourger Communication Ability: Impaired Communication Ability Comment: dementia 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 Allergies Allergies Allergy/AdvReac Type Severity Reaction Status Date / Time Penicillins Allergy Mild RASH Verified 07/07/20 13:46 Home Meds Home Medications Medication Instructions Recorded Confirmed amiodarone [Pacerone] 200 mg PO QAM 05/14/19 07/07/20 atorvastatin [Lipitor] 40 mg PO HS 05/14/19 07/07/20 clobetasol-emollient 1 applic TOPICAL BID 05/14/19 07/07/20 levetiracetam [Keppra] 750 mg PO BID 05/14/19 07/07/20 levothyroxine [Synthroid] 125 mcg PO HS 05/14/19 07/07/20 metoprolol tartrate 12.5 mg PO BID 05/14/19 07/07/20 sennosides-docusate sodium 2 tab PO BID 05/14/19 07/07/20 [Senna-S] acetaminophen [Tylenol] 650 mg PO Q6H PRN 07/07/20 07/07/20 aspirin 162 mg PO QAM 07/07/20 07/07/20 nystatin 1 applic TOPICAL Q12 PRN 07/07/20 07/07/20 pantoprazole 40 mg PO QAM 07/07/20 07/07/20 sulfamethoxazole-trimethoprim 1 tab PO BID 07/07/20 07/07/20 Results & Data (ED) Vital Signs Vital Signs - 24 hr 07/07/20 12:13 07/07/20 12:15 07/07/20 12:45 Temperature 36.9 C Temperature Source Oral Pulse Rate 68 Pulse Rate from SpO2 Sensor Respiratory Rate 16 Respiratory Effort / Characteristics Non-Labored Spontaneous Non-Labored Spontaneous Blood Pressure 140/59 L Blood Pressure Mean 86 Pulse Oximetry 95 Oxygen Delivery Method Room Air Room Air Room Air Sepsis Recent Fever Within 48 Hours No Sepsis New/Unexplained Change in Mental Status No Sepsis Action Taken by Nursing No Action Required 07/07/20 12:53 07/07/20 13:15 07/07/20 13:45 Temperature Temperature Source Pulse Rate Pulse Rate from SpO2 Sensor Respiratory Rate Respiratory Effort / Characteristics Non-Labored Spontaneous Non-Labored Spontaneous Blood Pressure Blood Pressure Mean Pulse Oximetry 96 Oxygen Delivery Method Room Air Room Air Room Air Sepsis Recent Fever Within 48 Hours Sepsis New/Unexplained Change in Mental Status Sepsis Action Taken by Nursing 07/07/20 13:50 07/07/20 14:09 07/07/20 14:15 Temperature Temperature Source Pulse Rate 71 68 63 Pulse Rate from SpO2 Sensor 69 69 73 Respiratory Rate 18 16 21 Respiratory Effort / Characteristics Non-Labored Spontaneous Blood Pressure 137/99 106/60 Blood Pressure Mean 111 77 Pulse Oximetry 94 95 95 Oxygen Delivery Method Room Air Room Air Room Air Sepsis Recent Fever Within 48 Hours Sepsis New/Unexplained Change in Mental Status Sepsis Action Taken by Nursing 07/07/20 14:30 07/07/20 14:45 07/07/20 15:00 Temperature Temperature Source Pulse Rate 74 71 Pulse Rate from SpO2 Sensor 74 72 74 Respiratory Rate 17 12 18 Respiratory Effort / Characteristics Non-Labored Spontaneous Non-Labored Spontaneous Blood Pressure Blood Pressure Mean Pulse Oximetry 94 95 94 Oxygen Delivery Method Room Air Room Air Room Air Sepsis Recent Fever Within 48 Hours Sepsis New/Unexplained Change in Mental Status Sepsis Action Taken by Nursing 07/07/20 15:08 07/07/20 15:15 07/07/20 15:30 Temperature Temperature Source Pulse Rate 72 77 73 Pulse Rate from SpO2 Sensor 73 76 73 Respiratory Rate 21 14 14 Respiratory Effort / Characteristics Non-Labored Spontaneous Blood Pressure 132/62 Blood Pressure Mean 76 Pulse Oximetry 96 94 Oxygen Delivery Method Room Air Sepsis Recent Fever Within 48 Hours Sepsis New/Unexplained Change in Mental Status Sepsis Action Taken by Group Home Medications Current Medication List: was personally reviewed by me Laboratory Data Attestation: I reviewed the patient's lab results. Result diagrams: 07/07/20 12:31 07/07/20 12:31 Lab Results 07/07/20 07/07/20 07/07/20 Range/Units 12:31 12:31 12:31 WBC 22.62 H (4.8-10.8) K/uL RBC 4.51 (4.2-5.4) M/uL Hgb 13.3 (12.0-16.0) g/dL Hct 41.2 (37-47) % MCV 91.4 (80-100) fL MCH 29.5 (25-34) pg MCHC 32.3 (32-36) g/dL RDW Std Deviation 61.5 H (36.4-46.3) fL RDW Coeff of Jessy 18.5 H (11.5-14.5) % Plt Count 196 (130-400) K/uL MPV 9.9 (7.4-10.4) fL Immature Gran % (Auto) 0.4 % Neut % (Auto) 77.8 % Lymph % (Auto) 15.8 % Worth % (Auto) 5.6 % Eos % (Auto) 0.3 % Baso % (Auto) 0.1 % Neut # (Auto) 17.61 H (1.4-6.5) K/uL Lymph # (Auto) 3.58 H (1.2-3.4) K/uL Worth # (Auto) 1.26 H (0.11-0.59) K/uL Eos # (Auto) 0.07 (0-0.5) K/uL Baso # (Auto) 0.02 (0-0.2) K/uL Immature Gran # (Auto) 0.08 H (0.00-0.02) K/uL PT 11.7 (9.0-12.0) Seconds INR 1.1 (0.9-1.1) APTT 29.6 (21.0-31.0) Seconds PTT Ratio 1.1 Sodium (136-145) mmol/L Potassium (3.5-5.1) mmol/L Chloride (98-107) mmol/L Carbon Dioxide (21-32) mmol/L Anion Gap (3-11) BUN (7-18) mg/dl Creatinine (0.6-1.2) mg/dl Est Cr Clr Drug Dosing Est GFR ( Amer) Est GFR (Non-Af Amer) BUN/Creatinine Ratio (10-20) Glucose (70-99) mg/dl Lactate (0.4-2.0) mmol/L Calcium (8.5-10.1) mg/dl Magnesium (1.8-2.4) mg/dl Total Bilirubin (0.2-1) mg/dl AST (15-37) U/L ALT (12-78) U/L Alkaline Phosphatase (45-117) U/L Troponin I (0-0.045) ng/ml Total Protein (6.4-8.2) gm/dl Albumin (3.4-5.0) gm/dl Globulin (2.5-4.0) gm/dl Albumin/Globulin Ratio (0.9-2) Procalcitonin 0.27 (0-0.5) ng/ml Urine Color Urine Appearance (Clear) Urine pH (4.5-7.5) Ur Specific [place] (1.000-1.030) Urine Protein (Negative) Urine Glucose (UA) (Negative) Urine Ketones (Negative) Urine Blood (Negative) Urine Nitrite (Negative) Urine Bilirubin (Negative) Urine Urobilinogen (Negative) Ur Leukocyte Esterase (Negative) Urine WBC (Auto) (0-5) /hpf Urine RBC (Auto) (0-4) /hpf U Hyaline Cast (Auto) (0-5) /lpf U Epithel Cells (Auto) (0-5) /lpf Urine Bacteria (Auto) (Negative) Urine Yeast 07/07/20 07/07/20 07/07/20 Range/Units 12:31 12:35 15:04 WBC (4.8-10.8) K/uL RBC (4.2-5.4) M/uL Hgb (12.0-16.0) g/dL Hct (37-47) % MCV (80-100) fL MCH (25-34) pg MCHC (32-36) g/dL RDW Std Deviation (36.4-46.3) fL RDW Coeff of Jessy (11.5-14.5) % Plt Count (130-400) K/uL MPV (7.4-10.4) fL Immature Gran % (Auto) % Neut % (Auto) % Lymph % (Auto) % Worth % (Auto) % Eos % (Auto) % Baso % (Auto) % Neut # (Auto) (1.4-6.5) K/uL Lymph # (Auto) (1.2-3.4) K/uL Worth # (Auto) (0.11-0.59) K/uL Eos # (Auto) (0-0.5) K/uL Baso # (Auto) (0-0.2) K/uL Immature Gran # (Auto) (0.00-0.02) K/uL PT (9.0-12.0) Seconds INR (0.9-1.1) APTT (21.0-31.0) Seconds PTT Ratio Sodium 146 H (136-145) mmol/L Potassium 3.6 (3.5-5.1) mmol/L Chloride 113 H (98-107) mmol/L Carbon Dioxide 30 (21-32) mmol/L Anion Gap 3.0 (3-11) BUN 26 H (7-18) mg/dl Creatinine 1.01 (0.6-1.2) mg/dl Est Cr Clr Drug Dosing Not Reportable Est GFR ( Amer) 57.6 Est GFR (Non-Af Amer) 49.7 BUN/Creatinine Ratio 25.4 H (10-20) Glucose 81 (70-99) mg/dl Lactate 1.9 (0.4-2.0) mmol/L Calcium 9.1 (8.5-10.1) mg/dl Magnesium 2.7 H (1.8-2.4) mg/dl Total Bilirubin 0.8 (0.2-1) mg/dl AST 144 H (15-37) U/L ALT 130 H (12-78) U/L Alkaline Phosphatase 217 H (45-117) U/L Troponin I < 0.015 (0-0.045) ng/ml Total Protein 6.4 (6.4-8.2) gm/dl Albumin 1.9 L (3.4-5.0) gm/dl Globulin 4.5 H (2.5-4.0) gm/dl Albumin/Globulin Ratio 0.4 L (0.9-2) Procalcitonin (0-0.5) ng/ml Urine Color Dark Yellow Urine Appearance Turbid A (Clear) Urine pH 5.0 (4.5-7.5) Ur Specific [place] 1.023 (1.000-1.030) Urine Protein Trace H (Negative) Urine Glucose (UA) Negative (Negative) Urine Ketones Negative (Negative) Urine Blood Negative (Negative) Urine Nitrite Negative (Negative) Urine Bilirubin Negative (Negative) Urine Urobilinogen Negative (Negative) Ur Leukocyte Esterase 2+ H (Negative) Urine WBC (Auto) >30 H (0-5) /hpf Urine RBC (Auto) 0-4 (0-4) /hpf U Hyaline Cast (Auto) 10-30 H (0-5) /lpf U Epithel Cells (Auto) 0-5 (0-5) /lpf Urine Bacteria (Auto) 4+ H (Negative) Urine Yeast Not Reportable Administered Medications Discontinued Medications Sodium Chloride (Nss 1000ml) 1,000 mls @ 999 mls/hr IV .[id number] JAMEL Stop: 07/07/20 13:15 Last Infusion: 07/07/20 14:42 Dose: 0 mls/hr Documented by: [id number] Admin: 07/07/20 13:41 Dose: 999 mls/hr Documented by: [id number] Vancomycin HCl 1,750 mg/ (Sodium Chloride) 535 mls @ 200 mls/hr IV NOW ONE Stop: 07/07/20 14:43 Last Infusion: 07/07/20 18:53 Dose: 0 mls/hr Documented by: [id number] Admin: 07/07/20 15:07 Dose: 200 mls/hr Documented by: [id number] Cefepime HCl (Maxipime) 2,000 mg in 20 mls @ 5 mls/min IV NOW STA; Protocol Stop: 07/07/20 12:19 Last Admin: 07/07/20 13:35 Dose: 5 mls/min Documented by: [id number] Metronidazole (Flagyl) 500 mg in 100 mls @ 100 mls/hr IV NOW STA Stop: 07/07/20 13:15 Last Infusion: 07/07/20 14:38 Dose: 0 mls/hr Documented by: [id number] Admin: 07/07/20 13:38 Dose: 100 mls/hr Documented by: [id number] Ioversol (Ioversol 100ml) 94 ml IV ONCE ONE Stop: 07/07/20 14:01 Last Admin: 07/07/20 14:01 Dose: 94 ml Documented by: [id number] Discharge Plan Visit Data Chief Complaint: Rectal Pain Stated Complaint: RECTAL ABCESS ED Provider: Thiago Blevins Discharge Problem: Abscess of buttock, right, Acute UTI, Dehydration Patient Disposition: Admitted As Inpatient Discharge Instructions Interventions: ED Discharge Assessment Last Done: 07/07/20 17:10
[2020-07-07] MEDS ORDERED: VANCOMYCIN HCL 1,750 MG in SODIUM CHLORIDE 0.9% 500 ML IV ONE (12:14)
[2020-07-07] MEDS ORDERED: VANCOMYCIN CONSULT ACTIVE PRN ×2 (12:14→17:39)
[2020-07-07] MEDS ORDERED: SODIUM CHLORIDE 0.9% 1000ML 1,000 ML IV SCH (12:15)
[2020-07-07] MEDS ORDERED: metroNIDAZOLE 500 MG/100 ML BAG IV STA (12:16)
[2020-07-07] MEDS ORDERED: CEFEPIME 2,000 MG/20 ML VIAL IV STA (12:16)
[2020-07-07 12:53] LABS: Basophils # (auto) 0.02 K/uL (0-0.2); Basophils % (auto) 0.1 %; Eosinophils # (auto) 0.07 K/uL (0-0.5); Eosinophils % (auto) 0.3 %; Hematocrit (blood only) 41.2 % (37-47); Hemoglobin 13.3 g/dL (12.0-16.0); Immature Granulocytes # (auto) 0.08 K/uL (0.00-0.02); Immature Granulocytes % (auto) 0.4 %; Lymphocytes # (auto) 3.58 K/uL (1.2-3.4); Lymphocytes % (auto) 15.8 %; Mean Corpuscular Hemoglobin 29.5 pg (25-34); Mean Corpuscular Hgb Conc 32.3 g/dL (32-36); Mean Corpuscular Volume 91.4 fL (80-100); Mean Platelet Volume 9.9 fL (7.4-10.4); Monocytes # (auto) 1.26 K/uL (0.11-0.59); Monocytes % (auto) 5.6 %; Neutrophils # (auto) 17.61 K/uL (1.4-6.5); Neutrophils % (auto) 77.8 %; Platelet Count 196 K/uL (130-400); RDW Coefficient of Variation 18.5 % (11.5-14.5); RDW Standard Deviation 61.5 fL (36.4-46.3); Red Blood Count 4.51 M/uL (4.2-5.4); White Blood Count 22.62 K/uL (4.8-10.8)
[2020-07-07 13:02] LABS: INR 1.1 (0.9-1.1); Partial Thromboplastin Ratio 1.1; Partial Thromboplastin Time 29.6 Seconds (21.0-31.0); Prothrombin Time 11.7 Seconds (9.0-12.0)
[2020-07-07 13:09] LABS: Alanine Aminotransferase 130 U/L (12-78); Albumin Level 1.9 gm/dl (3.4-5.0); Aspartate Aminotransferase 144 U/L (15-37); BUN Creatinine Ratio 25.4 (10-20); Blood Urea Nitrogen 26 mg/dl (7-18); Calcium 9.1 mg/dl (8.5-10.1); Carbon Dioxide 30 mmol/L (21-32); Chloride 113 mmol/L (98-107); Est GFR (African American) 57.6; Est GFR (Non-African American) 49.7; Glucose 81 mg/dl (70-99); Magnesium 2.7 mg/dl (1.8-2.4); Potassium 3.6 mmol/L (3.5-5.1); Sodium 146 mmol/L (136-145)
--- NOTE | 2020-07-07 13:13 | XRay Report ---
XR chest 1V portable HISTORY: 89 years-old Female SEPSIS . Acute sepsis COMPARISON: CT abdomen pelvis 05/14/2019, chest radiographs 11/28/2013, chest CT 06/05/2012 TECHNIQUE: Portable AP view of the chest cardiac silhouette is mildly enlarged. 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 Calcified plaque the thoracic aorta. No pneumothorax, large pleural effusion or overt pulmonary edema. Mild left lung base linear opacities favor atelectasis/scarring. No airspac e consolidation typical for pneumonia. Degenerative changes of the shoulders and spine. IMPRESSION: 1. Mild left lung base opacities favor atelectasis/scarring. 2. 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 This has mildly increased i n size from 2013 and has been present dating back to at least 2011. ACT 112: Negative or not required by law. The above report was generated using voice recognition software. It may contain grammatical, syntax o r spelling errors. Electronically signed by: Sid Starkey M.D. 07/07/2020 1:11 PM
[2020-07-07 13:14] LABS: Albumin Globulin Ratio 0.4 (0.9-2); Alkaline Phosphatase 217 U/L (45-117); Bilirubin,Total 0.8 mg/dl (0.2-1); Globulin 4.5 gm/dl (2.5-4.0); Total Protein 6.4 gm/dl (6.4-8.2); Troponin I < 0.015 ng/ml (0-0.045)
[2020-07-07] MEDS ORDERED: IOVERSOL 100ml IV ONE (14:00)
--- NOTE | 2020-07-07 14:26 | CT Scan Report ---
CT pelvis w/IV con only HISTORY: 89 years-old Female R sided buttock abscess patient presents with reported gluteal abscess COMPARISON: CT abdomen and pelvis 05/14/2019 TECHNIQUE: Multiple axial CT images of the pelvis were obtained following the intravenous ministratio n of 94 mm Optiray 320 A dose lowering technique was used consistent with the principals of ROHINI. FINDINGS: Mixed plaque of the aorta and iliac arteries. No aneurysm. No adenopathy. Extensive colonic diverticu losis without acute diverticulitis. There is mild wall thickening of the rectum and anus with mild pe rirectal stranding. Unremarkable uterus. Numerous urinary bladder diverticula with urinary bladder tr abeculation. There is induration of the perianal tissues and inferior gluteal cleft cyst. Within the left inferome dial gluteal cleft there is a peripherally enhancing 1.2 x 0.8 cm fluid collection, image 202 of seri es 3. Adjacent subcutaneous emphysema is noted tracking superiorly towards the 5:00 position of the a nus. No supralevator extension identified. No drainable fluid collection. Degenerative changes of the spine, pelvis and hips. IMPRESSION: 1. Induration of the perianal tissues and left greater than right inferior gluteal folds with a 1.2 x 0.8 cm perianal abscess of the 5:00 position perianal tissues with minimal subcutaneous emphysema no ana laura extending superiorly towards the anus, possibly reflective of a developing sinus tract. There is associated perirectal and perianal inflammatory changes without supralevator extension of a sinus tra ct or fluid collection. 2. Extensive colonic diverticulosis without acute diverticulitis. ACT 112: Negative or not required by law. The above report was generated using voice recognition software. It may contain grammatical, syntax o r spelling errors. Electronically signed by: Sid Starkey M.D. 07/07/2020 2:25 PM
--- NOTE | 2020-07-07 14:57 | History & Physical Report ---
Date of Service July 07, 2020 Assessment & Plan (1) Perianal abscess: This is a 89-year-old female who has significant past medical history of atrial fibrillation, history of right MCA CVA with left hemiparesis, multiple sclerosis, vascular dementia, history of seizure disorder, hypothyroidism, GERD who presents to ED secondary to buttock abscess x3 days. admit to med tele continue IV antibiotics vanco and meropenem wound culture and blood culture pending wound nurse consult turn/position Gen surg consulted monitor labs and renal function (2) Elevated transaminase level: AST 144, ALT 130, ALP 217 T bili 0.8, no abd pain prior LFTS in 04/2020 wnl hold statin, pt also on amiodarone repeat in a.m, consider US abd if no improvement or worsens (3) Acute worsening of stage 3 chronic kidney disease: baseline cr 0.6-0.7 received 1L of IVF in ED along with fluid from antibiotics will not give any further fluid this evening repeat in a.m. (4) Atrial fibrillation: rate and rhythm controlled on amiodarone and metoprolol not on anticoagulation (5) History of CVA with residual deficit: with Left hemiparesis on ASA/statin statin on hold 2/2 to elevated LFTS (6) Vascular dementia: mood stable no acute behavior pt mostly non verbal (7) Hypothyroidism: continue statin (8) HLD (hyperlipidemia): hold statin in setting of elevated LFTs (9) DVT prophylaxis: SQ Lovenox Disposition: admit to med tele Follow up: PCP at [facility], Dr. Harley Pt was seen and examined in collaboration with Dr. Rios, please see addendum History of Present Illness Chief Complaint: Buttock abscess x 3 days. Primary Care Provider: Mini Haney at [facility] This is a 89-year-old female who has significant past medical history of atrial fibrillation, history of right MCA CVA with left hemiparesis, multiple sclerosis, vascular dementia, history of seizure disorder, hypothyroidism, GERD who presents to ED secondary to buttock abscess x3 days. Patient does reside at [facility]. is at bedside. Patient was seen and evaluated on 07/04 [facility]. She was diagnosed with buttock cellulitis and started on Bactrim. Unfortunately abscess worsened in which she presented to ED today. She is nonverbal at baseline and denies most of history. Patient does not appear to complain of pain. He states he had something similar a couple years ago that required him to be hospitalized due to MRSA and he is wondering if she has the same thing. She is never anything like this in the past. He is not aware that she had fever or low blood pressure at jail. He is unsure how her oral intake has been over the last few days. In ED she was Covid screen and this was negative. Blood cultures and wound cultures were obtained. She was started on broad spectrum antibiotics and received IVF. History was obtained from ED provider and EPIC notes. Allergies Allergy/AdvReac Type Severity Reaction Status Date / Time Penicillins Allergy Mild RASH Verified 07/07/20 13:46 Home Medications Medication Instructions Recorded Confirmed Type amiodarone [Pacerone] 200 mg PO QAM 05/14/19 07/07/20 History atorvastatin [Lipitor] 40 mg PO HS 05/14/19 07/07/20 History clobetasol-emollient 1 applic TOPICAL BID 05/14/19 07/07/20 History levetiracetam [Keppra] 750 mg PO BID 05/14/19 07/07/20 History levothyroxine [Synthroid] 125 mcg PO HS 05/14/19 07/07/20 History metoprolol tartrate 12.5 mg PO BID 05/14/19 07/07/20 History sennosides-docusate sodium 2 tab PO BID 05/14/19 07/07/20 History [Senna-S] acetaminophen [Tylenol] 650 mg PO Q6H PRN 07/07/20 07/07/20 History aspirin 162 mg PO QAM 07/07/20 07/07/20 History nystatin 1 applic TOPICAL Q12 PRN 07/07/20 07/07/20 History pantoprazole 40 mg PO QAM 07/07/20 07/07/20 History sulfamethoxazole-trimethoprim 1 tab PO BID 07/07/20 07/07/20 History Past Med/Surg History Medical History Atrial fibrillation CAD (coronary artery disease) Diverticulosis GERD (gastroesophageal reflux disease) History of CVA with residual deficit HLD (hyperlipidemia) Hypothyroidism Multiple sclerosis TIA (transient ischemic attack) Vascular dementia Surgical History History of dilation and curettage History of hysterectomy History of tubal ligation Family History Mother Stroke Social History Smoking Status: Never smoker Second Hand Exposure: No; Do You Dip or Chew Tobacco: No; Tobacco Cessation Education Requested by Patient: No Hx Alcohol Use: No Hx Substance Use: No ( unknown.) Preferred Language: Malian Communication Ability: Impaired Communication Ability Comment: dementia 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 Review of Systems Review of Systems: Unobtainable due to cognitive status Physical Exam Physical Exam: Constitutional: Thin, Elderly F, lying in bed, responds to verbal stimuli, vitals as above, NAD, unable to communicate Head: Normocephalic, Atraumatic Eyes: PERRL, conjunctivae normal, anicteric sclerae ENMT: external ear and nose normal, oropharynx dry mucous membranes Neck: trachea midline, no thyromegaly normal visual inspection Respiratory: poor insp effort, lungs clear to auscultation, no wheeze, rales, rhonchi. no accessory muscle use Cardiovascular: RRR, no murmur, no edema Vessels: no JVD or carotid bruit Chest: normal inspection of chest Abdomen: normal bowel sounds, soft, nontender, no hepatosplenomegaly Musculoskeletal: no cyanosis or clubbing, extremities motor strength 5/5 Skin: no rashes, warm and dry normal turgor Neurologic: PERRL, EOMI, accommodation nl, no face palsy, no dysarthria CN's II-XI intact bilaterally and moves all extremities Psychiatric: A+Ox3, euthymic affect Lymphatic: no cervical or axillary lymphadenopathy :5x5 are of erythema l buttock with purulent foul smelling brown drainage Results & Data Results & Data ([facility]) Vital Signs (Past 12 Hours) Vital Signs Temp Pulse Resp BP Pulse Ox 07/07/20 14:45 71 12 95 07/07/20 14:30 74 17 94 07/07/20 14:15 63 21 95 07/07/20 14:09 68 16 106/60 95 07/07/20 13:50 71 18 137/99 94 07/07/20 12:53 96 07/07/20 12:13 36.9 C 68 16 140/59 L 95 Laboratory Results Short CBC 07/07/20 07/07/20 Range/Units 12:31 12:31 WBC 22.62 H (4.8-10.8) K/uL Hgb 13.3 (12.0-16.0) g/dL Hct 41.2 (37-47) % Plt Count 196 (130-400) K/uL Procalcitonin 0.27 (0-0.5) ng/ml BMP 07/07/20 12:31 Sodium 146 H Potassium 3.6 Chloride 113 H Carbon Dioxide 30 BUN 26 H Creatinine 1.01 Glucose 81 Calcium 9.1 Cardiac Enzymes 07/07/20 Range/Units 12:31 Troponin I < 0.015 (0-0.045) ng/ml Liver Function 07/07/20 Range/Units 12:31 Total Bilirubin 0.8 (0.2-1) mg/dl AST 144 H (15-37) U/L ALT 130 H (12-78) U/L Alkaline Phosphatase 217 H (45-117) U/L Albumin 1.9 L (3.4-5.0) gm/dl Urine 07/07/20 Range/Units 15:04 Urine Color Dark Yellow Urine Appearance Turbid A (Clear) Urine pH 5.0 (4.5-7.5) Ur Specific Ramsey 1.023 (1.000-1.030) Urine Protein Trace H (Negative) Urine Glucose (UA) Negative (Negative) Diagnostic Findings Pelvis CT: IMPRESSION: 1. Induration of the perianal tissues and left greater than right inferior gluteal folds with a 1.2 x 0.8 cm perianal abscess of the 5:00 position perianal tissues with minimal subcutaneous emphysema noted extending superiorly towards the anus, possibly reflective of a developing sinus tract. There is associated perirectal and perianal inflammatory changes without supralevator extension of a sinus tract or fluid collection. 2. Extensive colonic diverticulosis without acute diverticulitis. CXR: IMPRESSION: 1. Mild left lung base opacities favor atelectasis/scarring. 2. 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 This has mildly increased in size from 2013 and has been present dating back to at least 2011. Medications Administered Discontinued Medications Sodium Chloride (Nss 1000ml) 1,000 mls @ 999 mls/hr IV .Q1H1M JAMEL Stop: 07/07/20 13:15 Last Admin: 07/07/20 13:41 Dose: 999 mls/hr Documented by: [id number] Vancomycin HCl 1,750 mg/ (Sodium Chloride) 535 mls @ 200 mls/hr IV NOW ONE Stop: 07/07/20 14:43 Last Admin: 07/07/20 15:07 Dose: 200 mls/hr Documented by: [id number] Cefepime HCl (Maxipime) 2,000 mg in 20 mls @ 5 mls/min IV NOW STA; Protocol Stop: 07/07/20 12:19 Last Admin: 07/07/20 13:35 Dose: 5 mls/min Documented by: [id number] Metronidazole (Flagyl) 500 mg in 100 mls @ 100 mls/hr IV NOW STA Stop: 07/07/20 13:15 Last Infusion: 07/07/20 14:38 Dose: 0 mls/hr Documented by: [id number] Admin: 07/07/20 13:38 Dose: 100 mls/hr Documented by: [id number] Ioversol (Ioversol 100ml) 94 ml IV ONCE ONE Stop: 07/07/20 14:01 Last Admin: 07/07/20 14:01 Dose: 94 ml Documented by: [id number] ECG Rate (beats per minute): 64 Rhythm: normal sinus Code Status & VTE Plan Code Status DNR/DNI VTE Prophylaxis Plan VTE Prophylaxis will be ordered: Yes Supervising Physician Co-Signing Physician Notes HISTORY: Record reviewed. Patient interviewed and examined. Care coordinated with Arleen Yepez PA-C. Please refer to her documentation for complete history. Briefly, 89 YO F who resides at [facility]. History of cerebrovascular disease, dementia, multiple sclerosis, and other problems. Nonambulatory. Diagnosed with cellulitis of left buttock a few days ago and started on TMP/sulfa. Referred to ED due to worsening infection despite oral antibiotic therapy. EXAM: General- elderly female, somnolent, no distress Lungs- clear to auscultation; no respiratory distress Cardiovascular- RRR; ; no JVD; trace pretibial edema Abdomen- + bowel sounds, soft, nontender Rectum- left perirectal abscess with superficial ulceration and surrounding erythem Extremities- no cyanosis; no calf tenderness Neuro- somnolent Skin- warm & dry DATA: WBC 22,260. Na 146. BUN 26, creatinine 1.01. Lactate 1.9. Total BR 0.8, AST 144, ALT 130, alk phos 217. Other lab studies as noted. PORT CHEST X-RAY: FINDINGS: Large partially calcified mass of the mediastinum is redemonstrated measuring up to approximately 9.9 cm, previously 8.5 cm. Calcified plaque the thoracic aorta. No pneumothorax, large pleural effusion or overt pulmonary edema. Mild left lung base linear opacities favor atelectasis/scarring. No airspace consolidation typical for pneumonia. Degenerative changes of the shoulders and spine. IMPRESSION: 1. Mild left lung base opacities favor atelectasis/scarring. 2. 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 This has mildly increased in size from 2014 and has been present dating back to at least 2011. Electronically signed by: Sid Starkey M.D. 07/07/2020 1:[address] PELVIS: FINDINGS: Mixed plaque of the aorta and iliac arteries. No aneurysm. No adenopathy. Extensive colonic diverticulosis without acute diverticulitis. There is mild wall thickening of the rectum and anus with mild perirectal stranding. Unremarkable uterus. Numerous urinary bladder diverticula with urinary bladder trabeculation. There is induration of the perianal tissues and inferior gluteal cleft cyst. Within the left inferomedial gluteal cleft there is a peripherally enhancing 1.2 x 0.8 cm fluid collection, image 202 of series 3. Adjacent subcutaneous emphysema is noted tracking superiorly towards the 5:00 position of the anus. No supralevator extension identified. No drainable fluid collection. Degenerative changes of the spine, pelvis and hips. IMPRESSION: 1. Induration of the perianal tissues and left greater than right inferior gluteal folds with a 1.2 x 0.8 cm perianal abscess of the 5:00 position perianal tissues with minimal subcutaneous emphysema noted extending superiorly towards the anus, possibly reflective of a developing sinus tract. There is associated perirectal and perianal inflammatory changes without supralevator extension of a sinus tract or fluid collection. 2. Extensive colonic diverticulosis without acute diverticulitis. Electronically signed by: Sid Starkey M.D. 07/07/2020 2:25 PM ASSESSMENT AND PLAN: PERIRECTAL ABSCESS WITH CELLULITIS WBC elevated. Afebrile. Hemodynamically stable. Blood and wound cultures obtained. History of MRSA. Broad spectrum antibiotic coverage with vancomycin + meropenem. Consult General Surgery and Wound Care Nursing. DEMENTIA Monitor for delirium. ABNORMAL CHEST X-RAY Large left paramediastinal mass noted on chest x-ray. Previously noted, as far back as 2011. ? previous evaluation. Check old records. VTE PROPHYLAXIS SQ enoxaparin. Please refer to JASMEET Yepez's documentation for discussion of other issues.
[2020-07-07 15:35] LABS: Appearance Urine Turbid (Clear); Bacteria Urine Automated 4+ (Negative); Bilirubin Urine Negative (Negative); Blood Urine Negative (Negative); Color Urine Dark Yellow; Epithelial Cell Urine Auto 0-5 /lpf (0-5); Glucose Urine UA Negative (Negative); Ketones Urine Negative (Negative); Leukocyte Esterase Urine 2+ (Negative); Nitrite Urine Negative (Negative); Protein Urine Trace (Negative); RBC Urine Automated 0-4 /hpf (0-4); Specific Gravity Urine 1.023 (1.000-1.030); Urobilinogen Urine Negative (Negative); WBC Urine Automated >30 /hpf (0-5)
[2020-07-07] MEDS ORDERED: MEROPENEM CONSULT ACITVE PRN (17:39)
[2020-07-07] MEDS ORDERED: ALUMINUM/MAGNESIUM SUSP 30 ML UDC PO PRN (17:39)
[2020-07-07] MEDS ORDERED: ACETAMINOPHEN 325 MG TAB PO PRN (17:39)
[2020-07-07] MEDS ORDERED: POLYETHYLENE (MIRALAX) 17 GM PACK PO PRN (17:39)
[2020-07-07] MEDS ORDERED: ONDANSETRON INJ 2 MG/ML 2 ML VIAL IV PRN (17:39)
--- NOTE | 2020-07-07 19:49 | Pharmacy Report ---
Pharmacy Abx Dose Short Note - Date of Service July 07, 2020 - Assessment & Plan Assessment * 89 year old F receiving meropenem and vancomycin for treatment of perianal abscess (failed outpatient Bactrim therapy) * Per Dr. Rios - confirmed would like meropenem therefore no de-escalation at this time * Possible MARIPOSA - SCr currently 1.0 mg/dL with baseline 0.6 mg/dL * Will dose vancomycin by level Plan * Vancomycin already administered in ED - no additional for now * Random level with AM labs Pharmacy will continue to follow and will adjust dose/frequency as necessary. Thank you.
[2020-07-07] MEDS: DOCUSATE SODIUM/SENNA 50/8.6MG TAB PO SCH (20:24)
[2020-07-07] MEDS: LEVOTHYROXINE SODIUM 125 MCG TABLET PO SCH (20:25)
[2020-07-07] MEDS: METOPROLOL TARTRATE 25 MG TAB PO SCH (20:25)
[2020-07-07] MEDS ORDERED: levETIRAcetam ORAL SOLN 100MG/ML PO SCH (21:00)
[2020-07-07] MEDS: MEROPENEM 500 MG in SYRINGE 0 ML IV SCH (21:53)
[2020-07-07] MEDS ORDERED: ENOXAPARIN INJ 30 MG/0.3 ML SYR SQ SCH (22:00)
--- NOTE | 2020-07-07 22:21 | Surgery Consultation ---
Date of Consultation July 07, 2020 Assessment & Plan (1) Abscess of buttock, right: She has buttock abscess with necrotic tissue over the coccyx decubiti. We are planning for debridement and drainage of the abscess with cleaning of the cavity. I have discussed this with her and with her son and they both agree. Her has given verbal consent over the phone. History of Present Illness Reason for Consultation: Buttock abscess Requesting Physician: Isaiah Rios MD Attending Physician: Isaiah Rios MD History of Present Illness I have been asked to see this 89-year-old female who was admitted from [facility] for buttock cellulitis and an abscess. The patient could not provide a history and it was obtained from the chart. The cellulitis began about 3 days ago. She was not complaining of pain. She never had any previous history of th is. She did not have fever. She was started on oral antibiotics in the form of Bactrim however there was no improvement. Allergies Allergy/AdvReac Type Severity Reaction Status Date / Time Penicillins Allergy Mild RASH Verified 07/07/20 13:46 Home Medications Medication Instructions Recorded Confirmed Type amiodarone [Pacerone] 200 mg PO QAM 05/14/19 07/07/20 History atorvastatin [Lipitor] 40 mg PO HS 05/14/19 07/07/20 History clobetasol-emollient 1 applic TOPICAL BID 05/14/19 07/07/20 History levetiracetam [Keppra] 750 mg PO BID 05/14/19 07/07/20 History levothyroxine [Synthroid] 125 mcg PO HS 05/14/19 07/07/20 History metoprolol tartrate 12.5 mg PO BID 05/14/19 07/07/20 History sennosides-docusate sodium 2 tab PO BID 05/14/19 07/07/20 History [Senna-S] acetaminophen [Tylenol] 650 mg PO Q6H PRN 07/07/20 07/07/20 History aspirin 162 mg PO QAM 07/07/20 07/07/20 History nystatin 1 applic TOPICAL Q12 PRN 07/07/20 07/07/20 History pantoprazole 40 mg PO QAM 07/07/20 07/07/20 History sulfamethoxazole-trimethoprim 1 tab PO BID 07/07/20 07/07/20 History Patient History Medical History Atrial fibrillation CAD (coronary artery disease) Diverticulosis GERD (gastroesophageal reflux disease) History of CVA with residual deficit HLD (hyperlipidemia) Hypothyroidism Multiple sclerosis TIA (transient ischemic attack) Vascular dementia Surgical History History of dilation and curettage History of hysterectomy History of tubal ligation Family History Mother Stroke Social History Smoking Status: Never smoker Second Hand Exposure: No; Do You Dip or Chew Tobacco: No; Tobacco Cessation Education Requested by Patient: No Hx Alcohol Use: No Hx Substance Use: No ( unknown.) Preferred Language: Chinese Communication Ability: Impaired Communication Ability Comment: dementia 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 Physical Exam Physical Exam: Buttock has a decubiti over the coccyx that measures about 2 to 3 cm in diameter and has necrotic tissue and is draining purulent material. There is some induration extends down along the left side of her buttock. There is also some drainage from the site lower. Constitutional: She is not verbal but did not appear to be in any acute distress Gastrointestinal (Abdomen): Inspection/Auscultation: abdomen not distended Percussion/Palpation: abdomen soft; abdomen nontender Results & Data ([facility]) Vital Signs (Past 12 Hours) Vital Signs Temp Pulse Pulse Pulse Resp BP BP 07/07/20 19:41 35.5 C L 72 18 121/88 07/07/20 17:45 36.6 C 68 70 16 126/66 07/07/20 17:01 70 16 145/68 H 07/07/20 16:45 69 16 07/07/20 16:30 69 13 07/07/20 16:23 72 13 114/62 07/07/20 16:15 70 14 07/07/20 16:00 72 13 142/71 H 07/07/20 15:45 72 13 07/07/20 15:30 73 14 07/07/20 15:15 77 14 07/07/20 15:08 72 21 132/62 07/07/20 15:00 18 07/07/20 14:45 71 12 07/07/20 14:30 74 17 07/07/20 14:15 63 21 07/07/20 14:09 68 16 106/60 07/07/20 13:50 71 18 137/99 07/07/20 12:53 07/07/20 12:13 36.9 C 68 16 140/59 L Pulse Ox 07/07/20 19:41 93 07/07/20 17:45 95 07/07/20 17:01 94 07/07/20 16:45 92 07/07/20 16:30 95 07/07/20 16:23 94 07/07/20 16:15 96 07/07/20 16:00 94 07/07/20 15:45 94 07/07/20 15:30 94 07/07/20 15:15 07/07/20 15:08 96 07/07/20 15:00 94 07/07/20 14:45 95 07/07/20 14:30 94 07/07/20 14:15 95 07/07/20 14:09 95 07/07/20 13:50 94 07/07/20 12:53 96 07/07/20 12:13 95
[2020-07-07] MEDS ORDERED: LACTATED RINGER'S 1,000 ML IV SCH (22:30)
--- NOTE | 2020-07-07 23:19 | Electrocardiogram Report ---
Test Reason : Blood Pressure : / mmHG Vent. Rate : 064 BPM Atrial Rate : 064 BPM P-R Int : 256 ms QRS Dur : 098 ms QT Int : 464 ms P-R-T Axes : 071 -14 001 degrees QTc Int : 478 ms Sinus rhythm with 1st degree A-V block Low voltage QRS Inferior infarct (cited on or before 26-NOV-2013) Abnormal ECG When compared with ECG of 14-MAY-2019 17:24, Nonspecific T wave abnormality now evident in Inferior leads T wave inversion now evident in Anterior leads Confirmed by Ramiro Velez ([id number]) on 07/07/2020 11:18:39 PM Referred By: Medina garcia [facility] Confirmed By:Ramiro Velez
[2020-07-07] MEDS: levETIRAcetam 750 MG in 0.9 % SODIUM CHLORIDE 100 ML IV SCH (23:31)
[2020-07-07] MEDS: EMBELINE E CREAM 0.05% 15 GM EXT SCH (23:33)
[2020-07-08] MEDS: MEROPENEM 500 MG in SYRINGE 0 ML IV SCH ×3 (04:55→20:05)
[2020-07-08] MEDS ORDERED: ACETAMINOPHEN 325 MG TAB PO PRN (07:00)
[2020-07-08] MEDS ORDERED: LIDOCAINE HCL 2% 2 ML VIAL/AMP(20MG/ML) INFIL ONE (07:33)
[2020-07-08] MEDS ORDERED: fentaNYL citrate 100 MCG/2 ML VIAL ONE (07:33)
[2020-07-08] MEDS ORDERED: ROCURONIUM BROMIDE 10 MG/ML 5 ML VIAL IV ONE (07:33)
[2020-07-08] MEDS ORDERED: ONDANSETRON INJ 2 MG/ML 2 ML VIAL ONE (07:33)
[2020-07-08] MEDS ORDERED: PROPOFOL IV EMULSION 10 MG/ML 20 ML VIAL IV ONE (07:33)
[2020-07-08 08:28] LABS: Basophils # (auto) 0.01 K/uL (0-0.2); Basophils % (auto) 0.1 %; Eosinophils # (auto) 0.02 K/uL (0-0.5); Eosinophils % (auto) 0.1 %; Hematocrit (blood only) 37.8 % (37-47); Hemoglobin 12.1 g/dL (12.0-16.0); Immature Granulocytes # (auto) 0.04 K/uL (0.00-0.02); Immature Granulocytes % (auto) 0.2 %; Lymphocytes # (auto) 1.77 K/uL (1.2-3.4); Lymphocytes % (auto) 9.2 %; Mean Corpuscular Hemoglobin 29.5 pg (25-34); Mean Corpuscular Volume 92.2 fL (80-100); Mean Platelet Volume 10.2 fL (7.4-10.4); Monocytes # (auto) 0.86 K/uL (0.11-0.59); Monocytes % (auto) 4.5 %; Neutrophils # (auto) 16.53 K/uL (1.4-6.5); Neutrophils % (auto) 85.9 %; Platelet Count 182 K/uL (130-400); RDW Coefficient of Variation 18.3 % (11.5-14.5); RDW Standard Deviation 61.7 fL (36.4-46.3); White Blood Count 19.23 K/uL (4.8-10.8)
[2020-07-08 08:43] LABS: Albumin Level 1.6 gm/dl (3.4-5.0); BUN Creatinine Ratio 31.9 (10-20); Calcium 8.8 mg/dl (8.5-10.1); Creatinine Clr Calc Pharmacy 46.6 ml/min; Est GFR (African American) 86.7; Est GFR (Non-African American) 74.8; Magnesium 2.5 mg/dl (1.8-2.4); Potassium 3.4 mmol/L (3.5-5.1)
[2020-07-08 08:49] LABS: Albumin Globulin Ratio 0.4 (0.9-2); Bilirubin,Total 0.6 mg/dl (0.2-1); Globulin 3.6 gm/dl (2.5-4.0); Total Protein 5.2 gm/dl (6.4-8.2)
[2020-07-08] MEDS ORDERED: ATROPINE SULFATE 0.1 MG/ML 10ML SYR IV PRN (09:47)
[2020-07-08] MEDS ORDERED: ONDANSETRON INJ 2 MG/ML 2 ML VIAL IV PRN (09:47)
[2020-07-08] MEDS ORDERED: fentaNYL citrate 100 MCG/2 ML VIAL IV PRN (09:47)
[2020-07-08] MEDS ORDERED: ePHEDrine sulfate 50 MG/ML AMP IV PRN (09:47)
--- NOTE | 2020-07-08 09:47 | Anesthesiology Consultation ---
Date of Service July 08, 2020 Assessment & Plan (1) Encounter for pre-operative examination: Chart Review Chart Review: Acceptable Risk for Surgery and Patient NOT seen in Pre Admission Testing Consults Requested none ASA ASA4 Proposed Anesthesia Anesthesia Type: General Anesthesia Line Insertion: Arterial line Risk / Benefits Reviewed With: PT / POA / Parent / Guardian, Accepts Plan and Informed Consent Obtained Additional Notes Existence of mediastinal mass reviewed on CT scan with the assistance of radiologist. Mass does not appear to be compressing heart or any great vessels. There is some concern that the mass may apply pressure to the pulmonary artery when the patient is flipped prone for the procedure. Dr. Sharma is aware but really needs prone positioning for procedure. Risk discussed with the patient's . Plan to place arterial line preop and monitor patient closely after induction and flipping prone. History Surgery Operation Date: 07/08/20 09:00 Proposed Procedures p Incision and Drainage General(Not Applicable) - Bipin Sharma MD Height/Weight Height: 5 ft 4 in Weight: 54.7 kg Allergies Allergy/AdvReac Type Severity Reaction Status Date / Time Penicillins Allergy Mild RASH Verified 07/07/20 13:46 Medications Home Medications Medication Instructions Recorded Confirmed Last Taken amiodarone [Pacerone] 200 mg PO QAM 05/14/19 07/07/20 Unknown atorvastatin [Lipitor] 40 mg PO HS 05/14/19 07/07/20 Unknown clobetasol-emollient 1 applic TOPICAL BID 05/14/19 07/07/20 Unknown levetiracetam [Keppra] 750 mg PO BID 05/14/19 07/07/20 Unknown levothyroxine [Synthroid] 125 mcg PO HS 05/14/19 07/07/20 Unknown metoprolol tartrate 12.5 mg PO BID 05/14/19 07/07/20 Unknown sennosides-docusate sodium 2 tab PO BID 05/14/19 07/07/20 Unknown [Senna-S] acetaminophen [Tylenol] 650 mg PO Q6H PRN 07/07/20 07/07/20 Unknown aspirin 162 mg PO QAM 07/07/20 07/07/20 Unknown nystatin 1 applic TOPICAL Q12 PRN 07/07/20 07/07/20 Unknown pantoprazole 40 mg PO QAM 07/07/20 07/07/20 Unknown sulfamethoxazole-trimethoprim 1 tab PO BID 07/07/20 07/07/20 Unknown Active Medications Generic Name Dose Route Start Last Admin Trade Name Lm PRN Reason Stop Dose Admin Clobetasol Propionate 1 appln 07/07/20 21:00 07/07/20 23:33 Embeline E Cream 0.05% 15 Gm EXT 08/06/20 20:59 Not Given BID JAMEL Enoxaparin Sodium 30 mg 07/07/20 22:00 07/07/20 20:25 Enoxaparin Inj 30 Mg/0.3 Ml Syr SQ 08/06/20 21:59 30 mg Q24H JAMEL Administration Meropenem 500 mg/ Syringe 10 mls @ 2 mls/min 07/07/20 20:00 07/08/20 04:55 IV 07/14/20 19:59 2 mls/min Q8H JAMEL Administration Protocol Levetiracetam 750 mg/ Sodium 107.5 mls @ 420 mls/hr 07/07/20 21:30 07/07/20 23:47 Chloride IV 08/06/20 21:29 Infused Q12H JAMEL Infusion Levothyroxine Sodium 125 mcg 07/07/20 21:00 07/07/20 20:25 Levothyroxine Sodium 125 Mcg Tablet PO 08/06/20 20:59 125 mcg HS JAMEL Administration Metoprolol Tartrate 12.5 mg 07/07/20 21:00 07/07/20 20:25 Metoprolol Tartrate 25 Mg Tab PO 08/06/20 20:59 12.5 mg BID JAMEL Administration Senna/Docusate Sodium 2 tab 07/07/20 21:00 07/07/20 20:24 Docusate Sodium/Senna 50/8.6mg Tab PO 08/06/20 20:59 2 tab BID JAMEL Administration NPO Date Last Intake of Fluids: 07/07/20 Time Last Intake of Fluids: 23:00 Date Last Intake of Solids: 07/07/20 Time Last Intake of Solids: 23:00 Past Medical History Medical History Atrial fibrillation CAD (coronary artery disease) Diverticulosis GERD (gastroesophageal reflux disease) History of CVA with residual deficit HLD (hyperlipidemia) Hypothyroidism Multiple sclerosis TIA (transient ischemic attack) Vascular dementia Exercise / Class Metabolic Activity IV < 2 Limit ADL/Bedbound Past Family History Family History Mother Stroke Past Surgical History Surgical History History of dilation and curettage History of hysterectomy History of tubal ligation Past Anesthesia History No Hx of Anesthesia Complications History of PONV No Hx of PONV Social History Smoking Status: Never smoker Do You Dip or Chew Tobacco: No Hx Alcohol Use: No Hx Substance Use: No ( unknown.) Review of Systems pt is nonverbal but does not appear to be in pain Physical Exam Vital Signs Last Vital Signs Temp 35.7 C L 07/08/20 07:56 Pulse 79 07/08/20 07:56 Resp 18 07/08/20 07:56 BP 131/68 07/08/20 07:56 Pulse Ox 98 07/08/20 07:56 Constitutional not obese ENMT Thyromental Distance: < 3.5 Finger Breadths Mallampati Class: Other (cannot assess - patient not cooperative) Mouth / Teeth: 1. dentition present - cannot assess further as patient is not cooperative Neck cannot assess neck mobility as patient is not cooperative Respiratory normal respiratory effort Auscultation: lungs clear to auscultation bilaterally Cardiovascular Rate/Rhythm: regular rate and regular rhythm Heart Sounds: no murmur Neurologic nonverbal - not alert or oriented x3 Testing Laboratory Results 07/08/20 08:06 07/08/20 08:06 PT 11.7 Seconds (9.0-12.0) 07/07/20 12:31 INR 1.1 (0.9-1.1) 07/07/20 12:31 APTT 29.6 Seconds (21.0-31.0) 07/07/20 12:31 Urine Color Dark Yellow 07/07/20 15:04 Urine Appearance Turbid (Clear) A 07/07/20 15:04 Urine pH 5.0 (4.5-7.5) 07/07/20 15:04 Ur Specific [place] 1.023 (1.000-1.030) 07/07/20 15:04 Urine Protein Trace (Negative) H 07/07/20 15:04 Urine Glucose (UA) Negative (Negative) 07/07/20 15:04 Urine Ketones Negative (Negative) 07/07/20 15:04 Urine Nitrite Negative (Negative) 07/07/20 15:04 Ur Leukocyte Esterase 2+ (Negative) H 07/07/20 15:04 Urine WBC (Auto) >30 /hpf (0-5) H 07/07/20 15:04 Urine RBC (Auto) 0-4 /hpf (0-4) 07/07/20 15:04 U Hyaline Cast (Auto) 10-30 /lpf (0-5) H 07/07/20 15:04 U Epithel Cells (Auto) 0-5 /lpf (0-5) 07/07/20 15:04 Urine Bacteria (Auto) 4+ (Negative) H 07/07/20 15:04 07/07/20 12:15 Gram Stain - Final Buttock,Right Deep Wound Culture - Preliminary Gram negative bacilli Electrocardiogram Date: 07/07/20 Findings: + NSR @ (64) Inferior infarct (cited on 11/26/2013), compared to 11/18/2018 EKG now with nonspecific T waves inferiorly and T wave inversion in anterior leads
--- NOTE | 2020-07-08 09:49 | Pharmacy Report ---
Pharmacy Abx Initial Consult - Date of Service July 08, 2020 - Pharmacy Dosing Scope Date of Consult: 07/07/20 Consultation requested by: Arleen Yepez Pharmacy is consulted to initiate VANCOMYCIN IV dosing therapy, order appropriate labs and adjust drug dose/frequency. - Subjective The patient is a 89 year old F admitted on 07/07/20 15:38. - Objective Height: 5 ft 4 in Weight: 54.7 kg Vital Signs (Past 12hrs): Vital Signs Temp Pulse Pulse Resp BP BP Pulse Ox 07/08/20 07:56 35.7 C L 79 18 131/68 98 07/08/20 07:25 65 07/08/20 05:25 35.8 C L 65 16 158/78 H 98 07/07/20 23:59 60 07/07/20 23:30 36.0 C L 66 16 124/56 L 93 Lab Results (24hrs): Laboratory Tests (24 Hours) 07/08/20 07/08/20 07/08/20 08:06 08:06 08:06 WBC 19.23 H Neut # (Auto) 16.53 H Creatinine 0.72 Est Cr Clr Drug Dosing 46.6 Procalcitonin Random Vancomycin 16.4 07/07/20 07/07/20 07/07/20 12:31 12:31 12:31 WBC 22.62 H Neut # (Auto) 17.61 H Creatinine 1.01 Est Cr Clr Drug Dosing Not Reportable Procalcitonin 0.27 Random Vancomycin Micro Results: 07/07/20 12:15 Gram Stain - Final Buttock,Right 07/07/20 15:04 Urine Culture - Pending Urine,Straight Cath 07/07/20 13:37 Aerobic Blood Culture - Pending Blood Anaerobic Blood Culture - Pending 07/07/20 12:31 Aerobic Blood Culture - Pending Blood Anaerobic Blood Culture - Pending - Risk Factors for Resistance * Resident in a correction or extended-care facility * History of infection with a multidrug-resistant organism: MRSA * Antimicrobial use within the last 90 days: Bactrim - Assessment & Plan Assessment 89 year old F receiving VANCOMYCIN + MEROPENEM after failing outpatient Bactrim treatment of perianal abscess. Plan Vancomycin IV * Loading dose: 1750mg (~32 mg/kg) x 1 dose given 07/07 @ 1500. * Random level drawn at 0806 today = 16.4 mcg/mL. * Maintenance dose: 500mg IV every 12 hours per AUC dosing nomogram. * Trough level ordered for 07/09/20 @ 0900 (Goal trough = 15-20 mcg/mL). Pharmacy will continue to follow and will adjust dose/frequency as necessary. Thank you.
--- NOTE | 2020-07-08 09:50 | History & Physical Bridge Note ---
Date of Service July 08, 2020 History & Physical Bridge Note I have examined the patient, reviewed the History & Physical and in the interval since the performance of the History & Physical I have noted the following changes of clinical significance: no changes noted
[2020-07-08] MEDS ORDERED: SUGAMMADEX SODIUM 200 MG/2 ML VIAL IV ONE (10:56)
--- NOTE | 2020-07-08 11:21 | Post Operative Brief Note ---
Immediate Post Op Note v1 Date of Surgery July 08, 2020 Pre & Post Diagnosis Operation Date: 07/08/20 09:00 Pre-Op Diagnosis: coccygeal decubitus Post-Op Diagnosis: coccygeal decubitus I identified the patient and participated in the time-out.: Yes Procedure Operation Date: 07/08/20 09:00 Actual Procedures p Debridement Coccygeal Decubitus, Skin and Deep Subcutaneous Tissue - Bipin Sharma MD Surgeon Bipin Sharma MD [employer] None Estimated Blood Loss 10 Findings Consistent with Post-Op Diagnosis Drains [place] Drain (1/2 inch)
--- NOTE | 2020-07-08 12:19 | Anesthesiology Progress Note ---
Date of Service July 08, 2020 Anesthesia Post Procedure Vital Signs Vital Signs: Temp Pulse Pulse Pulse Resp BP BP 07/08/20 12:05 70 12 114/55 L 07/08/20 11:55 72 14 122/60 07/08/20 11:45 74 14 119/72 07/08/20 11:38 73 14 105/60 07/08/20 11:32 36 C L 74 12 109/56 L 07/08/20 07:56 35.7 C L 79 18 07/08/20 07:25 65 07/08/20 05:25 35.8 C L 65 16 158/78 H 07/07/20 23:59 60 07/07/20 23:30 36.0 C L 66 16 07/07/20 19:41 35.5 C L 72 18 121/88 07/07/20 17:45 36.6 C 68 70 16 126/66 07/07/20 17:01 70 16 145/68 H 07/07/20 16:45 69 16 07/07/20 16:30 69 13 07/07/20 16:23 72 13 114/62 07/07/20 16:15 70 14 07/07/20 16:00 72 13 142/71 H 07/07/20 15:45 72 13 07/07/20 15:30 73 14 07/07/20 15:15 77 14 07/07/20 15:08 72 21 132/62 07/07/20 15:00 18 07/07/20 14:45 71 12 07/07/20 14:30 74 17 07/07/20 14:15 63 21 07/07/20 14:09 68 16 106/60 07/07/20 13:50 71 18 137/99 07/07/20 12:53 BP Pulse Ox 07/08/20 12:05 96 07/08/20 11:55 98 07/08/20 11:45 99 07/08/20 11:38 98 07/08/20 11:32 99 07/08/20 07:56 131/68 98 07/08/20 07:25 07/08/20 05:25 98 07/07/20 23:59 07/07/20 23:30 124/56 L 93 07/07/20 19:41 93 07/07/20 17:45 95 07/07/20 17:01 94 07/07/20 16:45 92 07/07/20 16:30 95 07/07/20 16:23 94 07/07/20 16:15 96 07/07/20 16:00 94 07/07/20 15:45 94 07/07/20 15:30 94 07/07/20 15:15 07/07/20 15:08 96 07/07/20 15:00 94 07/07/20 14:45 95 07/07/20 14:30 94 07/07/20 14:15 95 07/07/20 14:09 95 07/07/20 13:50 94 07/07/20 12:53 96 Transfer of Care Handoff Completed per policy Notes Mental Status: see notes below Patient Amnestic to Procedure: Yes Nausea / Vomiting: adequately controlled Pain: adequately controlled Airway Patency, RR, SpO2: stable & adequate BP & HR: stable & adequate Hydration State: stable & adequate Anesthetic Complications: no major complications apparent Notes: Patient back to preoperative baseline. Opens eyes when disturbed. Appears to be comfortable.
[2020-07-08] MEDS: VANCOMYCIN HCL 500 MG in SODIUM CHLORIDE 0.9% 250 ML IV SCH ×2 (13:15→22:03)
[2020-07-08] MEDS: EMBELINE E CREAM 0.05% 15 GM EXT SCH ×2 (13:16→20:07)
[2020-07-08] MEDS: AMIODARONE 200 MG TAB PO SCH (13:16)
[2020-07-08] MEDS: ASPIRIN 81 MG ECTAB PO SCH (13:16)
[2020-07-08] MEDS: DOCUSATE SODIUM/SENNA 50/8.6MG TAB PO SCH ×2 (13:17→20:28)
[2020-07-08] MEDS: PANTOprazole 40 MG TAB PO SCH (13:17)
[2020-07-08] MEDS: METOPROLOL TARTRATE 25 MG TAB PO SCH ×2 (13:17→20:14)
[2020-07-08] MEDS: levETIRAcetam 750 MG in 0.9 % SODIUM CHLORIDE 100 ML IV SCH ×2 (13:17→20:31)
--- NOTE | 2020-07-08 13:54 | Hospitalist Progress Note ---
Date of Service July 08, 2020 Assessment & Plan (1) Perianal abscess: (abscess with necrotic tissue over the coccyx decubiti) present on admission on 07/07/2020 s/p Debridement Coccygeal Decubitus, Skin and Deep Subcutaneous Tissue by Dr. Sharma on 06/18/2020 -was empirically started on IV vancomycin and meropenem on admission on 07/07/2020 , continue -follow the culture results -s/p Debridement Coccygeal Decubitus, Skin and Deep Subcutaneous Tissue by Dr. Sharma on 06/18/2020, she just returned from the operating room and PACU. On exam, patient just waking up more - she is not verbal with hospitalist as per documentation that with her dementia she is mostly non verbal, she moves her right upper extremity when asked to move her legs she cannot. will continue to monitor her on medical decker on telemetry (2) Vascular dementia: -as per admission note that patient is mostly non verbal Hypernatremia -serum sodium 146 on admission and rising to 148 by 07/08/2020 prior to the debridement -since unclear of recent nutritional status in context of patient with dementia, will start banana bag, will then give daily thiamine and folic acid, consult gold leaf roller -IV fluids post-op is changed to d5 1/2 normal saline at 60 cc/hr for now. will later recheck serum sodium levels (3) History of CVA with residual deficit: -with Left hemiparesis as per admission note -continue aspirin -statin on due to elevated Liver function enzymes on admission (4) HLD (hyperlipidemia): -hold statin in setting of elevated LFTs on admission (5) Elevated transaminase level: -on admission she had noted elevations in liver function tests (AST 144, ALT 130, ALP 217 T bili 0.8, no abdominal pain) compared to prior known LFTS in 04/2020 that were within normal ranges -admission team held the statin, (6) Acute worsening of stage 3 chronic kidney disease: -baseline cr 0.6 to 0.7 compared to 1.0 on admission -creatine downtrended with initial admission IV fluids (7) Atrial fibrillation: -rate and rhythm controlled on amiodarone and metoprolol -not on anticoagulation (8) Hypothyroidism: -continue levothyroxine (9) DVT prophylaxis: -SQ Lovenox case management needs she is from [facility] and her primary care doctor is Dr. Harley Admission and Anticipated Discharge Date Admission Date: July 07, 2020 Subjective -s/p Debridement Coccygeal Decubitus, Skin and Deep Subcutaneous Tissue by Dr. Sharma on 06/18/2020, she just returned from the operating room and PACU. On exam, patient just waking up more - she is not verbal with hospitalist as per documentation that with her dementia she is mostly non verbal, she moves her right upper extremity when asked to move her legs she cannot. Review of Systems Review of Systems: Unobtainable due to cognitive status Physical Exam Constitutional: + thin Eyes: EOM intact bilaterally ENMT: external ear and nose normal, oropharynx normal Neck: normal visual inspection Respiratory: normal respiratory effort Cardiovascular: Rate/Rhythm: regular rate Gastrointestinal (Abdomen): normal bowel sounds, soft, nontender, no hepatosplenomegaly Musculoskeletal: Head/Neck/Chest: normocephalic Neurologic: -s/p Debridement Coccygeal Decubitus, Skin and Deep Subcutaneous Tissue by Dr. Sharma on 06/18/2020, she just returned from the operating room and PACU. On exam, patient just waking up more - she is not verbal with hospitalist as per documentation that with her dementia she is mostly non verbal, she moves her right upper extremity when asked to move her legs she cannot. Psychiatric: Orientation: alert Results & Data Results & Data ([facility]) Vital Signs (Past 12 Hours) Vital Signs Temp Pulse Pulse Pulse Resp BP BP 07/08/20 12:40 67 12 106/54 L 07/08/20 12:25 36.2 C L 68 12 101/59 L 07/08/20 12:15 70 14 103/53 L 07/08/20 12:05 70 12 114/55 L 07/08/20 11:55 72 14 122/60 07/08/20 11:45 74 14 119/72 07/08/20 11:38 73 14 105/60 07/08/20 11:32 36 C L 74 12 109/56 L 07/08/20 07:56 35.7 C L 79 18 131/68 07/08/20 07:25 65 07/08/20 05:25 35.8 C L 65 16 158/78 H Pulse Ox 07/08/20 12:40 94 07/08/20 12:25 95 07/08/20 12:15 95 07/08/20 12:05 96 07/08/20 11:55 98 07/08/20 11:45 99 07/08/20 11:38 98 07/08/20 11:32 99 07/08/20 07:56 98 07/08/20 07:25 07/08/20 05:25 98
[2020-07-08] MEDS ORDERED: MULTI-VITAMIN INFUSION 10 ML, THIAMINE HCL 100 MG, FOLIC ACID 1 MG in SODIUM CHLORIDE 0... IV ONE (14:30)
[2020-07-08] MEDS: D5W AND 1/2NSS 1,000 ML IV SCH (14:38)
--- NOTE | 2020-07-08 14:42 | Operative Report (OR) ---
DATE OF OPERATION: 07/07/2020 PREOPERATIVE DIAGNOSES: Decubitus of the coccyx area and sebaceous cyst in perineum. POSTOPERATIVE DIAGNOSES: Decubitus of the coccyx area and sebaceous cyst in perineum. PROCEDURE: Debridement of coccyx decubitus and excision of sebaceous cyst. SURGEON: Bipin Sharma MD. BEAM SEALER: None. PROCEDURE: The patient was initially admitted with cellulitis in the perineum with a CAT scan showing an approximate 1 cm abscess. That proved to be a sebaceous cyst that had spontaneously drained. There were 2 pinhole openings and this was located in the peritoneum just posterior to the attachment of the labia on the left. There was a classic sebaceous material within it. There was no further infection. The induration was resolving. She also had a sebaceous cyst that was in the area of the coccyx and towards the left. It was approximately a centimeter off the midline. The skin opening measured 2.8 x 1 x 1.1 cm. There was a lot of necrotic tissue within the base and after debridement, there was 2.5 cm of undermining superiorly. There was also a tract that extended anteriorly to the right of the anal opening. It extended for about 5 cm. I made a counterincision there. That counterincision was also a 2.5 cm posterior to the sebaceous cyst opening. TECHNIQUE: The patient was given intravenous sedation, positioned in the prone position. The area was prepped and draped in the usual sterile fashion. The decubitus was approached first. The necrotic tissue around the inner portion of the skin opening was removed. This exposed purulent drainage as well as deeper necrotic tissue. This was cultured. The necrotic tissue was then excised back to normal appearing bleeding tissue around the entire circumference and around the entire base. As I was dissecting necrotic tissue anteriorly discovered the tract. I bluntly was able to follow the tract for a distance of 5 cm and made a counterincision there. This area was also debrided, although the tissue in this portion appeared healthy. I then approached the sebaceous cyst. I extended the incision between the pinholes. The capsule of the cyst was identified and was sharply removed from the surrounding fatty tissue. There was some bleeding in the base that was controlled with cautery. Also, required a [id number] suture of 3-0 Vicryl. There was no further bleeding. It appeared as though the entire capsule had been removed. I then passed a half-inch Page drain from the decubitus down through the counter incision and secured it by suturing it to itself with a nylon suture. The undermined area of the decubitus was packed. Dressing was only placed over the sebaceous opening. This was not closed due to the recent infection. Estimated blood loss was 10 mL. The area was dressed and the patient tolerated the surgical procedure without complication. I attest to the content of the Intraoperative Record and any orders documented therein. Any exception s are noted below.
[2020-07-08] MEDS: LEVOTHYROXINE SODIUM 125 MCG TABLET PO SCH (20:13)
[2020-07-08] MEDS ORDERED: KETOROLAC TROMETHAMINE 15 MG/ML VIAL IV ONE (20:44)
[2020-07-08 22:17] LABS: BUN Creatinine Ratio 30.6 (10-20); Creatinine Clr Calc Pharmacy 50.1 ml/min; Est GFR (Non-African American) 78.5
[2020-07-09] MEDS: MEROPENEM 500 MG in SYRINGE 0 ML IV SCH ×3 (03:30→20:43)
[2020-07-09] MEDS: D5W AND 1/2NSS 1,000 ML IV SCH ×2 (03:33→16:10)
[2020-07-09] MEDS ORDERED: POTASSIUM CHLORIDE 20 MEQ/15 ML UDC PO STA (07:39)
[2020-07-09 07:48] LABS: Basophils # (auto) 0.01 K/uL (0-0.2); Basophils % (auto) 0.1 %; Eosinophils # (auto) 0.14 K/uL (0-0.5); Hematocrit (blood only) 32.7 % (37-47); Hemoglobin 10.2 g/dL (12.0-16.0); Immature Granulocytes # (auto) 0.05 K/uL (0.00-0.02); Immature Granulocytes % (auto) 0.4 %; Lymphocytes % (auto) 16.3 %; Mean Corpuscular Hemoglobin 29.3 pg (25-34); Mean Corpuscular Hgb Conc 31.2 g/dL (32-36); Monocytes # (auto) 0.49 K/uL (0.11-0.59); Monocytes % (auto) 3.5 %; Neutrophils % (auto) 78.7 %; Platelet Count 161 K/uL (130-400); RDW Coefficient of Variation 18.7 % (11.5-14.5); RDW Standard Deviation 63.6 fL (36.4-46.3); Red Blood Count 3.48 M/uL (4.2-5.4); White Blood Count 14.09 K/uL (4.8-10.8)
[2020-07-09] MEDS: POTASSIUM CHLORIDE / WTR 10 MEQ/100 ML PLCT IV SCH ×3 (08:09→10:32)
[2020-07-09] MEDS: FOLIC ACID 1 MG in SYRINGE 9.8 ML IV SCH (08:13)
[2020-07-09] MEDS: THIAMINE HCL 100 MG in SYRINGE 9 ML IV SCH (08:13)
[2020-07-09] MEDS: DOCUSATE SODIUM/SENNA 50/8.6MG TAB PO SCH ×2 (08:17→20:54)
[2020-07-09] MEDS: METOPROLOL TARTRATE 25 MG TAB PO SCH ×2 (08:19→20:47)
[2020-07-09 08:24] LABS: Albumin Level 1.3 gm/dl (3.4-5.0); BUN Creatinine Ratio 26.2 (10-20); Calcium 8.5 mg/dl (8.5-10.1); Creatinine Clr Calc Pharmacy 44.8 ml/min; Est GFR (African American) 82.5; Est GFR (Non-African American) 71.2; Potassium 3.3 mmol/L (3.5-5.1)
[2020-07-09] MEDS: PANTOprazole 40 MG TAB PO SCH (08:25)
[2020-07-09] MEDS: EMBELINE E CREAM 0.05% 15 GM EXT SCH ×2 (08:25→20:48)
[2020-07-09] MEDS: AMIODARONE 200 MG TAB PO SCH (08:26)
[2020-07-09] MEDS: ASPIRIN 81 MG ECTAB PO SCH (08:26)
[2020-07-09 08:35] LABS: Albumin Globulin Ratio 0.4 (0.9-2); Bilirubin,Total 0.3 mg/dl (0.2-1); Globulin 3.2 gm/dl (2.5-4.0); Thyroid Stimulating Hormone 3.05 uIu/ml (0.300-4.500); Total Protein 4.5 gm/dl (6.4-8.2)
[2020-07-09] MEDS ORDERED: METOPROLOL TARTRATE 1 MG/ML VIAL IV PRN (08:45)
--- NOTE | 2020-07-09 08:58 | Hospitalist Progress Note ---
Date of Service July 09, 2020 Assessment & Plan (1) Perianal abscess: (abscess with necrotic tissue over the coccyx decubiti) present on admission on 07/07/2020 s/p Debridement Coccygeal Decubitus, Skin and Deep Subcutaneous Tissue by Dr. Sharma on 06/18/2020 -was empirically started on IV vancomycin and meropenem on admission on 07/07/2020 , continue -follow the culture results -s/p Debridement Coccygeal Decubitus, Skin and Deep Subcutaneous Tissue by Dr. Sahrma on 06/18/2020, she just returned from the operating room and PACU. On exam, patient just waking up more - she is not verbal with hospitalist as per documentation that with her dementia she is mostly non verbal, she moves her right upper extremity when asked to move her legs she cannot. will continue to monitor her on medical decker on telemetry 07/09/2020 exam and updates: patient is not ambulatory at baseline and this is confirmed with her son Manuel by telephone, patient does not move her legs on the bed. patient seen and examined at bedside with nurse. patient ate with assistance after surgery on 07/08/2020. But she is not cooperating to take oral medications this morning and some medications have to be adjusted to IV formulation. Her serum sodium remains elevated above 145 and as per her son Manuel this sign of bed bug exterminator dehydration is not surprising because patient has trouble with oral intake in the [facility] setting - likely because of history of dementia. Patient is awake but nonverbal as per general baseline and full review of systems cannot be performed. Patient does not appear to be in acute pain and is breathing comfortably. Patient continues to be on IV fluids and IV antibiotics. Sacral area with dressing. General surgery is following the patient. Wound care nursing consult also requested when they return to hospital service starting on Friday07/10/2020 (2) Vascular dementia: -as per admission note that patient is mostly non verbal Hypernatremia -serum sodium 146 on admission and rising to 148 by 07/08/2020 prior to the debridement -since unclear of recent nutritional status in context of patient with dementia, will start banana bag, will then give daily thiamine and folic acid, consult high density talc coater operator -IV fluids post-op is changed to d5 1/2 normal saline at 60 cc/hr for now. 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 if possible, cannot do rectal aspirin because of recent surgery -statin on due to elevated Liver function enzymes on admission -her oral Keppra of 750 mg BID by mouth is currently as IV formulation (4) HLD (hyperlipidemia): -hold statin in setting of elevated LFTs on admission and because of uncertain oral intake (5) Elevated transaminase level: -on admission she had noted elevations in liver function tests (AST 144, ALT 130, ALP 217 T bili 0.8, no abdominal pain) compared to prior known LFTS in 04/2020 that were within normal ranges -admission team held the statin, continue to hold for now (6) Acute worsening of stage 3 chronic kidney disease: -baseline cr 0.6 to 0.7 compared to 1.0 on admission -creatine downtrended with initial admission IV fluids (7) Atrial fibrillation: -rate and rhythm controlled on amiodarone and metoprolol -not on anticoagulation from [facility] -because of concerns of irregular eating habits, will also add IV metoprolol prn if heart rates above 110 bpm, in case there are times that patient not taking the oral cardiac medications by mouth (8) Hypothyroidism: -oral levothyroxine 125 mcg daily is switched to IV 62.5 mcg because of patient delined oral medications in AM of 07/09/2020 (9) DVT prophylaxis: -SQ Lovenox while in the hospital for DVT prophylaxis case management needs she is from [facility] and her primary care doctor is Dr. Harley Family: Pola Schmdi [phone] Manuel Schmid son [phone] Forest Schmid son and orthopedics [phone] Admission and Anticipated Discharge Date Admission Date: July 07, 2020 Subjective patient is not ambulatory at baseline and this is confirmed with her son Manuel by telephone, patient does not move her legs on the bed patient seen and examined at bedside with nurse. patient ate with assistance after surgery on 07/08/2020. But she is not cooperating to take oral medications this morning and some medications have to be adjusted to IV formulation. Her serum sodium remains elevated above 145 and as per her son Manuel this sign of bed bug exterminator dehydration is not surprising because patient has trouble with oral intake in the [facility] setting - likely because of history of dementia. Patient is awake but nonverbal as per general baseline and full review of systems cannot be performed. Patient does not appear to be in acute pain and is breathing comfortably. Patient continues to be on IV fluids and IV antibiotics. Sacral area with dressing. General surgery is following the patient. Wound care nursing consult also requested when they return to hospital service starting on Friday07/10/2020 Review of Systems Review of Systems: Unobtainable due to cognitive status Physical Exam Constitutional: + thin Eyes: EOM intact bilaterally ENMT: external ear and nose normal, oropharynx normal Neck: normal visual inspection Respiratory: normal respiratory effort Cardiovascular: Rate/Rhythm: regular rate Gastrointestinal (Abdomen): normal bowel sounds, soft, nontender, no hepatosplenomegaly Musculoskeletal: Head/Neck/Chest: normocephalic Neurologic: awake patient is not ambulatory at baseline and this is confirmed with her son by telephone, patient does not move her legs Psychiatric: Orientation: alert Results & Data Results & Data ([facility]) Vital Signs (Past 12 Hours) Vital Signs Temp Pulse Pulse Resp BP BP Pulse Ox 07/09/20 08:24 66 16 85/47 L 91 07/09/20 07:11 60 07/09/20 04:04 35.6 C L 67 16 96/51 L 94 07/09/20 00:00 63 07/08/20 23:00 36.5 C 70 16 93/54 L 95
[2020-07-09] MEDS ORDERED: VANCOMYCIN TROUGH ONE (09:30)
[2020-07-09] MEDS: levETIRAcetam 750 MG in 0.9 % SODIUM CHLORIDE 100 ML IV SCH ×2 (09:43→20:48)
[2020-07-09] MEDS: VANCOMYCIN HCL 500 MG in SODIUM CHLORIDE 0.9% 250 ML IV SCH ×2 (09:51→21:35)
--- NOTE | 2020-07-09 10:02 | Pharmacy Report ---
Pharmacy Abx Dose Progress Nt - Date of Service July 09, 2020 - Pharmacy Dosing Scope The patient is currently receiving the following antimicrobial agents per Pharmacy consult: VANCOMYCIN 500mg IV every 12 hours - Objective Vital Signs (Past 12hrs): Vital Signs Temp Pulse Pulse Resp BP BP Pulse Ox 07/09/20 08:24 66 16 85/47 L 91 07/09/20 07:11 60 07/09/20 04:04 35.6 C L 67 16 96/51 L 94 07/09/20 00:00 63 07/08/20 23:00 36.5 C 70 16 93/54 L 95 Lab Results (24hrs): Laboratory Tests (24 Hours) 07/09/20 07/09/20 07/09/20 07:26 07:26 07:26 WBC 14.09 H Neut # (Auto) 11.10 H Creatinine 0.75 Est Cr Clr Drug Dosing 44.8 Vancomycin Trough 17.5 07/08/20 21:22 WBC Neut # (Auto) Creatinine 0.67 Est Cr Clr Drug Dosing 50.1 Vancomycin Trough Micro Results: 07/07/20 12:15 Gram Stain - Final Buttock,Right 07/08/20 10:45 Gram Stain - Final Buttock Decubitus Aerobic and Anaerobic Culture - Pending - Assessment & Plan Assessment 89 year old F receiving VANCOMYCIN/MEROPENEM for treatment of PERIANAL ABSCESS Day # 3 of antimicrobial therapy Plan Vancomycin IV * Trough level of 17.5 mcg/mL is therapeutic. Level was drawn ~2 hours early, but nicely within goal trough range. * Continue dose of 500mg IV every 12 hours. * Goal trough level for SST : 15 to 20 mcg/mL * Will recheck a trough level in a few days or with any changes in renal function. Pharmacy will continue to follow and will adjust dose/frequency as necessary. Thank you.
[2020-07-09] MEDS: PANTOprazole 40 MG in SYRINGE 0 ML IV SCH (10:57)
--- NOTE | 2020-07-09 11:46 | Surgery Progress Note ---
Date of Service July 09, 2020 Assessment & Plan (1) Decubitus ulcer: The base of the ulcer is healthy. The packing was removed. The sebaceous cyst site is clean. Await wound care opinion. Continue local care for now. Admission and Anticipated Discharge Date Admission Date: July 07, 2020 Subjective Patient is nonverbal. She does not appear to have pain Physical Exam Physical Exam: Sacral decubitus base is clean. There is no further skin erythema or necrosis. [place] drain is in place. The tissue on the inferior aspect incision is pink as well. There is no further purulent drainage. There was some serosanguineous drainage noted. The sebaceous cyst site is clean and dry. Results & Data ([facility]) Vital Signs (Past 12 Hours) Vital Signs Temp Pulse Pulse Resp BP BP Pulse Ox 07/09/20 08:24 66 16 85/47 L 91 07/09/20 07:11 60 07/09/20 04:04 35.6 C L 67 16 96/51 L 94 07/09/20 00:00 63 Laboratory Results 07/09/20 07/09/20 07/09/20 Range/Units 07:26 07:26 07:26 WBC 14.09 H (4.8-10.8) K/uL RBC 3.48 L (4.2-5.4) M/uL Hgb 10.2 L (12.0-16.0) g/dL Hct 32.7 L (37-47) % MCV 94.0 (80-100) fL MCH 29.3 (25-34) pg MCHC 31.2 L (32-36) g/dL RDW Std Deviation 63.6 H (36.4-46.3) fL RDW Coeff of Jessy 18.7 H (11.5-14.5) % Plt Count 161 (130-400) K/uL MPV 10.0 (7.4-10.4) fL Immature Gran % (Auto) 0.4 % Neut % (Auto) 78.7 % Lymph % (Auto) 16.3 % Barry % (Auto) 3.5 % Eos % (Auto) 1.0 % Baso % (Auto) 0.1 % Neut # (Auto) 11.10 H (1.4-6.5) K/uL Lymph # (Auto) 2.30 (1.2-3.4) K/uL Barry # (Auto) 0.49 (0.11-0.59) K/uL Eos # (Auto) 0.14 (0-0.5) K/uL Baso # (Auto) 0.01 (0-0.2) K/uL Immature Gran # (Auto) 0.05 H (0.00-0.02) K/uL Sodium 148 H (136-145) mmol/L Potassium 3.3 L (3.5-5.1) mmol/L Chloride 119 H (98-107) mmol/L Carbon Dioxide 25 (21-32) mmol/L Anion Gap 4.0 (3-11) BUN 20 H (7-18) mg/dl Creatinine 0.75 (0.6-1.2) mg/dl Est Cr Clr Drug Dosing 44.8 ml/min Est GFR ( Amer) 82.5 Est GFR (Non-Af Amer) 71.2 BUN/Creatinine Ratio 26.2 H (10-20) Glucose 123 H (70-99) mg/dl Calcium 8.5 (8.5-10.1) mg/dl Total Bilirubin 0.3 (0.2-1) mg/dl AST 71 H (15-37) U/L ALT 85 H (12-78) U/L Alkaline Phosphatase 130 H (45-117) U/L Total Protein 4.5 L (6.4-8.2) gm/dl Albumin 1.3 L (3.4-5.0) gm/dl Globulin 3.2 (2.5-4.0) gm/dl Albumin/Globulin Ratio 0.4 L (0.9-2) TSH 3.050 (0.300-4.500) uIu/ml Vancomycin Trough 17.5 (See Comment) mcg/ml 07/08/20 Range/Units 21:22 WBC (4.8-10.8) K/uL RBC (4.2-5.4) M/uL Hgb (12.0-16.0) g/dL Hct (37-47) % MCV (80-100) fL MCH (25-34) pg MCHC (32-36) g/dL RDW Std Deviation (36.4-46.3) fL RDW Coeff of Jessy (11.5-14.5) % Plt Count (130-400) K/uL MPV (7.4-10.4) fL Immature Gran % (Auto) % Neut % (Auto) % Lymph % (Auto) % Barry % (Auto) % Eos % (Auto) % Baso % (Auto) % Neut # (Auto) (1.4-6.5) K/uL Lymph # (Auto) (1.2-3.4) K/uL Barry # (Auto) (0.11-0.59) K/uL Eos # (Auto) (0-0.5) K/uL Baso # (Auto) (0-0.2) K/uL Immature Gran # (Auto) (0.00-0.02) K/uL Sodium 149 H (136-145) mmol/L Potassium 3.0 L (3.5-5.1) mmol/L Chloride 120 H (98-107) mmol/L Carbon Dioxide 25 (21-32) mmol/L Anion Gap 4.0 (3-11) BUN 20 H (7-18) mg/dl Creatinine 0.67 (0.6-1.2) mg/dl Est Cr Clr Drug Dosing 50.1 ml/min Est GFR ( Amer) 91.0 Est GFR (Non-Af Amer) 78.5 BUN/Creatinine Ratio 30.6 H (10-20) Glucose 116 H (70-99) mg/dl Calcium 8.0 L (8.5-10.1) mg/dl Total Bilirubin (0.2-1) mg/dl AST (15-37) U/L ALT (12-78) U/L Alkaline Phosphatase (45-117) U/L Total Protein (6.4-8.2) gm/dl Albumin (3.4-5.0) gm/dl Globulin (2.5-4.0) gm/dl Albumin/Globulin Ratio (0.9-2) TSH (0.300-4.500) uIu/ml Vancomycin Trough (See Comment) mcg/ml
[2020-07-09] MEDS ORDERED: SODIUM CHLORIDE 0.9% 1000ML 500 ML IV ONE (17:07)
--- NOTE | 2020-07-09 17:24 | Communication Note ---
Date of Service: July 09, 2020 suspected that today's low blood pressure recordings were inaccurate due to patient's dementia and problems with positioning the arm correctly. as per vital check now, nurse reports if she hold patient's arm properly current blood pressure is 122/66"
[2020-07-10] MEDS: MEROPENEM 500 MG in SYRINGE 0 ML IV SCH ×2 (04:38→11:47)
[2020-07-10] MEDS: D5W AND 1/2NSS 1,000 ML IV SCH (05:36)
[2020-07-10] MEDS: METOPROLOL TARTRATE 25 MG TAB PO SCH ×2 (07:12→20:06)
[2020-07-10] MEDS: ASPIRIN 81 MG ECTAB PO SCH (07:12)
[2020-07-10] MEDS: AMIODARONE 200 MG TAB PO SCH (07:12)
[2020-07-10] MEDS: DOCUSATE SODIUM/SENNA 50/8.6MG TAB PO SCH ×2 (07:16→20:05)
[2020-07-10] MEDS: THIAMINE HCL 100 MG in SYRINGE 9 ML IV SCH (08:13)
[2020-07-10] MEDS: EMBELINE E CREAM 0.05% 15 GM EXT SCH ×2 (08:13→20:11)
[2020-07-10] MEDS: FOLIC ACID 1 MG in SYRINGE 9.8 ML IV SCH (08:13)
[2020-07-10] MEDS: levETIRAcetam 750 MG in 0.9 % SODIUM CHLORIDE 100 ML IV SCH (08:14)
--- NOTE | 2020-07-10 08:24 | Hospitalist Progress Note ---
Date of Service July 10, 2020 Assessment & Plan (1) Perianal abscess: (abscess with necrotic tissue over the coccyx decubiti) present on admission on 07/07/2020 s/p Debridement Coccygeal Decubitus, Skin and Deep Subcutaneous Tissue by Dr. Sharma on 06/18/2020 -was empirically started on IV vancomycin and meropenem on admission on 07/07/2020 , continue -follow the culture results -s/p Debridement Coccygeal Decubitus, Skin and Deep Subcutaneous Tissue by Dr. Sharma on 06/18/2020, she just returned from the operating room and PACU. On exam, patient just waking up more - she is not verbal with hospitalist as per documentation that with her dementia she is mostly non verbal, she moves her right upper extremity when asked to move her legs she cannot. will continue to monitor her on medical decker on telemetry -07/09/2020 exam and updates: patient is not ambulatory at baseline and this is confirmed with her son Manuel by telephone, patient does not move her legs on the bed. patient seen and examined at bedside with nurse. patient ate with assistance after surgery on 07/08/2020. But she is not cooperating to take oral medications this morning and some medications have to be adjusted to IV formulation. Her serum sodium remains elevated above 145 and as per her son Manuel this sign of fci dehydration is not surprising because patient has trouble with oral intake in the residential setting - likely because of history of dementia. Patient is awake but nonverbal as per general baseline and full review of systems cannot be performed. Patient does not appear to be in acute pain and is breathing comfortably. Patient continues to be on IV fluids and IV antibiotics. A garcia was placed for monitoring of urine output and to keep sacral area clean. Sacral area with dressing. General surgery is following the patient. Wound care nursing consult also requested when they return to hospital service starting on Friday07/10/2020 -07/10/2020 updates: electrolyte and CBC labs to be re-assessed. patient seen and examined this morning and cooperating with nursing staff when being assisted by feeding. The D5 1/2 normal saline can be held for now while the AM labs are pending. Patient's nurse noting that the urine in the garcia is not as much as she expects for output. To prevent complication to kidney function, vancomycin will be stopped on 07/10/2020. Continue IV meropenem. Nurse also affirming on physical exam that patient moves only the right upper extremities minimally, she does not move the left upper extremity, patient does not move her legs. She does not verbally respond to hospitalist physician but she responds verbally to nurse's questions. Review of systems is limited because of her dementia but patient does not appear to be in acute pain and appears comfortable with her breathing (2) Vascular dementia: -as per admission note that patient is mostly non verbal Hypernatremia -serum sodium 146 on admission and rising to 148 by 07/08/2020 prior to the debridement -since unclear of recent nutritional status in context of patient with dementia, will start banana bag, will then give daily thiamine and folic acid, consult creel clerk -IV fluids post-op is changed to d5 1/2 normal saline at 60 cc/hr for now. 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: -with Left hemiparesis as per admission note -continue aspirin by [facility] if possible, cannot do rectal aspirin because of recent surgery -statin on due to elevated Liver function enzymes on admission -her oral Keppra of 750 mg BID by mouth is currently as IV formulation (4) HLD (hyperlipidemia): -hold statin in setting of elevated LFTs on admission and because of uncertain oral intake (5) Elevated transaminase level: -on admission she had noted elevations in liver function tests (AST 144, ALT 130, ALP 217 T bili 0.8, no abdominal pain) compared to prior known LFTS in 04/2020 that were within normal ranges -admission team held the statin, continue to hold for now (6) Acute worsening of stage 3 chronic kidney disease: -baseline cr 0.6 to 0.7 compared to 1.0 on admission -creatine downtrended with initial admission IV fluids -creatinine labs on 07/10/2020 are pending (7) Atrial fibrillation: -rate and rhythm controlled on amiodarone and metoprolol -not on anticoagulation from residential -because of concerns of irregular eating habits, will also add IV metoprolol prn if heart rates above 110 bpm, in case there are times that patient not taking the oral cardiac medications by mouth (8) Hypothyroidism: -oral levothyroxine 125 mcg daily is switched to IV 62.5 mcg because of patient delined oral medications in AM of 07/09/2020 (9) DVT prophylaxis: -SQ Lovenox while in the hospital for DVT prophylaxis case management needs she is from [facility] and her primary care doctor is Dr. Harley Family: Pola Schmid [phone] Manuel Schmid son [phone] Forest Schmid son and orthopedics [phone] Admission and Anticipated Discharge Date Admission Date: July 07, 2020 Subjective electrolyte and CBC labs to be re-assessed. patient seen and examined this morning and cooperating with nursing staff when being assisted by feeding. The D5 1/2 normal saline can be held for now while the AM labs are pending. Patient's nurse noting that the urine in the garcia is not as much as she expects for output. To prevent complication to kidney function, vancomycin will be stopped on 07/10/2020. Continue IV meropenem. Nurse also affirming on physical exam that patient moves only the right upper extremities minimally, she does not move the left upper extremity, patient does not move her legs. She does not verb ally respond to hospitalist physician but she responds verbally to nurse's questions. Review of systems is limited because of her dementia but patient does not appear to be in acute pain and appears comfortable with her breathing Review of Systems Review of Systems: Unobtainable due to cognitive status Physical Exam Constitutional: + thin Eyes: EOM intact bilaterally ENMT: external ear and nose normal, oropharynx normal Neck: normal visual inspection Respiratory: normal respiratory effort Cardiovascular: Rate/Rhythm: regular rate Gastrointestinal (Abdomen): normal bowel sounds, soft, nontender, no hepatosplenomegaly Musculoskeletal: Head/Neck/Chest: normocephalic Neurologic: awake patient moves only the right upper extremities minimally, she does not move the left upper extremity, patient does not move her legs. Psychiatric: Orientation: alert Genitourinary: + bladder abnormality (garcia) Results & Data Results & Data ([facility]) Vital Signs (Past 12 Hours) Vital Signs Temp Pulse Pulse Resp BP BP Pulse Ox 07/10/20 07:37 72 07/10/20 07:21 36.3 C L 65 18 111/62 93 07/10/20 02:53 36.3 C L 69 16 114/70 94 07/09/20 23:03 36.3 C L 72 16 103/53 L 93 07/09/20 22:16 66 07/09/20 21:30 106/53 L
[2020-07-10 08:46] LABS: Basophils # (auto) 0.01 K/uL (0-0.2); Basophils % (auto) 0.1 %; Eosinophils # (auto) 0.19 K/uL (0-0.5); Eosinophils % (auto) 1.6 %; Hematocrit (blood only) 31.6 % (37-47); Hemoglobin 9.6 g/dL (12.0-16.0); Immature Granulocytes # (auto) 0.07 K/uL (0.00-0.02); Immature Granulocytes % (auto) 0.6 %; Lymphocytes # (auto) 2.16 K/uL (1.2-3.4); Lymphocytes % (auto) 18.5 %; Mean Corpuscular Hemoglobin 28.2 pg (25-34); Mean Corpuscular Hgb Conc 30.4 g/dL (32-36); Mean Corpuscular Volume 92.9 fL (80-100); Mean Platelet Volume 9.7 fL (7.4-10.4); Monocytes # (auto) 0.22 K/uL (0.11-0.59); Monocytes % (auto) 1.9 %; Neutrophils # (auto) 9.01 K/uL (1.4-6.5); Neutrophils % (auto) 77.3 %; Platelet Count 165 K/uL (130-400); RDW Coefficient of Variation 18.6 % (11.5-14.5); RDW Standard Deviation 63.2 fL (36.4-46.3); White Blood Count 11.66 K/uL (4.8-10.8)
[2020-07-10 09:04] LABS: Albumin Level 1.3 gm/dl (3.4-5.0); BUN Creatinine Ratio 27.4 (10-20); Calcium 8.3 mg/dl (8.5-10.1); Creatinine Clr Calc Pharmacy 56.9 ml/min; Est GFR (African American) 94.8; Est GFR (Non-African American) 81.8; Potassium 3.3 mmol/L (3.5-5.1)
[2020-07-10 09:07] LABS: Albumin Globulin Ratio 0.4 (0.9-2); Bilirubin,Total 0.3 mg/dl (0.2-1); Total Protein 4.3 gm/dl (6.4-8.2)
[2020-07-10] MEDS ORDERED: POTASSIUM CHLORIDE 20 MEQ/15 ML UDC PO STA (10:38)
[2020-07-10] MEDS: PANTOprazole 40 MG in SYRINGE 0 ML IV SCH (11:01)
--- NOTE | 2020-07-10 11:02 | Surgery Progress Note ---
Date of Service July 10, 2020 Assessment & Plan (1) Decubitus ulcer: Postoperative day #2 status post debridement of coccygeal decubitus Cultures revealed Proteus mirabilis sensitive to all but the quinolones Antibiotics as per internal medicine service Wound care as per wound care team. Awaiting their visit today We will sign off. Please let me know if there is anything I can do to be of further assistance. Admission and Anticipated Discharge Date Admission Date: July 07, 2020 Subjective Postoperative day #2 status post debridement of coccygeal decubitus Patient remains nonverbal Does not appear to be in pain Physical Exam Physical Exam: Decubitus does not appear to be erythematous in the surrounding skin. The deeper tissues appear healthy. There is serous drainage but no purulence. Results & Data ([facility]) Vital Signs (Past 12 Hours) Vital Signs Temp Pulse Pulse Resp BP BP Pulse Ox 07/10/20 07:37 72 07/10/20 07:21 36.3 C L 65 18 111/62 93 07/10/20 02:53 36.3 C L 69 16 114/70 94 07/09/20 23:03 36.3 C L 72 16 103/53 L 93
[2020-07-10] MEDS: POTASSIUM CHLORIDE / WTR 10 MEQ/100 ML PLCT IV SCH ×2 (11:45→13:00)
[2020-07-10] MEDS ORDERED: cefTRIAXone SODIUM 2,000 MG in DEXTROSE 5% 50 ML IV SCH (17:30)
[2020-07-10] MEDS: cefTRIAXone SODIUM 2,000 MG in DEXTROSE 5% 50 ML IV SCH (18:28)
[2020-07-10] MEDS: levETIRAcetam 250 MG TAB PO SCH (20:05)
[2020-07-11] MEDS: LEVOTHYROXINE SODIUM 125 MCG TABLET PO SCH (05:19)
[2020-07-11 07:52] LABS: Basophils # (auto) 0.01 K/uL (0-0.2); Basophils % (auto) 0.1 %; Eosinophils # (auto) 0.19 K/uL (0-0.5); Eosinophils % (auto) 1.5 %; Hematocrit (blood only) 35.8 % (37-47); Hemoglobin 11.3 g/dL (12.0-16.0); Immature Granulocytes # (auto) 0.07 K/uL (0.00-0.02); Immature Granulocytes % (auto) 0.5 %; Lymphocytes # (auto) 2.61 K/uL (1.2-3.4); Lymphocytes % (auto) 20.4 %; Mean Corpuscular Hgb Conc 31.6 g/dL (32-36); Mean Corpuscular Volume 91.8 fL (80-100); Mean Platelet Volume 9.7 fL (7.4-10.4); Monocytes # (auto) 0.34 K/uL (0.11-0.59); Monocytes % (auto) 2.7 %; Neutrophils % (auto) 74.8 %; Platelet Count 183 K/uL (130-400); RDW Coefficient of Variation 18.8 % (11.5-14.5); RDW Standard Deviation 63.1 fL (36.4-46.3); White Blood Count 12.82 K/uL (4.8-10.8)
[2020-07-11 08:42] LABS: Albumin Globulin Ratio 0.4 (0.9-2); Albumin Level 1.4 gm/dl (3.4-5.0); BUN Creatinine Ratio 29.7 (10-20); Bilirubin,Total 0.4 mg/dl (0.2-1); Calcium 8.6 mg/dl (8.5-10.1); Creatinine Clr Calc Pharmacy 68.5 ml/min; Est GFR (African American) 100.8; Globulin 3.4 gm/dl (2.5-4.0); Potassium 4.1 mmol/L (3.5-5.1); Total Protein 4.8 gm/dl (6.4-8.2)
[2020-07-11] MEDS: EMBELINE E CREAM 0.05% 15 GM EXT SCH ×2 (09:32→20:30)
[2020-07-11] MEDS: levETIRAcetam 250 MG TAB PO SCH ×2 (10:12→20:29)
[2020-07-11] MEDS: AMIODARONE 200 MG TAB PO SCH (10:12)
[2020-07-11] MEDS: METOPROLOL TARTRATE 25 MG TAB PO SCH ×2 (10:13→20:29)
[2020-07-11] MEDS: FOLIC ACID 1 MG in SYRINGE 9.8 ML IV SCH (10:13)
[2020-07-11] MEDS: ASPIRIN 81 MG ECTAB PO SCH (10:14)
[2020-07-11] MEDS: THIAMINE HCL 100 MG in SYRINGE 9 ML IV SCH (10:14)
[2020-07-11] MEDS: PANTOprazole 40 MG in SYRINGE 0 ML IV SCH (11:32)
--- NOTE | 2020-07-11 12:27 | Hospitalist Progress Note ---
Date of Service July 11, 2020 Assessment & Plan (1) Perianal abscess: (abscess with necrotic tissue over the coccyx decubiti) present on admission on 07/07/2020 s/p Debridement Coccygeal Decubitus, Skin and Deep Subcutaneous Tissue by Dr. Sharma on 07/08/2020 -was empirically started on IV vancomycin and meropenem on admission on 07/07/2020 , continue -follow the culture results -s/p Debridement Coccygeal Decubitus, Skin and Deep Subcutaneous Tissue by Dr. Sharma on 06/18/2020, she just returned from the operating room and PACU. On exam, patient just waking up more - she is not verbal with hospitalist as per documentation that with her dementia she is mostly non verbal, she moves her right upper extremity when asked to move her legs she cannot. will continue to monitor her on medical decker on telemetry -07/09/2020 exam and updates: patient is not ambulatory at baseline and this is confirmed with her son Manuel by telephone, patient does not move her legs on the bed. patient seen and examined at bedside with nurse. patient ate with assistance after surgery on 07/08/2020. But she is not cooperating to take oral medications this morning and some medications have to be adjusted to IV formulation. Her serum sodium remains elevated above 145 and as per her son Manuel this sign of halfway dehydration is not surprising because patient has trouble with oral intake in the senior care setting - likely because of history of dementia. Patient is awake but nonverbal as per general baseline and full review of systems cannot be performed. Patient does not appear to be in acute pain and is breathing comfortably. Patient continues to be on IV fluids and IV antibiotics. A garcia was placed for monitoring of urine output and to keep sacral area clean. Sacral area with dressing. General surgery is following the patient. Wound care nursing consult also requested when they return to hospital service starting on Friday07/10/2020 -07/10/2020 updates: electrolyte and CBC labs to be re-assessed. patient seen and examined this morning and cooperating with nursing staff when being assisted by feeding. The D5 1/2 normal saline can be held for now while the AM labs are pending. Patient's nurse noting that the urine in the garcia is not as much as she expects for output. To prevent complication to kidney function, vancomycin will be stopped on 07/10/2020. The IV meropenem was transitioned to IV ceftriaxone. Nurse also affirming on physical exam that patient moves only the right upper extremities minimally, she does not move the left upper extremity, patient does not move her legs. She does not verbally respond to hospitalist physician but she responds verbally to nurse's questions. Review of systems is limited because of her dementia but patient does not appear to be in acute pain and appears comfortable with her breathing as per wound care nurse "left lower buttocks abscess area connects to coccyx area wound with skin flap. coccyx area wound with undermining, deepest areas from 9-12 o'clock. used strips of Aquacel Ag to fill wounds" 07/11/2020: her electrolytes are at goal on 07/11/2020, she continues to have WBC above 10 K. currently her antibiotics is IV ceftriaxone 2000 mg daily. post- surgical debridement area lower back is difficult to describe but appears to be dry. At this time the only pertinent culture results to guide antibiotic course is: buttock decubiti culture of Proteus mirabilis sensitive to all but the quinolones, some anaerobic gram negative bacilli from 07/08/2020, admission urine culture Enterococcus faecalis with Diptheroids. prefer to avoid QTc prolonging agents. A consult is placed for [facility] Infectious Disease consult. On exam, patient cannot provide of review of systems questions as per usual, does not move her legs as usual, today physician sees more left upper extremity arm movement. no acute distress and breathing on room air (2) Vascular dementia: Hypernatremia -serum sodium 146 on admission and rising to 148 by 07/08/2020 prior to the debridement -since unclear of recent nutritional status in context of patient with dementia, she was given banana bag on this hospital stay, daily thiamine and folic acid, consult decorator consultant -her serum sodium normalized after IV fluids on this hospital saty Hypokalemia -serum potassium of 3 post-operatively on 07/08/2020 -patient was given potassium supplementations. 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 -admission team held the statin, continue to hold for now -her liver enzymes improved during the hospital stay. her statin can be resumed because she is tolerating more oral intake (6) Acute worsening of stage 3 chronic kidney disease: -baseline cr 0.6 to 0.7 compared to 1.0 on admission -creatine downtrended with initial admission IV fluids -no acute issues with creatinine since admission day (7) Atrial fibrillation: (paroxysmal atrial fibrillation) Prolonged QTC by EKGs -currently sinus on telemetry -rate and rhythm controlled on amiodarone and metoprolol -not on anticoagulation from senior care (8) Hypothyroidism: -oral levothyroxine 125 mcg daily is switched to IV 62.5 mcg because of patient delined oral medications in AM of 07/09/2020 -her oral medications are resumed on 07/10/2020 (9) DVT prophylaxis: -SQ Lovenox while in the hospital for DVT prophylaxis case management needs she is from [facility] and her primary care doctor is Dr. Harley Family: Pola Schmid [phone] Manuel Schmdi son [phone] Forest Schmid son and in orthopedics [phone] Admission and Anticipated Discharge Date Admission Date: July 07, 2020 Subjective 07/11/2020: her electrolytes are at goal on 07/11/2020, she continues to have WBC above 10 K. currently her antibiotics is IV ceftriaxone 2000 mg daily. post- surgical debridement area lower back is difficult to describe but appears to be dry. At this time the only pertinent culture results to guide antibiotic course is: buttock decubiti culture of Proteus mirabilis sensitive to all but the quinolones, some anaerobic gram negative bacilli from 07/08/2020, admission urine culture Enterococcus faecalis with Diptheroids. prefer to avoid QTc prolonging agents. A consult is placed for [facility] Infectious Disease consult. On exam, patient cannot provide of review of systems questions as per usual, does not move her legs as usual, today physician sees more left upper extremity arm movement. no acute distress and breathing on room air Review of Systems Review of Systems: Unobtainable due to cognitive status Physical Exam Constitutional: + thin Eyes: EOM intact bilaterally ENMT: external ear and nose normal, oropharynx normal Neck: normal visual inspection Respiratory: normal respiratory effort Cardiovascular: Rate/Rhythm: regular rate Gastrointestinal (Abdomen): normal bowel sounds, soft, nontender, no hepatosplenomegaly Musculoskeletal: Head/Neck/Chest: normocephalic Neurologic: awake Psychiatric: Orientation: alert Genitourinary: + bladder abnormality (garcia) Results & Data Results & Data ([facility]) Vital Signs (Past 12 Hours) Vital Signs Temp Pulse Pulse Resp BP BP Pulse Ox 07/11/20 11:00 97 H 18 116/72 95 07/11/20 07:33 58 L 07/11/20 07:22 36.6 C 61 16 115/57 L 93 07/11/20 04:33 65 07/11/20 04:30 36.4 C L 65 18 110/58 L 92
[2020-07-11] MEDS: DOCUSATE SODIUM/SENNA 50/8.6MG TAB PO SCH ×2 (14:32→20:36)
--- NOTE | 2020-07-11 15:33 | Electrocardiogram Report ---
Test Reason : Blood Pressure : / mmHG Vent. Rate : 057 BPM Atrial Rate : 057 BPM P-R Int : 280 ms QRS Dur : 112 ms QT Int : 498 ms P-R-T Axes : 049 024 019 degrees QTc Int : 484 ms Sinus bradycardia with 1st degree A-V block Low voltage QRS possible Inferior infarct (cited on or before 26-NOV-2013) Abnormal ECG When compared with ECG of 07-JUL-2020 13:21, Nonspecific T wave abnormality, improved in Inferior leads T wave inversion no longer evident in Anterior leads Confirmed by Cristo Mullins ([id number]) on 07/11/2020 3:32:58 PM Referred By: Medina garcia [facility] Confirmed By:Nuno Mullins
[2020-07-11] MEDS: metroNIDAZOLE 500 MG/100 ML BAG IV SCH ×2 (16:09→22:41)
--- NOTE | 2020-07-11 16:39 | Communication Note ---
Date of Service: July 11, [address] Leonard: "This is an 89 y/o female w/ hx of dementia, HLD, CKD3, A fib, and hypothyroidism. Admitted to [facility] on 07/07/20 for sepsis w/ perianal abscess (abscess w/ necrotic tissue over the coccygeal area) s/p debridement of skin and deep subcu tissue (07/08/20). Patient currently has garcia catheter placed. Denisa, nursing staff, assisted during interview. Patient is mostly nonverbal. ABX Meropenem (07/07-) CTX 2 gm iv qd (07/10-) Flagyl (07/11-) BP 116/72/, P 97, R 18, T 36.6C, O2 sat 95% on RA WBC 12.82K H 11.3 Plt 183K CrCl 68.5 AST 94, ALT 90, Alk phos 181 Deep wound cx (07/07): P mirabilis (R to cipo, LVQ only), Bacteroides uniformis, Parabacteroides distasonis Blood cx (07/07): NGTD UA (07/07): WBC >30, LE 2+, bacteria 4+ U cx (07/07): E faecalis (S to amp, cipro, dapto, nitro, pcn, vanco), Diptheroids Buttock decubitus cx (07/08): Proteus mirabilis, Bacteroides uniformis CT pelvis (07/07): 1. Induration of the perianal tissues and left greater than right inferior gluteal folds with a 1.2 x 0.8 cm perianal abscess of the 5:00 position perianal tissues with minimal subcutaneous emphysema noted extending superiorly towards the anus, possibly reflective of a developing sinus tract. There is associated perirectal and perianal inflammatory changes without supralevator extension of a sinus tract or fluid collection. 2. Extensive colonic diverticulosis without acute diverticulitis. Perianal abscess R/o UTI Hx of dementia, CKD3, A fib, and hypothyroidism Hx of allergy to PCN 07/08 - debridement of skin and deep subcu tissue - I agree w/ Ceftriaxone and metronidazole as they are for now. When ready for discharge, may switch to oral 3rd generation cephalosporin, continuing oral metronidazole, completing minimum 14 days of abx therapy from 07/09/20 - I would ignore the Enterococcus and Diptheroids for now. But just in case patient does not do well while focusing on treating for perianal abscess, consider having the Diptheroids identified to r/o such as Corynebacterium urealyticum."
[2020-07-11] MEDS: cefTRIAXone SODIUM 2,000 MG in DEXTROSE 5% 50 ML IV SCH (17:25)
[2020-07-11] MEDS ORDERED: LEVOTHYROXINE SODIUM 62.5 MCG in SYRINGE 0 ML IV SCH (20:00)
[2020-07-11] MEDS ORDERED: ATORVASTATIN 40 MG TAB PO SCH (21:00)
[2020-07-12] MEDS: metroNIDAZOLE 500 MG/100 ML BAG IV SCH (05:42)
[2020-07-12] MEDS: LEVOTHYROXINE SODIUM 125 MCG TABLET PO SCH (05:43)
[2020-07-12] MEDS: AMIODARONE 200 MG TAB PO SCH (08:10)
[2020-07-12] MEDS: levETIRAcetam 250 MG TAB PO SCH (08:10)
[2020-07-12] MEDS: ASPIRIN 81 MG ECTAB PO SCH (08:11)
[2020-07-12] MEDS: METOPROLOL TARTRATE 25 MG TAB PO SCH (08:11)
[2020-07-12 08:15] LABS: Basophils # (auto) 0.01 K/uL (0-0.2); Basophils % (auto) 0.1 %; Eosinophils % (auto) 1.5 %; Hematocrit (blood only) 36.6 % (37-47); Hemoglobin 11.5 g/dL (12.0-16.0); Immature Granulocytes # (auto) 0.08 K/uL (0.00-0.02); Immature Granulocytes % (auto) 0.6 %; Lymphocytes % (auto) 15.4 %; Mean Corpuscular Hemoglobin 28.7 pg (25-34); Mean Corpuscular Hgb Conc 31.4 g/dL (32-36); Mean Corpuscular Volume 91.3 fL (80-100); Mean Platelet Volume 9.7 fL (7.4-10.4); Monocytes # (auto) 0.41 K/uL (0.11-0.59); Neutrophils # (auto) 10.84 K/uL (1.4-6.5); Neutrophils % (auto) 79.4 %; Platelet Count 196 K/uL (130-400); RDW Coefficient of Variation 18.4 % (11.5-14.5); RDW Standard Deviation 61.9 fL (36.4-46.3); Red Blood Count 4.01 M/uL (4.2-5.4); White Blood Count 13.64 K/uL (4.8-10.8)
[2020-07-12] MEDS: FOLIC ACID 1 MG in SYRINGE 9.8 ML IV SCH (08:22)
[2020-07-12] MEDS: THIAMINE HCL 100 MG in SYRINGE 9 ML IV SCH (08:22)
[2020-07-12 08:42] LABS: Albumin Level 1.4 gm/dl (3.4-5.0); BUN Creatinine Ratio 35.6 (10-20); Calcium 8.4 mg/dl (8.5-10.1); Creatinine Clr Calc Pharmacy 88.4 ml/min; Est GFR (African American) 109.6; Est GFR (Non-African American) 94.6; Potassium 3.8 mmol/L (3.5-5.1)
[2020-07-12 08:48] LABS: Albumin Globulin Ratio 0.4 (0.9-2); Bilirubin,Total 0.2 mg/dl (0.2-1); Globulin 3.2 gm/dl (2.5-4.0); Total Protein 4.6 gm/dl (6.4-8.2)
[2020-07-12] MEDS: DOCUSATE SODIUM/SENNA 50/8.6MG TAB PO SCH (11:29)
[2020-07-12] MEDS: PANTOprazole 40 MG in SYRINGE 0 ML IV SCH (11:36)
[2020-07-12] MEDS: EMBELINE E CREAM 0.05% 15 GM EXT SCH (11:36)
--- NOTE | 2020-07-12 13:47 | Hospitalist Progress Note ---
Date of Service July 12, 2020 Assessment & Plan (1) Perianal abscess: (abscess with necrotic tissue over the coccyx decubiti) present on admission on 07/07/2020 s/p Debridement Coccygeal Decubitus, Skin and Deep Subcutaneous Tissue by Dr. Sharma on 07/08/2020 -was empirically started on IV vancomycin and meropenem on admission on 07/07/2020 -s/p Debridement Coccygeal Decubitus, Skin and Deep Subcutaneous Tissue by Dr. Sharma on 06/18/2020 - buttock decubiti culture: Proteus mirabilis sensitive to all but the quinolones, Bacteroides urine culture: Enterococcus faecalis with Diptheroids - prefer to avoid QTc prolonging agents - [facility] consulted, recommendations: - I agree w/ Ceftriaxone and metronidazole as they are for now. When ready for discharge, may switch to oral 3rd generation cephalosporin, continuing oral metronidazole, completing minimum 14 days of abx therapy from 07/09/20 - I would ignore the Enterococcus and Diptheroids for now. But just in case patient does not do well while focusing on treating for perianal abscess, consider having the Diptheroids identified to r/o such as Corynebacterium urealyticum. If need to treat for UTI as well, should consider adding IV Vancomycin - stable for discharge on: Cefdinir 300mg BID x 12 more days to complete 14 day course Flagyl 500mg TID x 12 more days to complete 14 day course Probiotics daily - follow Wound Care Instructions: To left buttock/coccyx wounds-irrigate with saline using 35 cc syringe and 18g needle. Apply strips of Aquacel Ag under skin flap, into undermined areas leaving long into facilitate removal, Fill wound with Aquacel. Cover with OPTi foam. Change every other day and as needed for drainage covering more than 50% of form. Right number pieces of Aquacel used for dressing and be sure to remove all pieces. To right heel-keep waffle boots on at all times, no dressing needed, turn at least every 2 hours - Follow up with [facility] wound care clinic in 1 week Follow-up with [facility] surgeon Dr. Sharma in 1 week (2) Vascular dementia: Hypernatremia Dr. Love's notes: -serum sodium 146 on admission and rising to 148 by 07/08/2020 prior to the debridement -her serum sodium normalized after IV fluids on this hospital saty Hypokalemia Dr. Love's notes: -serum potassium of 3 post-operatively on 07/08/2020 -patient was given potassium supplementations. 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 Love's notes: on admission she had noted elevations in liver function tests (AST 144, ALT 130, ALP 217 T bili 0.8, no abdominal pain) compared to prior known LFTS in 04/2020 that were within normal ranges. -admission team held the statin -her liver enzymes improved during the hospital stay. her statin can be resumed because she is tolerating more oral intake -Repeat liver enzymes in 1 week (6) Acute worsening of stage 3 chronic kidney disease: -Dr. Love's notes: -baseline cr 0.6 to 0.7 compared to 1.0 on admission -creatine downtrended with initial admission IV fluids (7) Atrial fibrillation: (paroxysmal atrial fibrillation) Prolonged QTC by EKGs -Dr. Love's notes: -currently sinus on telemetry -rate and rhythm controlled on amiodarone and metoprolol -not on anticoagulation from detention - QTc 484 on 07/11/20 (8) Hypothyroidism: -Dr. Love's notes: -oral levothyroxine 125 mcg daily is switched to IV 62.5 mcg because of patient delined oral medications in AM of 07/09/2020 -her oral medications are resumed on 07/10/2020 (9) DVT prophylaxis: - given SQ Lovenox while in the hospital for DVT prophylaxis case management needs she is from [facility] and her primary care doctor is Dr. Harley Disposition Discharge to [facility] Follow-up with PCP in 1 week Follow-up with wound care center at [facility] in 1 week Follow-up with [facility] general surgeon Dr. Sharma in 1 week Admission and Anticipated Discharge Date Admission Date: July 07, 2020 Subjective ff up for perianal abscess, etc seen sitting up in bed, comfortable, alert, non verbal not in distress no shortness of breath, pain ; appetite is good per RN taking medications no nausea/vomiting, diarrhea no other symptoms Review of Systems Review of Systems: Unobtainable due to cognitive status Physical Exam Physical Exam: General- not in distress, non verbal, oriented x 0, breathing with no effort or accessory muscle use Eyes- anicteric Neck- no JVD Lungs- clear breath sounds bilaterally, no rales/wheezes Heart- normal rate, regular rhythm; no murmurs Abdomen- normal bowel sounds, nondistended, soft, nontender Extremities- no pretibial edema, no calf tenderness Back- Left coccyx wound: healing well, moderate redness, no discharge Left lower medial buttock : healing well, moderate redness, no discharge Neuro- alert, oriented x0; no new gross focal neurologic deficits Skin- warm & dry Results & Data Results & [facility] ([facility]) Vital Signs (Past 12 Hours) Vital Signs Pulse Pulse Resp BP BP Pulse Ox 07/12/20 12:02 67 18 133/75 96 07/12/20 08:05 54 L 16 142/83 H 92 07/12/20 07:47 54 L 07/12/20 03:02 52 L 19 129/65 90 Laboratory Results Laboratory Results - last 24 hr 07/12/20 07/12/20 07:56 07:56 WBC 13.64 H RBC 4.01 L Hgb 11.5 L Hct 36.6 L MCV 91.3 MCH 28.7 MCHC 31.4 L RDW Std Deviation 61.9 H RDW Coeff of Jessy 18.4 H Plt Count 196 MPV 9.7 Immature Gran % (Auto) 0.6 Neut % (Auto) 79.4 Lymph % (Auto) 15.4 Yell % (Auto) 3.0 Eos % (Auto) 1.5 Baso % (Auto) 0.1 Neut # (Auto) 10.84 H Lymph # (Auto) 2.10 Yell # (Auto) 0.41 Eos # (Auto) 0.20 Baso # (Auto) 0.01 Immature Gran # (Auto) 0.08 H Sodium 144 Potassium 3.8 Chloride 117 H Carbon Dioxide 23 Anion Gap 4.0 BUN 14 Creatinine 0.38 L Est Cr Clr Drug Dosing 88.4 Est GFR ( Amer) 109.6 Est GFR (Non-Af Amer) 94.6 BUN/Creatinine Ratio 35.6 H Glucose 71 Calcium 8.4 L Total Bilirubin 0.2 AST 81 H ALT 80 H Alkaline Phosphatase 171 H Total Protein 4.6 L Albumin 1.4 L Globulin 3.2 Albumin/Globulin Ratio 0.4 L
--- NOTE | 2020-07-12 14:25 | Discharge Summary ---
Date of Service July 12, 2020 Admission HPI Per Admitting Provider This is a 89-year-old female who has significant past medical history of atrial fibrillation, history of right MCA CVA with left hemiparesis, multiple sclerosis, vascular dementia, history of seizure disorder, hypothyroidism, GERD who presents to ED secondary to buttock abscess x3 days. Patient does reside at [facility]. is at bedside. Patient was seen and evaluated on 07/04 [facility] provider [facility] jail. She was diagnosed with buttock cellulitis and started on Bactrim. Unfortunately abscess worsened in which she presented to ED today. She is nonverbal at baseline and denies most of history. Patient does not appear to complain of pain. He states he had something similar a couple years ago that required him to be hospitalized due to MRSA and he is wondering if she has the same thing. She is never anything like this in the past. He is not aware that she had fever or low blood pressure at jail. He is unsure how her oral intake has been over the last few days. In ED she was Covid screen and this was negative. Blood cultures and wound cultures were obtained. She was started on broad spectrum antibiotics and received IVF. History was obtained from ED provider and EPIC notes. Admission Exam Per Admitting Provider Constitutional: Thin, Elderly F, lying in bed, responds to verbal stimuli, vitals as above, NAD, unable to communicate Head: Normocephalic, Atraumatic Eyes: PERRL, conjunctivae normal, anicteric sclerae ENMT: external ear and nose normal, oropharynx dry mucous membranes Neck: trachea midline, no thyromegaly normal visual inspection Respiratory: poor insp effort, lungs clear to auscultation, no wheeze, rales, rhonchi. no accessory muscle use Cardiovascular: RRR, no murmur, no edema Vessels: no JVD or carotid bruit Chest: normal inspection of chest Abdomen: normal bowel sounds, soft, nontender, no hepatosplenomegaly Musculoskeletal: no cyanosis or clubbing, extremities motor strength 5/5 Skin: no rashes, warm and dry normal turgor Neurologic: PERRL, EOMI, accommodation nl, no face palsy, no dysarthria CN's II-XI intact bilaterally and moves all extremities Psychiatric: A+Ox3, euthymic affect Lymphatic: no cervical or axillary lymphadenopathy :5x5 are of erythema l buttock with purulent foul smelling brown drainage Principal Diagnosis Perianal abscess, status post debridement of coccygeal decubitus, skin and deep subcutaneous tissue Discharge Exam General- not in distress, non verbal, oriented x 0, breathing with no effort or accessory muscle use Eyes- anicteric Neck- no JVD Lungs- clear breath sounds bilaterally, no rales/wheezes Heart- normal rate, regular rhythm; no murmurs Abdomen- normal bowel sounds, nondistended, soft, nontender Extremities- no pretibial edema, no calf tenderness Back- Left coccyx wound: healing well, moderate redness, no discharge Left lower medial buttock : healing well, moderate redness, no discharge Neuro- alert, oriented x0; no new gross focal neurologic deficits Skin- warm & dry Discharge Data Allergies Allergy/AdvReac Type Severity Reaction Status Date / Time Penicillins Allergy Mild RASH Verified 07/07/20 13:46 Consultations 07/07/20 14:54 ED Decision to Admit Stat 07/07/20 15:38 Consult General Surgery Routine 07/11/20 09:22 Consult Infectious Diseases Routine Procedures Performed Operation Date: 07/08/20 09:00 Actual Procedures p Debridement Coccygeal Decubitus, Skin and Deep Subcutaneous Tissue - Bipin Sharma MD Ordered Studies 07/07/20 12:16 CT pelvis w/IV con only Stat FINDINGS: Mixed plaque of the aorta and iliac arteries. No aneurysm. No adenopathy. Extensive colonic diverticulosis without acute diverticulitis. There is mild wal l thickening of the rectum and anus with mild perirectal stranding. Unremarkable uterus. Numerous urinary bladder diverticula with urinary bladder trabeculation. There is induration of the perianal tissues and inferior gluteal cleft cyst. Within the left inferomedial gluteal cleft there is a peripherally enhancing 1.2 x 0.8 cm fluid collection, image 202 of series 3. Adjacent subcutaneous emphyse ma is noted tracking superiorly towards the 5:00 position of the anus. No supralevator extension identified. No drainable fluid collection. Degenerative changes of the spine, pelvis and hips. IMPRESSION: 1. Induration of the perianal tissues and left greater than right inferior gluteal folds with a 1.2 x 0.8 cm perianal abscess of the 5:00 position perianal tissues with minimal subcutaneous emphysema noted extending superiorly towards the anus, possibly reflective of a developing sinus tract. There is associated perirectal and perianal inflammatory changes without supralevator extension of a sinus tract or fluid collection. 2. Extensive colonic diverticulosis without acute diverticulitis. Chest x-ray FINDINGS: Large partially calcified mass of the mediastinum is redemonstrated measuring up to approximately 9.9 cm, previously 8.5 cm. Calcified plaque the thoracic aorta. No pneumothorax, large pleural effusion or overt pulmonary edema. Mild left lung base linear opacities favor atelectasis/scarring. No airspace consolidation typical for pneumonia. Degenerative changes of the shoulders and spine. IMPRESSION: 1. Mild left lung base opacities favor atelectasis/scarring. 2. 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 This has mildly increased in size from 2014 and has been present dating back to at least 2011. Hospital Course (1) Perianal abscess: (abscess with necrotic tissue over the coccyx decubiti) present on admission on 07/07/2020 s/p Debridement Coccygeal Decubitus, Skin and Deep Subcutaneous Tissue by Dr. Sharma on 07/08/2020 -was empirically started on IV vancomycin and meropenem on admission on 07/07/2020 -s/p Debridement Coccygeal Decubitus, Skin and Deep Subcutaneous Tissue by Dr. Sharma on 06/18/2020 - buttock decubiti culture: Proteus mirabilis sensitive to all but the quinolones, Bacteroides urine culture: Enterococcus faecalis with Diptheroids - prefer to avoid QTc prolonging agents - Radha ROMAN consulted, recommendations: - I agree w/ Ceftriaxone and metronidazole as they are for now. When ready for discharge, may switch to oral 3rd generation cephalosporin, continuing oral metronidazole, completing minimum 14 days of abx therapy from 07/09/20 - I would ignore the Enterococcus and Diptheroids for now. But just in case patient does not do well while focusing on treating for perianal abscess, consider having the Diptheroids identified to r/o such as Corynebacterium urealyticum. If need to treat for UTI as well, should consider adding IV Vancomycin - stable for discharge on: Cefdinir 300mg BID x 12 more days to complete 14 day course Flagyl 500mg TID x 12 more days to complete 14 day course Probiotics daily - follow Wound Care Instructions: To left buttock/coccyx wounds-irrigate with saline using 35 cc syringe and 18g needle. Apply strips of Aquacel Ag under skin flap, into undermined areas leaving long into facilitate removal, Fill wound with Aquacel. Cover with OPTi foam. Change every other day and as needed for drainage covering more than 50% of form. Right number pieces of Aquacel used for dressing and be sure to remove all pieces. To right heel-keep waffle boots on at all times, no dressing needed, turn at least every 2 hours - Follow up with [facility] wound care clinic in 1 week Follow-up with [facility] surgeon Dr. Sharma in 1 week (2) Vascular dementia: Hypernatremia Dr. Love's notes: -serum sodium 146 on admission and rising to 148 by 07/08/2020 prior to the debridement -her serum sodium normalized after IV fluids on this hospital saty Hypokalemia Dr. Love's notes: -serum potassium of 3 post-operatively on 07/08/2020 -patient was given potassium supplementations. 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 Love's notes: on admission she had noted elevations in liver function tests (AST 144, ALT 130, ALP 217 T bili 0.8, no abdominal pain) compared to prior known LFTS in 04/2020 that were within normal ranges. -admission team held the statin -her liver enzymes improved during the hospital stay. her statin can be resumed because she is tolerating more oral intake -Repeat liver enzymes in 1 week (6) Acute worsening of stage 3 chronic kidney disease: -Dr. Love's notes: -baseline cr 0.6 to 0.7 compared to 1.0 on admission -creatine downtrended with initial admission IV fluids (7) Atrial fibrillation: (paroxysmal atrial fibrillation) Prolonged QTC by EKGs -Dr. Love's notes: -currently sinus on telemetry -rate and rhythm controlled on amiodarone and metoprolol -not on anticoagulation from jail - QTc 484 on 07/11/20 (8) Hypothyroidism: -Dr. 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 This has mildly increased in size from 2014 and has been present dating back to at least 2011. Please refer to the ordered studies above for full chest Xray report Further evaluation and management as an outpatient (10) DVT prophylaxis: - given SQ Lovenox while in the hospital for DVT prophylaxis Disposition Discharge to [facility] Follow-up with PCP in 1 week Follow-up with wound care center at [facility] in 1 week Follow-up with [facility] general surgeon Dr. Sharma in 1 week Total Time Total Time Spent Total Time Spent (In Minutes): 50 minutes Discharge Plan Discharge Items Patient Disposition: Trans Resident Long-Term Care Reason For Visit: PERIANAL ABSCESS Discharge Diagnosis: Perianal abscess (abscess with necrotic tissue over the coccyx decubiti) present on admission on 07/07/2020 s/p Debridement Coccygeal Decubitus, Skin and Deep Subcutaneous Tissue by Dr. Sharma on 07/08/2020 Hypernatremia Hypokalemia Elevated transaminase level Vascular dementia History of CVA with residual deficit Hypothyroidism paroxysmal atrial fibrillation Acute worsening of stage 3 chronic kidney disease Activity: Resume your previous activity Non-emergency contact: Primary Care Provider and Surgeon Call non-emergency contact if: you have any medication questions, your symptoms worsen, your pain is not controlled, your pain is worsening, your pain is unusual for you, your pain is concerning for you, you have a fever, your wound has increased redness, your wound has increased drainage and your wound pain has increased Follow-up/Referrals: Bipin Sharma MD [Physician] - Medina Morse at [place] [Primary Care Provider] - Diet: Regular Diet Texture: Easy to Chew Diet Comment: Minced and moist diet Addtl Attending Provider Instructions: Please refer to accompanying hospital discharge summary for further details. follow Wound Care Instructions: To left buttock/coccyx wounds-irrigate with saline using 35 cc syringe and 18g needle. Apply strips of Aquacel Ag under skin flap, into undermined areas leaving long into facilitate removal, Fill wound with Aquacel. Cover with OPTi foam. Change every other day and as needed for drainage covering more than 50% of form. Right number pieces of Aquacel used for dressing and be sure to remove all pieces. To right heel-keep waffle boots on at all times, no dressing needed, turn at least every 2 hours - Follow up with [facility] wound care clinic in 1 week Follow-up with [facility] surgeon Dr. Sharma in 1 week Pending Studies at Discharge: Yes Studies:: Covid test result taken 07/12/2020 Repeat liver function test in 1 week Stand-Alone Forms: My [facility] Skilled Items Patient informed of condition?: Yes DNR: Yes Discharge Level of Care: Skilled Communicable Disease: No Discharge Prognosis: Improving Lines: None Urinary Catheter: Yes Medications and DC Order Prescriptions: New cefdinir 300 mg capsule 300 mg PO Q12H Qty: 24 RF: 0 metronidazole [Flagyl] 500 mg tablet 500 mg PO Q8H Qty: 36 RF: 0 Culturelle 10 billion cell capsule 1 cap PO DAILY Qty: 30 RF: 0 Continued atorvastatin [Lipitor] 40 mg Tablet 40 mg PO HS RF: 0 amiodarone [Pacerone] 200 mg Tablet 200 mg PO QAM RF: 0 sennosides-docusate sodium [Senna-S] 8.6-50 mg Tablet 2 tab PO BID RF: 0 levothyroxine [Synthroid] 125 mcg Tablet 125 mcg PO HS RF: 0 clobetasol-emollient 0.05 % cream 1 applic topical BID RF: 0 levetiracetam [Keppra] 100 mg/mL Solution 750 mg PO BID RF: 0 metoprolol tartrate 25 mg Tablet 12.5 mg PO BID RF: 0 acetaminophen [Tylenol] 325 mg Tablet 650 mg PO Q6H PRN (Reason: Pain) RF: 0 aspirin 81 mg Tablet,Delayed Release (Dr/Ec) 162 mg PO QAM RF: 0 pantoprazole 40 mg tablet,delayed release (DR/EC) 40 mg PO QAM RF: 0 nystatin 100,000 unit/gram powder 1 applic TOPICAL Q12 PRN (Reason: Skin Irritation) RF: 0 Discontinued sulfamethoxazole-trimethoprim 800-160 mg tablet 1 tab PO BID RF: 0 Discharge Orders: Discharge Order (Routine); Ordered 07/12/20 Ordered By: Greg Schuler Admission Data Admit Date/Time: 07/07/20 15:38 Attending Provider: Greg Schuler Admit Provider: Isaiah Rios Primary Care Provider: Medina Morse [place] Other Providers: Medina Morse [facility] ; Isaiah Rios ; Bipin Sharma ; Albert Verma ; Maris Leonard ; Dm Gusman I. ; Tristan Samuels II ; Ely Contreras ; Bipin Hoover ; Jhonny Love
== END 2020-07-12 15:05 | DRG 356 ==
LOC: ED 12:00 → SUATTDRO 15:38 → 2W 15:38